=== PATIENT | female | born 1980 | race Caucasian/White ===

== ENCOUNTER 2023-09-24 13:21 | Emergency (ER) | payer MEDICARE, MEDICAID, SELFPAY ==
[2023-09-24 13:34] VITALS: BP 134/91; PULSE 80; RESP 18; TEMP 36.6; O2SAT 100
--- NOTE | 2023-09-24 13:38 | ED.URI ---
HPI - URI/Sore Throat General Chief Complaint: Upper Respiratory Infection Stated Complaint: Chest Congestion/Sore throat/Cough Time Seen by Provider: 09/24/23 13:53 Source: patient and RN notes reviewed Mode of arrival: ambulatory Limitations: no limitations History of Present Illness HPI Narrative: 43-year-old female presents concern for 2 day history of cough, chest congestion. Reports her cough is productive. She has a history of COPD and chronic bronchitis. She has been taking [id number] medications with little relief she denies fever, aches, chills, sweats MD elicited complaint: cough and sore throat Related Data Home Medications Medication Instructions Recorded Confirmed citalopram 40 mg tablet (Celexa) 40 mg PO DAILY 06/30/21 01/10/23 hydrocodone 5 mg-acetaminophen 325 1 tablet PO Q8H PRN 06/30/21 01/10/23 mg tablet omeprazole 20 mg capsule,delayed mg 09/24/23 release Allergies Allergy/AdvReac Type Severity Reaction Status Date / Time No Known Allergies Allergy Verified 09/24/23 13:39 Review of Systems Review of Systems: CONSTITUTIONAL: Denies malaise, chills, sweats, or fever. EYES: Denies visual changes, redness, or discharge. ENT: Reports rhinorrhea, congestion CARDIOVASCULAR: Denies chest pain, palpitations, or edema. RESPIRATORY: Reports cough and chest congestion. Denies dyspnea. GASTROINTESTINAL: Denies abdominal pain, nausea, vomiting, diarrhea SKIN: Denies rash or itching. MUSCULOSKELETAL: Denies myalgia. NEUROLOGIC: Denies headache. All systems reviewed & are unremarkable except as noted in HPI and below PMFSH Past Medical History Medical History Asthma Bipolar disorder Carpal tunnel syndrome, bilateral Chronic back pain Diabetes History of colon polyps HTN (hypertension) Sleep apnea Surgical History Surgical History History of carpal tunnel release of both wrists left 2011 right 2013 History of cholecystectomy History of hand surgery Right thumb tendon repair History of tonsillectomy Family History Family History Father Diabetes mellitus Hypertension Mother Depression Grandparent Cancer Grandparent Diabetes mellitus Hypertension Cancer Cerebrovascular accident Social History Social History (Updated 01/10/23 @ 14:14 by Olena Dolan MA) Smoking status: Never smoker Alcohol intake: never Substance use: current Substance use type: marijuana Lack of Transportation: No Lack of Food: Sometimes True Current Housing: I Have Housing Concerned About Future Housing: No Difficulty Paying Gas/Electric Bills: No Difficulty Paying for Meds: No Currently Unemployed: No Education: High School Diploma/GED Difficulty w/ Childcare or Family Care: No Comments At time of signature, agree with nursing past medical, surgical, social and family history. There is no relevant family history pertinent to the presenting complaint Exam Narrative: GENERAL: Well-appearing, well-nourished, and in no acute distress. HEAD: Normocephalic EYES: PERRLA, conjunctivae clear ENT: Nares clear, turbinates edematous and erythematous, clear discharge. Mucous membranes moist. TM pearly enciso with sharp light reflex bilaterally; no tragal tenderness. Oropharynx not erythematous without lesions. Tonsils not enlarged and without exudate, no drooling, no hoarseness, no trismus, uvula midline. NECK: Supple. No lymphadenopathy CHEST: Clear to auscultation, breath sounds equal. No wheezing, rhonchi, rales, or stridor. No respiratory distress, speaks in full sentences. HEART: Regular rate and rhythm. No murmur heard. SKIN: Warm, dry, no rash. NEURO: Alert and oriented x3. PSYCH: Normal mood and affect Course Course Emergency Course: Patient is aware of diagnosis, understands and agrees
== END 2023-09-24 14:07 | disposition home or self-care (01) ==
PROVIDERS: Emergency Provider Nurse Practitioner
DX: J06.9 Acute upper respiratory infection, unspecified (principal); J44.9 Chronic obstructive pulmonary disease, unspecified; F12.90 Cannabis use, unspecified, uncomplicated; E11.9 Type 2 diabetes mellitus without complications; I10 Essential (primary) hypertension
CPT/HCPCS: 87081; 87880; 99213; G0463

== ENCOUNTER 2025-02-04 18:30 | Emergency (ER) | payer MEDICARE, MEDICAID, SELFPAY ==
--- NOTE | ~2025-02-04 | XR_ITS ---
XR hip RT 2V w AP pelvis Ordering provider: Tee Ross APRN History: . right hip pain s/p fall- hx hip arthoplasty . Comparison: None. FINDINGS: BONES: No acute fracture or dislocation. HIP JOINT SPACES: Bilateral arthroplasty. SACROILIAC JOINT SPACES/LUMBAR SPINE: The sacroiliac joint spaces are normal. Mild degenerative arevalo es of the visualized lower lumbar spine. PUBIC SYMPHYSIS: Normal. SOFT TISSUES: Normal. IMPRESSION: No acute osseous abnormality pelvis and right hip. Bilateral hip arthroplasty. Reviewed, dictated and finalized at location A.
--- NOTE | ~2025-02-04 | XR_ITS ---
XR knee RT min 4V Ordering provider: Tee Ross APRN History: . right anterior lateral knee pain s/p fall . Comparison: None. FINDINGS: BONES: No acute fracture or dislocation. JOINT SPACES: Normal. SOFT TISSUES: Normal. IMPRESSION: No acute osseous abnormality right knee. Reviewed, dictated and finalized at location A.
--- NOTE | 2025-02-04 18:33 | ED_ITS ---
HPI - Extremity Injury (Lower) General Chief Complaint: Fall Stated Complaint: Fall Injury/Right knee, Leg Time Seen by Provider: 02/04/25 18:32 Source: patient Mode of arrival: ambulatory Limitations: no limitations History of Present Illness HPI Narrative: Abbie is a 44-year-old female patient presenting to the clinic today with complaints of right knee and right hip/femur pain status post fall. She reports she tripped over a tent bag handle this morning. Is having pain to the right lateral anterior knee and to the right hip/thigh. Bruising noted to the anterior knee. Is able to walk with mild to moderate pain. Rates pain 2/10 on the hip and 5/ 10 on the knee. History of bilateral hip arthroplasty Related Data Home Medications ?Medication ?Instructions ?Recorded ?Confirmed ?Last Taken ?Type citalopram 40 mg tablet (Celexa) 40 mg PO DAILY 06/30/21 01/10/23 Unknown History hydrocodone 5 mg-acetaminophen 325 1 tablet PO Q8H PRN 06/30/21 01/10/23 Unknown History mg tablet omeprazole 20 mg capsule,delayed mg 09/24/23 Unknown History release Allergies Allergy/AdvReac Type Severity Reaction Status Date / Time No Known Allergies Allergy Verified 02/04/25 18:42 Review of Systems Review of Systems: Pertinent positives per HPI. Patient denies any fever, chills, rash, headache, visual changes, dizziness, cough, runny nose, sore throat, shortness of breath, chest pain, palpitations, nausea, vomiting, diarrhea, constipation, abdominal pain, or any urinary issues. [facility] Past Medical History Medical History History of colon polyps Bipolar disorder Diabetes Carpal tunnel syndrome, bilateral Chronic back pain Sleep apnea Asthma HTN (hypertension) Surgical History Surgical History History of hand surgery Right thumb tendon repair History of carpal tunnel release of both wrists left 2010 right 2012 History of cholecystectomy History of tonsillectomy Family History Family History Father Diabetes mellitus Hypertension Mother Depression Grandparent Cancer Grandparent Diabetes mellitus Hypertension Cancer Cerebrovascular accident Social History Social History Smoking status: Never smoker Alcohol intake: never Substance use: current Substance use type: marijuana Lack of Transportation: No Lack of Food: Sometimes True Current Housing: I Have Housing Concerned About Future Housing: No Difficulty Paying Gas/Electric Bills: No Difficulty Paying for Meds: No Currently Unemployed: No Education: High School Diploma/GED Difficulty w/ Childcare or Family Care: No Comments At the time of my signature, I reviewed and agree with the nursing past medical, surgical, social, and family history. There is no relevant family history pertinent to the patient complaint. Exam Narrative: General: Well-developed, well nourished, in no apparent distress Head: Normocephalic, atraumatic. Cardio: Regular rate and rhythm, s1 and s2 normal, no murmur appreciated. Resp: Clear to auscultation bilaterally, no rhonchi, rales, wheezing or rubs. Musculoskeletal: No deformity, bruising with mild swelling to the right lateral anterior knee, no bruising or swelling noted to the right hip or femur, tender to palpation over the lateral and anterior hip as well as over the lateral a nterior knee, negative valgus and varus testing of the right knee, negative anterior and posterior drawer testing of the right knee grossly normal range of motion, muscle strength strong and equal, peripheral pulse strong, no edema, no cyanosis, normal gait and station Course Course Emergency Course: Portions of this record may have been created with voice recognition software. Level of Care: Express Care Visit Vital Signs Vital signs: Vital Signs Temperature 36.9 C 02/04/25 18:45 Pulse Rate 85 02/04/25 18:45 Respiratory Rate 20 02/04/25 18:45 Blood Pressure 152/80 H 02/04/25 18:45 Pulse Oximetry 99 02/04/25 18:45 Oxygen Delivery Room Air 02/04/25 18:45 Temperature 36.9 C 02/04/25 18:45 Pulse Rate 85 02/04/25 18:45 Respiratory Rate 20 02/04/25 18:45 Blood Pressure 152/80 H 02/04/25 18:45 Pulse Oximetry 99 02/04/25 18:45 Oxygen Delivery Room Air 02/04/25 18:45 Vital signs reviewed MDM - Extremity Injury (Lower) MDM Narrative Medical decision making narrative: At the time of visit patient is resting comfortably on the exam table. Patient appears to be nontoxic. Diagnostics: X-ray of the right hip with pelvis and right knee was performed. X-rays were negative for any sign of fracture or malalignment. Bilateral hip arthroplasties intact Plan: I suspect patient has right knee contusion of the left hip/thigh contusion. Alejandro wrap was given. Ice pack was given. Work note was given. Supportive measures were discussed with the patient and they voiced understanding discharge instructions and agrees to treatment plan. Return precautions reviewed Differential Diagnosis Differential diagnosis: Likely acute internal derangement of knee and other (Knee sprain, tibia fracture, fibula fracture, femur fracture, hip fracture, contusion, hip sprain,) Imaging Data Radiologist's impression: ITS Impressions Knee X-Ray 02/04/25 19:19 IMPRESSION: No acute osseous abnormality right knee. Hip/Pelvis X-Ray 02/04/25 19:22 IMPRESSION: No acute osseous abnormality pelvis and right hip. Bilateral hip arthroplasty. Discharge Plan Discharge Clinical Impression: Contusion of knee Qualifiers: Encounter type: initial encounter Laterality: right Qualified Code(s): S80.01XA - Contusion of right knee, initial encounter Contusion of hip and thigh Qualifiers: Encounter type: initial encounter Laterality: right Qualified Code(s): S70.01XA - Contusion of right hip, initial encounter Patient Disposition: Home Condition: Stable Instructions: Antibiotic Form, Contusion in Adults (ED), Knee Pain (ED), Hip Contusion (ED) Additional Instructions: X-ray of the right hip/femur and right knee are negative for any sign of fracture or malalignment Rest, ice, elevate, and wear alejandro wrap as directed Tylenol/motrin for pain as discussed. Gradually bear weight No running or sports until healed. Follow up with your PCP if symptoms persist more than 1 week. Patient Language: Sinhala Prescriptions: No Action omeprazole 20 mg capsule,delayed release(DR/EC) citalopram [Celexa] 40 mg tablet 40 mg PO DAILY hydrocodone-acetaminophen 5-325 mg tablet 1 tablet PO Q8H PRN Follow-up/Referrals: Anupam,Ralph Banks MD [Primary Care Provider] - Stand Alone Forms: Work/School Release IP Time of Disposition: 19:31 Quality [facility] Nursing Documentation ED NIHSS nursing documentation: reviewed/agree
--- OUTSIDE RECORDS SUMMARY | 2025-02-04 18:33 | XMS_ITS | Data Portability ---
Author Organization [facility] SATHISHGlroia Address [address] [place] [address] Assessment Encounter Date Assessment Date Assessment LastModified by Organization Details LastModified Time 07/17/2016 07/17/2016 Interested in BT L, likely not possible laparoscopically due to size and surgical hx. Discussed pros and cons on Essure. Will likely do it after annual in September [email or web address] Not available 07/17/2016 12:52:34 10/09/2016 10/09/2016 Desk Assistant exam very difficult due to extreme obesity and redundant vulvar tissue. Scheduled for essure BTL in 10 days. Discussed 50/50 chances based on difficulty of exam Not available 10/09/2016 12:05:46 11/05/2016 11/05/2016 Post op check after Essure stressed importance of f/u test in 3 months ; she wants HSG not TVU Not available 11/05/2016 17:31:24 06/25/2017 06/25/2017 discussed situation at some length. 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 Reports being promiscuous lately - will check STDs from urine. clinical breast exam negative has essure for contraception Not available 08/06/2019 14:44:19 Plan of Treatment Reminders Order Date Submit Date Provider Last Modified By Organization Details Last Modified Time Details Appointments None recorded. Lab CT + NG RNA, PCR, unspecified specimen 2018 019 arrrn [facility], [address] [facility] [facility] [address] [facility] [address], [address], [place], [address], 9 16:06:57 HBsAg (hepatitis B surface Ag), EIA, serum 2016 017 [facility], [address], [address], [place], [address], 7 07:14:11 CT + NG + TV, DNA, urine/swab 2016 017 [facility], [address] [place] [address], [address], [place], [address], 7 08:28:42 hepatitis C Ab, signal-to-c utoff, serum or plasma 2016 017 [facility], [address] [place] [address], [address], [place], [address], 7 07:14:11 HIV 1+2 AB + HIV 1 p24 Ag, qualitative immunoassay , serum 2016 017 [facility], [address] [place] [address], [address], [place], [address], 7 07:14:10 pap, IG + CT/NG/TV + reflex HPV (16+18) 2016 017 [facility], [address] [place] [address], [address], [place], [address], 7 08:40:17 Referral None recorded. Procedures None recorded. Surgeries None recorded. Imaging None recorded. Medication Orders None recorded. Patient TargetsNo targets recorded. Patient Instructions Encounter Date Encounter Id Patient Instructions Last Modified By Organization Details Last Modified Time 10/09/2016 [id number] When You Want to Lose Weight: Care Instructions [email or web address] Not available 10/09/2016 12:06:03 08/06/2019 [id number] When You Want to Lose Weight: Care Instructions Not available 08/06/2019 14:43:11 Reason for Referral None Reported. Results Created Date Observation Date Name Description Value Unit Range Abnormal Flag Note LastModifiedBy Organization Detail LastModifiedTime 10/09/19 17 10/10/2016 pap, IG + CT/NG + refle x HPV diagnosis: VITALY LOZANO IVE FOR INTRA EPITH ELIAL LESIO N AND SENIA FELIX . Not Available [facility] ([facility]) [address] [place], [address], 10/11/2016 08:40:17 10/09/19 17 10/10/2016 pap, IG + CT/NG + refle x HPV specimen adequacy: VITALY Carter SATIS FACTO RY FOR EVALU ATION . NO ENDOC ERVIC AL COMPO NENT IS IDENT IFIED . Not Available [facility] ([facility]) [address] [facility], [place], [address], 10/11/2016 08:40:17 10/09/19 17 10/10/2016 pap, IG + CT/NG + refle x HPV clinician provided ICD10: VITALY Carter Z01.4 19 Z11.3 Not Available [facility] ([facility]) [address] [place], [address], 10/11/2016 08:40:17 10/09/19 17 10/10/2016 pap, IG + CT/NG + refle x HPV performed by: HENRRY MACIAS (ASCP ) Not Available [facility] ([facility]) [address] [place], [address], 10/11/2016 08:40:17 10/09/19 17 10/10/2016 pap, IG + CT/NG + refle x HPV . . Not Available [facility] ([facility]) [address] [place], [address], 10/11/2016 08:40:17 10/09/19 17 10/10/2016 pap, IG + CT/NG + refle x HPV note: COMMEN T THE PAP SMEAR IS A SCREE KEO TEST DESIG JALIL TO AID IN THE DETEC TION OF LANEY LIGNA NT AND MALIG NANT CONDI TIONS OF THE UTERI NE CERVI X. IT IS NOT A DIAGN OSTIC PROCE DURE AND SHOUL D NOT BE USED THE SOLE MEANS OF DETEC TING CERVI MARYCHUY CANCE R. BOTH FALSE -POSI TIVE AND FALSE -NEGA TIVE REPOR TS DO OCCUR . Not Available [facility] ([facility]) [address] [place], [address], 10/11/2016 08:40:17 10/09/19 17 10/10/2016 pap, IG + CT/NG + refle x HPV test methodology: COMMEN T THIS LIQUI D BASED THINP REP(R ) PAP TEST WAS SCREE JALIL WITH THE USE OF AN IMAGE GUIDE D SYSTE M. Not Available [facility] ([facility]) [address] [place], [address], 10/11/2016 08:40:17 10/09/1910/10/2016 pap, IG + CT/NG + refle x HPV . COMMEN T THE HPV DNA REFLE X CRITE LUCIEN WERE NOT MET WITH THIS SPECI MEN RESUL T THERE FORE, NO HPV TESTI NG WAS PERFO RMED. Not Available [facility] ([facility]) [address] [place], [address], 10/11/2016 08:40:17 10/09/1910/11/2016 pap, IG + CT/NG + refle x HPV chlamydia, nuc. acid amp NEGATI VE negati ve Not Available [facility] ([facility]) [address] [place], [address], 10/11/2016 08:40:17 10/09/19 17 10/11/2016 pap, IG + CT/NG + refle x HPV gonococcus, nuc. acid amp NEGATI VE negati ve Not Available [facility] ([facility]) [address] [place], [address], 10/11/2016 08:40:17 06/25/20 17 06/26/2017 HIV 1+2 AB + HIV 1 p24 Ag, quali tativ e immun oassa y, serum HIV screen 4TH generation wrfx Non Reacti ve non reacti ve Not Available [facility] ([facility]) [address] [facility], [place], [address], 06/26/2017 07:14:10 06/25/20 17 06/26/2017 hepat itis C Ab, signa l-to- cutof f, serum or plasm a hep C virus Ab <0.1 s/co_ ratio 0.0-0. 9 Negat kaila: < 0.8 Indet ermin ate: 0.8 - 0.9 Posit kaila: > 0.9 The CDC recom mends that a posit kaila HCV antib jigna resul t be follo wed up with a HCV Nucle ic Acid Ampli ficat ion test (5507 13). Not Available [facility] ([facility]) [address] [facility], [place], [address], 06/26/2017 07:14:11 06/25/20 17 06/26/2017 HBsAg (hepa titis B surfa ce Ag), EIA, serum HBsAg screen Negati ve negati ve Not Available [facility] ([facility]) [address] [facility], [place], [address], 06/26/2017 07:14:11 06/25/20 17 06/27/2017 CT + NG + TV, DNA, urine /swab chlamydia by NE Negati ve negati ve Not Available [facility] ([facility]) [address] [place], [address], 06/27/2017 08:28:42 06/25/20 17 06/27/2017 CT + NG + TV, DNA, urine /swab gonococcus by NE Negati ve negati ve Not Available [facility] ([facility]) [address] [place], [address], 06/27/2017 08:28:42 06/25/20 17 06/27/2017 CT + NG + TV, DNA, urine /swab trich vag by NE Positi ve negati ve abnormal Not Available [facility] ([facility]) [address] [facility], [place], [address], 06/27/2017 08:28:42 08/06/20 19 08/08/2019 CT + NG + TV, DNA, urine /swab chlamydia by NE Negati ve negati ve Not Available [facility] ([facility]) [address] [place], [address], 08/08/2019 07:09:34 08/06/2008/08/2019 CT + NG + TV, DNA, urine /swab gonococcus by NE Negati ve negati ve Not Available [facility] ([facility]) [address] [place], [address], 08/08/2019 07:09:34 08/06/2008/08/2019 CT + NG + TV, DNA, urine /swab trich vag by NE Negati ve negati ve Not Available [facility] ([facility]) [address] [place], [address], 08/08/2019 07:09:34 Result Notes None recorded. Problems Name Problem SNOMED Code Status Onset Date Resolution Date Notes Provider Name and Address Organization Details Recorded Time Gestational diabetes mellitus 35109354 Active Ann-Marie martinez [place] null, [place] - [facility] 17:18:08 Pre-eclampsia 032502373 Active x 3 Ann-Marie martinez [place], [place] [facility] 17:18:08 Irregular periods 69565684 Active Aaron Slater MD Attn: Silvana archibald,[address] [facility], [place], [address], [place] - [facility] 15:01:44 Problem Notes None recorded. Procedures Surgical History Date Name Laterality Status Provider Name and Address Organization Details Recorded Time 7 Tubal Ligation completed Ann-Marie MadrigalROVERTO arteaga [facility] 11/05/2016 17:02:16 7 Date of Last Pap Smear completed Ann-Marie TrujilloROVERTO [facility] 10/11/2016 08:41:34 Caesarean Section completed Ann-Marie Trujillo, [place] [facility] 01/31/2015 17:18:08 Imaging Results None recorded. Procedure Notes None recorded. Medical Equipment None Reported. Allergies Allergen ID Allergen Name Allergen Category Reaction Reaction Severity Criticality Documentation Date Start Date Code Code System Note Provider Name and Address Organization Details Recorded Time 963 codeine medicatio n Not available Not available Not available 07/14/2014 2670 RxNorm Marisa Whitaker RN null, [facility] 4 14:51:02 Medications Name Sig Start Date Stop Date Status Note LastModified by Organization Details LastModified Time amoxicillin 500 mg capsule active Not Available Not Available Not Available atorvastatin 40 mg tablet active Not Available Not Available Not Available metformin 500 mg tablet active Not Available Not Available Not Available terconazole 0.4 % vaginal cream Insert 1 g as needed by vaginal route at bedtime for 7 days. active Not Available Not Available No t Available bupropion HCl SR 150 mg tablet,12 hr sustained-re lease active Not Available Not Available Not Available atorvastatin 20 mg tablet active Not Available Not Available Not Available labetalol 200 mg tablet active Not Available Not Available Not Available citalopram 40 mg tablet active Not Available Not Available Not Available azithromycin 250 mg tablet TAKE 2 TABLETS (500 MG) BY ORAL ROUTE ONCE DAILY FOR 1 DAY THEN 1 TABLET (250 MG) BY ORAL ROUTE ONCE DAILY FOR 4 DAYS active Not Available Not Available No t Available Necon 1/50 (28) 1 mg-50 mcg tablet active Not Available Not Available N ot Available glyburide 5 mg tablet active Not Available Not Available No t Available Novolin N NPH U-100 Insulin isophane 100 unit/mL subcutaneous susp active Not Available Not Available Not Available tizanidine 4 mg tablet active Not Available Not Available No t Available lisinopril 20 mg tablet active Not Available Not Available Not Available prednisone 20 mg tablet active Not Available Not Available Not Available terconazole 0.8 % vaginal cream active Not Available Not Available Not Available metronidazol e 500 mg tablet Take 2 tablets every 12 hours by oral route for 2 days. 2016 active Not Available Not Available Not Avai lable amlodipine 5 mg tablet active Not Available Not Available No t Available hydrocodone 10 mg-acetamino phen 325 mg tablet active Not Available Not Available Not Available tramadol 50 mg tablet active Not Available Not Available No t Available meloxicam 7.5 mg tablet active Not Available Not Available Not Available lorazepam 0.5 mg tablet active Not Available Not Available Not Available amlodipine 10 mg tablet active Not Available Not Available Not Available cephalexin 500 mg capsule active Not Available Not Available Not Available lisinopril 10 mg tablet active Not Available Not Available Not Available losartan 25 mg tablet active Not Available Not Available No t Available gabapentin 300 mg capsule active Not Available Not Available Not Available diclofenac sodium 75 mg tablet,delay ed release active Not Available Not Available N ot Available gabapentin 100 mg capsule active Not Available Not Available Not Available Novolog U-100 Insulin aspart 100 unit/mL subcutaneous solution active Not Available Not Available Not Available azelastine 137 mcg (0.1 %) nasal spray active Not Available Not Available Not Available oxycodone-ac etaminophen 7.5 mg-325 mg tablet active Not Available Not Available No t Available oxybutynin chloride 5 mg tablet active Not Available Not Available No t Available fluticasone propionate 50 mcg/actuatio n nasal spray,suspen pee active Not Available Not Available Not Available clotrimazole 1 % topical cream active Not Available Not Available Not Available medroxyproge sterone 150 mg/mL intramuscula r suspension Inject 1 mL every 3 months by intramuscul ar route for 90 days. active Not Available Not Available No t Available glipizide 5 mg tablet active Not Available Not Available No t Available metocloprami de 10 mg tablet Take 1 tablet every day by oral route for 30 days. active Not Available Not Available No t Available amoxicillin 875 mg-potassium clavulanate 125 mg tablet active Not Available Not Available Not Available buspirone 15 mg tablet active Not Available Not Available No t Available oxycodone 5 mg tablet active Not Available Not Available No t Available hydrocortiso ne 1 % topical cream with perineal applicator active Not Available Not Available N ot Available azithromycin 500 mg tablet active Not Available Not Available Not Available Sprintec (28) 0.25 mg-0.035 mg tablet active Not Available Not Available Not Available bupropion HCl XL 150 mg 24 hr tablet, extended release active Not Available Not Available Not Available ProAir HFA 90 mcg/actuatio n aerosol inhaler active Not Available Not Available Not Available Symbicort 160 mcg-4.5 mcg/actuatio n HFA aerosol inhaler active Not Available Not Available Not Available 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 2015 active Not Available Not Available Not Avai lable Hysingla ER 30 mg tablet, crush resistant, extended release active Not Available Not Available Not Available Vraylar 1.5 mg capsule active Not Available Not Available N ot Available Vitals Date Recorded Body height Body weight Body mass index (BMI) Systolic blood pressure Diastolic blood pressure Provider Name and Address Organization Details Last Updated DateTime 10/09/2016 168.91 cm 455455.2 7 g 48.6 kg/m2 128 mm[Hg] 76 mm[Hg] Ann-Marie martinez [place] [facility] 11:39:27 Date Recorded Body height Body weight Body mass index (BMI) Systolic blood pressure Diastolic blood pressure Provider Name and Address Organization Details Last Updated DateTime 11/05/2016 168.91 cm 280376.3 g 47.9 kg/m2 138 mm[Hg] 86 mm[Hg] Ann-Marie martinez [place] - [facility] 17:08:12 Date Recorded Body height Body mass index (BMI) Body weight Systolic blood pressure Diastolic blood pressure Provider Name and Address Organization Details Last Updated DateTime 06/25/2017 168.91 cm 47.3 kg/m2 026456.7 3 g 142 mm[Hg] 86 mm[Hg] Ann-Marie martinez [place] - [facility] 11:53:36 Date Recorded Body height Body weight Body mass index (BMI) Systolic blood pressure Diastolic blood pressure Provider Name and Address Organization Details Last Updated DateTime 07/17/2016 168.91 cm 367103.6 3 g 49.3 kg/m2 142 mm[Hg] 86 mm[Hg] Ann-Marie martinez [place] - [facility] 12:29:01 Date Recorded Body height Body mass index (BMI) Body weight Systolic blood pressure Diastolic blood pressure Provider Name and Address Organization Details Last Updated DateTime 08/06/2019 168.91 cm 50.6 kg/m2 488246.3 7 g 154 mm[Hg] 96 mm[Hg] Ann-Marie martinez [place] [facility] 14:09:53 Social History Question Answer Notes LastModified by Organizat ion Details LastModified Time Tobacco Smoking Status Current Every Day Smoker Ann-Marie Trujillo [place] null, [place] - [facility] 01/31/2015 17:18:08 How Many Children Do You Have? 3 Information not available 01/31/2015 How Much Tobacco Do You Smoke? 0.5 PPD Information not available 01/31/2015 Sex: Unknown Functional Status None recorded. Mental Status None recorded. Family History Relationship Description Onset Age of this Age Resolved Age Notes LastModified by Organization Details LastModified Time Maternal Grandmother Malignant tumor of breast [email or web address] Not available 03/2015 17:18:08 Paternal Grandmother Malignant tumor of breast [email or web address] Not available 03/2015 17:18:08 Notes:Both have had other ca ncers Medical History Condition Response High Blood Pressure Y Depression Y Arthritis Y High Cholesterol Y Asthma Y Gynecological History Statement/Question Response STIs/STDs Yes Abnormal Pap N Date of Last Pap Smear 10/09/2016 Current Control Method Sterilizati on Flow Heavy LMP Definite Sexually Active? Y Obstetrics History GPAL:G 3 P 3 0 0 3 Type Value Full Term 3 Living 3 Total 3 Past Encounters Encounter ID Performer Location Encounter Start Date Encounter Closed Date Diagnosis/Indication Diagnosis SNOMED-CT Code Diagnosis ICD10 Code Diagnosis Note [id number] MD Derik Hunt ([facility] [address]) [address] [place] [address] 02/14/2015 14:19:14 02/14/2015 15:06:18 Irregular periods 39462531 [id number] MD Derik Hunt ([facility] [address]) [address] [place] [address] 04/01/2015 14:44:11 04/01/2015 15:09:38 Contraception care management [id number] MD Derik Hunt ([facility] [address]) [address] [facility] [place] [address] 07/17/2016 11:47:14 07/17/2016 14:14:30 Sterilization requested 489580761 Z30.2 [id number] MD Derik Hunt ([facility] [address]) [address] [facility] [place] [address] 10/09/2016 11:14:09 10/09/2016 14:03:51 Gynecologic examination 34248328 Z01.419 Morbid obesity 092588226 E66.01 [id number] MD Derik Hunt ([facility] [address]) [address] [facility] [place] [address] 11/05/2016 16:59:30 11/06/2016 10:52:06 Postoperative visit 973363787 Z09 [id number] MD Derik Hunt ([facility] [address]) [address] [facility] [place] [address] 06/25/2017 11:40:46 06/25/2017 16:09:17 Body mass index 40+ - severely obese 924353247 Z68.42 High risk sexual behavior 564377168 Z72.51 [id number] MD Derik Hunt [address] OB [address] [facility] [address] [place] [address] 08/06/2019 13:52:13 08/11/2019 16:06:07 Physical examination 3774076 Z04.9 High risk sexual behavior 559690029 Z72.51 Morbid obesity 272041683 E66.01 Health Concerns Section Related Observation LastModified by Organization Detai ls LastModified Time None Recorded Concern Status LastModified by Organization Details LastModified Time None Recorded Advance Directives Directive None Recorded Payers Insurance Date Sequence Insurance Name Policy Number Policy Casarez Covered Member ID Casarez Member ID Guarantor Name 09/11/2019 2 [facility] (MEDICAID HMO) Abbie Navas [id number] Abbie Navas 09/11/2019 1 [facility] (MEDICARE REPLACEMENT/AD VANTAGE - HMO) [id number] Abbie Navas [id number] Abbie Navas 02/14/2015 1 [place] [facility] OF PUBLIC AID Abbie Navas [id number] Abbie Navas 09/11/2019 2 [place] WHEN MEDICARE OR MEDICARE REPLACEMENT PRIMARY) Abbie Baecarol [id number] Abbie Navas 07/16/2019 1 [place] Abbie Navas [id number] Abbie Navas 08/03/2019 [place] [facility] Abbie Hamm Yosef [id number] Abbie Hamm Yosef Notes Date Note Type Note Provider Name and Address Organization Details Recorded Time 10/09/2016 text/html Annual GYNReport ed bypatient.Menstrua l cycle:Normal menses Urinary symptoms:No hematuria; No incontinence Vulva:No genital lesion Vagina:Normal vaginal discharge Breast:No breast pain; No breast lump; No nipple discharge Current Contraception:Cond oms Sexual complaints:No sexual complaints; No pain during intercourse; Normal libido Menopausal Symptoms:No menopausal symptoms; Normal vaginal lubrication Psychological symptoms:No depression; No anxiety; No PMDD Aaron Slater MD Attn: Accounting[address] [facility] [address] [place] [address] 10/09/2016 12:06:22 08/06/2019 text/html Annual GYNReport ed bypatient.Menstrua l cycle:Normal menses Urinary symptoms:No hematuria; No incontinence Vulva:No genital lesion Vagina:Normal vaginal discharge Breast:No breast pain; No breast lump; No nipple discharge Current Contraception:Tuba l ligation Sexual complaints:No sexual complaints; No pain during intercourse; Normal libido Menopausal Symptoms:No menopausal symptoms; Normal vaginal lubrication Psychological symptoms:No depression; No anxiety; No PMDD Aaron Slater MD Attn: [address] [place], [address] 08/06/2019 14:44:45 OBGyn Episode Ob Episode Information Episode Created Date Number of Fetuses Patient Bloodtype Patient rh Status Prepregnancy Weight lbs Domestic Partner Domestic Partner Phone Father Name Medical Policy Specialist Status 02/01/20 15 1 CLOSED Fetus Data First Name Last Name Admitted to NICU Weight (g) Sex Living Outcome Pediatric Complications Fetus ID Race Codes Race Delivery Type 3941.71 [phone] [id number] Barry Calculation Initial Barry Date Initial Exam Date Initial Exam Provider Initial Ultrasound Date Last Menstrual Period Date Ultra Sound Weeks Gestation 0 Eighteen To Twenty Week Barry Update Ultra Sound Date Fundal Height At Umbil Quickening Date Ultra Sound Latest Weeks Gestation Final Barry Confirmed By Final Barry Confirmed Date Final Barry Date Ultra Sound Latest Days Gestation 0 0 Menstrual History Last Menstrual Date Menses Monthly On Bcp Conception Prior Menses Frequency Hcg Plus Date Menarche Onset Age Delivery Information Delivery Date Delivery Type Labor Anesthesia Weeks Gestation Incision Type Labor Labor Length Hrs Delivered By Post Complications Tubal Sterilization Discharge Date Comments 5 Dolan Discharge Information Feeding Method Contraceptive Method Maternal HG B and HCT Levels Ob Episode Information Episode Created Date Number of Fetuses Patient Bloodtype Patient rh Status Prepregnancy Weight lbs Domestic Partner Domestic Partner Phone Father Name Medical Policy Specialist Status 02/01/20 15 1 CLOSED Fetus Data First Name Last Name Admitted to NICU Weight (g) Sex Living Outcome Pediatric Complications Fetus ID Race Codes Race Delivery Type 4962.29 [phone] [id number] Barry Calculation Initial Barry Date Initial Exam Date Initial Exam Provider Initial Ultrasound Date Last Menstrual Period Date Ultra Sound Weeks Gestation 0 Eighteen To Twenty Week Barry Update Ultra Sound Date Fundal Height At Umbil Quickening Date Ultra Sound Latest Weeks Gestation Final Barry Confirmed By Final Barry Confirmed Date Final Barry Date Ultra Sound Latest Days Gestation 0 0 Menstrual History Last Menstrual Date Menses Monthly On Bcp Conception Prior Menses Frequency Hcg Plus Date Menarche Onset Age Delivery Information Delivery Date Delivery Type Labor Anesthesia Weeks Gestation Incision Type Labor Labor Length Hrs Delivered By Post Complications Tubal Sterilization Discharge Date Comments 3 Dolan/D a vid Jeremy Discharge Information Feeding Method Contraceptive Method Maternal HG B and HCT Levels Ob Episode Information Episode Created Date Number of Fetuses Patient Bloodtype Patient rh Status Prepregnancy Weight lbs Domestic Partner Domestic Partner Phone Father Name Medical Policy Specialist Status 02/01/20 15 1 CLOSED Fetus Data First Name Last Name Admitted to NICU Weight (g) Sex Living Outcome Pediatric Complications Fetus ID Race Codes Race Delivery Type 4368.09 [phone] F [id number] Barry Calculation Initial Barry Date Initial Exam Date Initial Exam Provider Initial Ultrasound Date Last Menstrual Period Date Ultra Sound Weeks Gestation 0 Eighteen To Twenty Week Barry Update Ultra Sound Date Fundal Height At Umbil Quickening Date Ultra Sound Latest Weeks Gestation Final Barry Confirmed By Final Barry Confirmed Date Final Barry Date Ultra Sound Latest Days Gestation 0 0 Menstrual History Last Menstrual Date Menses Monthly On Bcp Conception Prior Menses Frequency Hcg Plus Date Menarche Onset Age Delivery Information Delivery Date Delivery Type Labor Anesthesia Weeks Gestation Incision Type Labor Labor Length Hrs Delivered By Post Complications Tubal Sterilization Discharge Date Comments 1 36 [place] Discharge Information Feeding Method Contraceptive Method Maternal HG B and HCT Levels
--- OUTSIDE RECORDS SUMMARY | 2025-02-04 18:33 | XMS_ITS | Continuity of Care Document ---
Author Organization [employer] [place] Address [address] [place] [address] [address] [place] [address] Phone Care Team Providers Care Spinneret Person Name Role Phone Susie Aram GARG Unavailable Unavailable Procedures Procedure Date Therapeutic Activities Neuromuscular Re-Ed Therapeutic Exercise Manual Therapy PT Evaluation Moderate Complexity Therapeutic Activities Neuromuscular Re-Ed Manual Therapy Therapeutic Activities Neuromuscular Re-Ed Therapeutic Exercise Therapeutic Activities Neuromuscular Re-Ed Therapeutic Exercise Therapeutic Activities Neuromuscular Re-Ed Therapeutic Exercise Therapeutic Activities Neuromuscular Re-Ed Therapeutic Exercise Therapeutic Activities Neuromuscular Re-Ed Therapeutic Exercise Therapeutic Activities Neuromuscular Re-Ed Therapeutic Exercise Therapeutic Activities Neuromuscular Re-Ed Therapeutic Exercise Therapeutic Activities Neuromuscular Re-Ed Therapeutic Exercise Therapeutic Activities Neuromuscular Re-Ed Therapeutic Exercise Hot or Cold Pack Therapeutic Activities Neuromuscular Re-Ed Therapeutic Exercise Therapeutic Activities Neuromuscular Re-Ed Therapeutic Exercise Hot or Cold Pack Therapeutic Activities Neuromuscular Re-Ed Therapeutic Exercise Hot or Cold Pack Progress Note Therapeutic Activities Neuromuscular Re-Ed Therapeutic Exercise Therapeutic Activities Neuromuscular Re-Ed Therapeutic Exercise Hot or Cold Pack Therapeutic Activities Neuromuscular Re-Ed Therapeutic Exercise Hot or Cold Pack Therapeutic Activities Neuromuscular Re-Ed Therapeutic Exercise Hot or Cold Pack Therapeutic Activities Neuromuscular Re-Ed Therapeutic Exercise Hot or Cold Pack Therapeutic Activities Neuromuscular Re-Ed Therapeutic Exercise Hot or Cold Pack Therapeutic Activities Neuromuscular Re-Ed Therapeutic Exercise Hot or Cold Pack Therapeutic Activities Neuromuscular Re-Ed Therapeutic Exercise Hot or Cold Pack Therapeutic Activities Neuromuscular Re-Ed Therapeutic Exercise Hot or Cold Pack Neuromuscular Re-Ed Therapeutic Exercise Hot or Cold Pack Neuromuscular Re-Ed Therapeutic Exercise Hot or Cold Pack PT Evaluation Low Complexity Neuromuscular Re-Ed Therapeutic Exercise Hot or Cold Pack Therapeutic Activities Neuromuscular Re-Ed Therapeutic Exercise Manual Therapy Therapeutic Activities Neuromuscular Re-Ed Therapeutic Exercise Manual Therapy Therapeutic Activities Neuromuscular Re-Ed Therapeutic Activities Neuromuscular Re-Ed Therapeutic Exercise Progress Note Therapeutic Activities Neuromuscular Re-Ed Therapeutic Exercise Therapeutic Activities Neuromuscular Re-Ed Therapeutic Exercise Therapeutic Activities Neuromuscular Re-Ed Therapeutic Exercise Therapeutic Activities Neuromuscular Re-Ed Therapeutic Exercise Therapeutic Activities Neuromuscular Re-Ed Therapeutic Exercise Therapeutic Activities Neuromuscular Re-Ed Therapeutic Exercise Therapeutic Activities Neuromuscular Re-Ed Therapeutic Exercise Therapeutic Activities Neuromuscular Re-Ed Therapeutic Exercise Therapeutic Activities Therapeutic Exercise Neuromuscular Re-Ed Therapeutic Activities Neuromuscular Re-Ed Therapeutic Exercise Therapeutic Activities Therapeutic Exercise Neuromuscular Re-Ed Therapeutic Activities Neuromuscular Re-Ed Therapeutic Exercise Therapeutic Activities Neuromuscular Re-Ed Therapeutic Exercise PT Evaluation Moderate Complexity Therapeutic Activities Neuromuscular Re-Ed Hot or Cold Pack Therapeutic Exercise Therapeutic Activities Manual Therapy Hot or Cold Pack Therapeutic Exercise Manual Therapy Hot or Cold Pack Therapeutic Exercise Manual Therapy Hot or Cold Pack Therapeutic Exercise Manual Therapy Hot or Cold Pack Therapeutic Exercise Manual Therapy Hot or Cold Pack Therapeutic Activities Manual Therapy Hot or Cold Pack Therapeutic Activities Manual Therapy Hot or Cold Pack PT Evaluation High Complexity Therapeutic Exercise Hot or Cold Pack Progress Note Therapeutic Exercise Manual Therapy Self Care - Current Self Care - Goal Self Care - Discharge Therapeutic Exercise Manual Therapy Hot or Cold Pack Therapeutic Exercise Manual Therapy Hot or Cold Pack Therapeutic Exercise Manual Therapy Hot or Cold Pack Progress Note Therapeutic Exercise Therapeutic Activities Manual Therapy Self Care - Current Self Care - Goal Therapeutic Exercise Manual Therapy Hot or Cold Pack Therapeutic Exercise Manual Therapy Hot or Cold Pack Therapeutic Exercise Manual Therapy Hot or Cold Pack Therapeutic Exercise Manual Therapy Hot or Cold Pack Therapeutic Exercise Therapeutic Activities Hot or Cold Pack Therapeutic Exercise Therapeutic Activities Manual Therapy Hot or Cold Pack Therapeutic Exercise Therapeutic Activities Manual Therapy Hot or Cold Pack Therapeutic Exercise Therapeutic Activities Manual Therapy Hot or Cold Pack Therapeutic Activities Manual Therapy Hot or Cold Pack Self Care - Current Self Care - Goal Therapeutic Activities Manual Therapy Hot or Cold Pack Therapeutic Exercise Therapeutic Activities Manual Therapy Hot or Cold Pack Therapeutic Exercise Therapeutic Activities Manual Therapy Hot or Cold Pack Therapeutic Exercise Therapeutic Activities Manual Therapy Hot or Cold Pack Therapeutic Exercise Therapeutic Activities Manual Therapy Hot or Cold Pack Therapeutic Exercise Therapeutic Activities Neuromuscular Re-Ed Manual Therapy Hot or Cold Pack Therapeutic Exercise Manual Therapy Hot or Cold Pack Therapeutic Exercise Therapeutic Activities Neuromuscular Re-Ed Manual Therapy Hot or Cold Pack Therapeutic Exercise Therapeutic Activities Manual Therapy Hot or Cold Pack Self Care - Current Self Care - Goal PT Evaluation High Complexity 8 Therapeutic Exercise Manual Therapy Hot or Cold Pack Self Care - Current Self Care - Goal Therapeutic Exercise Manual Therapy Hot or Cold Pack Self Care - Current Self Care - Goal Therapeutic Exercise Manual Therapy Therapeutic Exercise Manual Therapy Therapeutic Exercise Manual Therapy THERAPEUTIC EXERCISES NEUROMUSCULAR RE-ED MANUAL THERAPY FUNC ACTIVITY THERAPEUTIC EXERCISES NEUROMUSCULAR RE-ED MANUAL THERAPY FUNC ACTIVITY THERAPEUTIC EXERCISES NEUROMUSCULAR RE-ED MANUAL THERAPY FUNC ACTIVITY THERAPEUTIC EXERCISES NEUROMUSCULAR RE-ED MANUAL THERAPY FUNC ACTIVITY THERAPEUTIC EXERCISES NEUROMUSCULAR RE-ED MANUAL THERAPY FUNC ACTIVITY Progress Note THERAPEUTIC EXERCISES NEUROMUSCULAR RE-ED MANUAL THERAPY FUNC ACTIVITY Self Care - Current Self Care - Goal THERAPEUTIC EXERCISES NEUROMUSCULAR RE-ED MANUAL THERAPY FUNC ACTIVITY THERAPEUTIC EXERCISES NEUROMUSCULAR RE-ED MANUAL THERAPY FUNC ACTIVITY THERAPEUTIC EXERCISES NEUROMUSCULAR RE-ED MANUAL THERAPY FUNC ACTIVITY THERAPEUTIC EXERCISES NEUROMUSCULAR RE-ED FUNC ACTIVITY THERAPEUTIC EXERCISES NEUROMUSCULAR RE-ED MANUAL THERAPY FUNC ACTIVITY THERAPEUTIC EXERCISES NEUROMUSCULAR RE-ED MANUAL THERAPY FUNC ACTIVITY THERAPEUTIC EXERCISES NEUROMUSCULAR RE-ED MANUAL THERAPY FUNC ACTIVITY THERAPEUTIC EXERCISES NEUROMUSCULAR RE-ED MANUAL THERAPY FUNC ACTIVITY PT Evaluation Moderate Complexity THERAPEUTIC EXERCISES NEUROMUSCULAR RE-ED FUNC ACTIVITY Self Care - Current Self Care - Goal Medications Name Dose Freq Route DOC Oct Pain Assess Positive DOC 2016 BMI High F/U Plan DOC Functional Outcome Assessmen t documented, deficits identified, treatment plan es Progress Note THERAPEUTIC EXERCISES NEUROMUSCULAR RE-ED FUNC ACTIVITY Self Care - Current Self Care - Goal Medications Name Dose Freq Route DOC Jul THERAPEUTIC EXERCISES NEUROMUSCULAR RE-ED FUNC ACTIVITY THERAPEUTIC EXERCISES NEUROMUSCULAR RE-ED FUNC ACTIVITY THERAPEUTIC EXERCISES NEUROMUSCULAR RE-ED FUNC ACTIVITY THERAPEUTIC EXERCISES NEUROMUSCULAR RE-ED MANUAL THERAPY FUNC ACTIVITY THERAPEUTIC EXERCISES NEUROMUSCULAR RE-ED MANUAL THERAPY FUNC ACTIVITY THERAPEUTIC EXERCISES NEUROMUSCULAR RE-ED MANUAL THERAPY FUNC ACTIVITY THERAPEUTIC EXERCISES NEUROMUSCULAR RE-ED MANUAL THERAPY FUNC ACTIVITY THERAPEUTIC EXERCISES NEUROMUSCULAR RE-ED MANUAL THERAPY FUNC ACTIVITY Progress Note THERAPEUTIC EXERCISES NEUROMUSCULAR RE-ED MANUAL THERAPY FUNC ACTIVITY Self Care - Current Self Care - Goal Medications Name Dose Freq Route DOC May THERAPEUTIC EXERCISES NEUROMUSCULAR RE-ED MANUAL THERAPY FUNC ACTIVITY THERAPEUTIC EXERCISES NEUROMUSCULAR RE-ED FUNC ACTIVITY THERAPEUTIC EXERCISES NEUROMUSCULAR RE-ED FUNC ACTIVITY THERAPEUTIC EXERCISES NEUROMUSCULAR RE-ED MANUAL THERAPY FUNC ACTIVITY THERAPEUTIC EXERCISES NEUROMUSCULAR RE-ED MANUAL THERAPY FUNC ACTIVITY THERAPEUTIC EXERCISES NEUROMUSCULAR RE-ED MANUAL THERAPY FUNC ACTIVITY Progress Note THERAPEUTIC EXERCISES NEUROMUSCULAR RE-ED MANUAL THERAPY FUNC ACTIVITY Self Care - Current Self Care - Goal Medications Name Dose Freq Route DOC Apr THERAPEUTIC EXERCISES NEUROMUSCULAR RE-ED MANUAL THERAPY FUNC ACTIVITY THERAPEUTIC EXERCISES NEUROMUSCULAR RE-ED MANUAL THERAPY FUNC ACTIVITY THERAPEUTIC EXERCISES NEUROMUSCULAR RE-ED MANUAL THERAPY FUNC ACTIVITY THERAPEUTIC EXERCISES NEUROMUSCULAR RE-ED MANUAL THERAPY FUNC ACTIVITY THERAPEUTIC EXERCISES NEUROMUSCULAR RE-ED MANUAL THERAPY FUNC ACTIVITY THERAPEUTIC EXERCISES MANUAL THERAPY FUNC ACTIVITY THERAPEUTIC EXERCISES MANUAL THERAPY FUNC ACTIVITY PT EVALUATION THERAPEUTIC EXERCISES Self Care - Current Self Care - Goal Medications Name Dose Freq Route DOC Mar Pain Assess Positive DOC 2015 BMI High F/U Plan DOC Functional Outcome Assessment documented , no deficits identified Advance Directives Directive Yes / No Effective Date File Name No Information Encounters Encounter Description Practice Location Reason(s) For Visit Diagnoses Date Provider Providers Copied on Encounter [facility], [place], [place], [address], tel:[phone] Lenny No Information 4 Susie Chiu. . [facility], [place], [place], [address], tel:[phone] Lenny No Information [address] [facility], [address], [place], [place], [facility], [place]. tel:[phone] Referring Provider: Michael Ball, 2 [facility] [address], [place], [address]. tel:[phone] [facility], [place], [place], [address], [place] tel:[phone] Lenny No Information 4 Susie Chiu. . Referring Provider: Michael Ball, 2 [facility] [address], [place], [address]. tel:[phone] [facility] [address], [place], [place], [address], [place] tel:[phone] [place] No Information 3 Susie Chiu. . Referring Provider: Imer Scott, [address] [place] [address] [address], [place], [address]. tel:[phone] [facility] [address], [place], [place], [address], [place] tel:[phone] Lenny No Information [address] [facility], [address], [place], [address], [place]. tel:[phone] Referring Provider: Imer Scott, [address] [place] [address] [address], [place], [address]. tel:[phone] [facility] [address], [place], [place], [address], tel:[phone] [place] No Information [address] [facility], [address], [place], [address], [place]. tel:[phone] Referring Provider: Imer Scott, [address] [place] [address] [address], [place], [address]. tel:[phone], [place], [place], [address], tel:[phone] [place]enny No Information 0 3 Maru Cancino. [address] [place] [address], [address], [place], [address], [place]. tel:[phone] Referring Provider: Imer Scott, [address] [place] [address] [address], [place], [address]. tel:[phone] [address], [place], [place], [address], tel:[phone] [place]enny No Information 0 3 Maru Cancino. [address] [place] [address], [address], [place], [address], [place]. tel:[phone] Referring Provider: Imer Scott, [address] [place] [address] [address], [place], [address]. tel:[phone], [place], [place], [address], [place] tel:[phone] [place] No Information 3 Maru Cancino. [address] [place] [address], [address], [place], [address], [place]. tel:[phone] Referring Provider: Imer Scott, [address] [place] [address] [address], [place], [address]. tel:[phone], [place], [place], [address], tel:[phone] [place] No Information 3 Maru Cancino. [address] [place] [address], [address], [place], [address], [place]. tel:[phone] Referring Provider: Imer Scott, [address] [place] [address] [address], [place], [address]. tel:[phone], [place], [place], [address], tel:[phone] Lenny No Information May-0 [address] [facility], [address], [place], [address], [place]. tel:[phone] Referring Provider: Imer Scott, [address] [place] [address] [address], [place], [address]. tel:[phone] [address], [place], [place], [address], tel:[phone] [place] No Information May-0 4- 3 Maru Cancino. [address] [place] [address], [address], [place], [address], [place]. tel:[phone] Referring Provider: Imer Scott, [address] [place] [address] [address], [place], [address]. tel:[phone] [address], [place], [place], [address], [place] tel:[phone] [place]enny No Information May-0 1-202 3 Short Brandy. . Referring Provider: Imer Scott, [address] [place] [address] [address], [place], [address]. tel:[phone], [place], [place], [address], [place] tel:[phone] [place] No Information Apr-2 3 Maru Cancino. [address] [place] [address], [address], [place], [address], [place]. tel:[phone] Referring Provider: Imer Scott, [address] [place] [address] [address], [place], [address]. tel:[phone], [place], [place], [address], [place] tel:[phone] [place] No Information Apr-2 3 Maru Cancino. [address] [place] [address], [address], [place], [place], [facility], [place]. tel:[phone] Referring Provider: Imer Scott, [address] [place] [address] [address], [place], [address]. tel:[phone] [facility] [address], [place], [place], [address], [place] tel:[phone] [place] No Information Apr-2 - 3 Short Brandy. . Referring Provider: Imer Scott, [address] [place] [address] [address], [place], [address]. tel:[phone] [facility] [address] [place], [place] [address], [place], [place], [address], tel:[phone] Lenny No Information Apr-1 3 Maru Cancino. [address] [place] [address], [address], [place], [place], [facility], [place]. tel:[phone] Referring Provider: Imer Scott, [address] [place] [address] [address], [place], [address]. tel:[phone] [facility] [address] [place], [place] [address], [place], [place], [address], [place] tel:[phone] Lenny No Information Apr-1 3 Maru Cancino. [address] [place] [address], [address], [place], [address], [place]. tel:[phone] Referring Provider: Imer Scott, [address] [place] [address] [address], [place], [address]. tel:[phone] [address], [place], [place], [address], [place] tel:[phone] [place] No Information Apr-0 3 Maru Cancino. [address] [place] [address], [address], [place], [address], [place]. tel:[phone] Referring Provider: Imer Scott, 4 [facility] [address], [place], [address]. tel:[phone], [place], [place], [address], [place] tel:[phone] Lenny No Information Apr-0 3-[address] [facility], [address], [place], [address], [place]. tel:[phone] Referring Provider: Imer Scott, 4 [facility] [address], [place], [address]. tel:[phone], [place], [place], [address], [place] tel:[phone] [place] No Information Mar-3 0-202 3 Maru Cancino. [address] [place] [address], [address], [place], [address], [place]. tel:[phone] Referring Provider: Imer Scott, 4 [facility] [address], [place], [address]. tel:[phone], [place], [place], [address], [place] tel:[phone] [place] No Information Mar-2 7-202 3 Maru Cancino. [address] [place] [address], [address], [place], [address], [place]. tel:[phone] Referring Provider: Imer Scott, [address] [place] [address] [address], [place], [address]. tel:[phone], [place], [place], [address], [place] tel:[phone] Lenny No Information Mar-2 3-202 3 Maru Cancino. [address] [place] [address], [address], [place], [address], [place]. tel:[phone] Referring Provider: Imer Scott, [address] [place] [address] [address], [place], [address]. tel:[phone] [facility], [address] [place] [address] [address], [place], [place], [address], [place] tel:[phone] [place] No Information Mar-2 0-[address] [facility], [address], [place], [facility], . tel:[phone] Referring Provider: Imer Scott, [address] [place] [address] [address], [place], [address]. tel:[phone] [address], [place], [place], [address], tel:[phone] Lenny No Information Mar-1 7-202 3 Maru Cancino. [address] [place] [address], [address], [place], [facility], . tel:[phone] Referring Provider: Imer Scott, [address] [place] [address] [address], [place], [address]. tel:[phone] [address], [place], [place], [address], tel:[phone] Lenny No Information Mar-1 3-202 3 Maru Cancino. [address] [place] [address], [address], [place], [facility], [place]. tel:[phone] Referring Provider: Imer Scott, [address] [place] [address] [address], [place], [address]. tel:[phone] [facility] [address] [place], [place] [address], [address], [place] tel:[phone] [place] No Information Mar-0 9-202 3 Short Brandy. . Referring Provider: Imer Scott, [address] [place] [address] [address], [place], [address]. tel:[phone], [place], [place], [address], tel:[phone] [place] No Information Feb-0 6-202 3 Garrels Zaida. . Referring Provider: Imer Scott, [address] [facility] [address], [place], [address]. tel:[phone] [facility], [address], [place], [place], [address], [place] tel:[phone] [place] No Information 3 Chema Cerda. . Referring Provider: Imer Scott, [address] [facility] [address], [place], [address]. tel:[phone] [facility], [place], [place], [address], [place] tel:[phone] [place] No Information 3 Rashid Rangel. . Referring Provider: Imer Scott, [address] [place] [address] [address], [place], [address]. tel:[phone] [facility], [address], [place], [place], [address], [place] tel:[phone] [place] No Information 3 Maru Cancino. [address] [place] [address], [address], [place], [facility], [place]. tel:[phone] Referring Provider: Imer Scott, [address] [place] [address] [address], [place], [address]. tel:[phone] [facility], [place], [place], [address], [place] tel:[phone] [place] No Information 3 Susie Chiu. . Referring Provider: Imer Scott, [address] [facility] [address], [place], [address]. tel:[phone] [facility], [place], [place], [address], [place] tel:[phone] [place] No Information 3 Rashid Rangel. . Referring Provider: Imer Scott, [address] [facility] [address], [place], [address]. tel:[phone] [facility], [place], [place], [address], [place] tel:[phone] Lenny No Information 3 Hisky Aram. . Referring Provider: Imer Scott, [address] [facility] [address], [place], [address]. tel:[phone] [facility], [address], [place], [place], [address], [place] tel:[phone] [place] No Information [address] [facility], [address], [place], [address], [place]. tel:[phone] Referring Provider: Imer Scott, [address] [facility] [address], [place], [address]. tel:[phone] [facility], [address], [place], [place], [address], [place] tel:[phone] [place] No Information 3 Hisky Aram. . Referring Provider: Imer Scott, [address] [facility] [address], [place], [address]. tel:[phone] [facility], [address], [place], [place], [address], [place] tel:[phone] [place] No Information 3 Hisky Aram. . Referring Provider: Imer Scott, [address] [facility] [address], [place], [address]. tel:[phone] [facility] [address], [place], [place], [address], [place] tel:[phone] [place] No Information [address] [facility], [address], [place], [address], [place]. tel:[phone] Referring Provider: Imer Scott, [address] [facility] [address], [place], [address]. tel:[phone] [facility], [address], [place], [place], [address], [place] tel:[phone] [place] No Information [address] [facility], [address], [place], [address], [place]. tel:[phone] Referring Provider: Imer Scott, [address] [place] [address] [address], [place], [address]. tel:[phone] [facility], [facility] [address], [place], [place], [address], [place] tel:[phone] Lenny No Information Dec-[address] [facility], [address], [place], [address], [place]. tel:[phone] Referring Provider: Imer Scott, [address] [facility] [address], [place], [address]. tel:[phone] [facility], [facility] [address], [place], [place], [address], [place] tel:[phone] [place] No Information Dec- [address] [facility], [address], [place], [address], [place]. tel:[phone] Referring Provider: Imer Scott, [address] [place] [address] [address], [place], [address]. tel:[phone] [facility] [address], [place], [place], [address], [place] tel:[phone] [place] No Information Dec-1 2 Susie Chiu. . Referring Provider: Imer Scott, [address] [facility] [address], [place], [address]. tel:[phone] [facility] [address], [place], [place], [address], [place] tel:[phone] [place] No Information Dec- 2 Chema Cerda. . Referring Provider: Imer Scott, [address] [facility] [address], [place], [address]. tel:[phone] [facility] [address], [place], [place], [address], [place] tel:[phone] [place] No Information [address] [facility], [address], [place], [address], [place]. tel:[phone] Referring Provider: Imer Scott, [address] [facility] [address], [place], [address]. tel:[phone] [facility] [address], [place], [place], [address], [place] tel:[phone] [place] No Information 2 Susie Aram. . Referring Provider: Imer Scott, [address] [place] [address] [address], [place], [address]. tel:[phone] [facility] [address], [place], [place], [address], [place] tel:[phone] Lenny Low back painPain in right hipWeakst. vincent randolph hospitalOth symptoms and signs involving the musculoskeletal system December- 0 9 Maru Cancino. [address] [place] [address], [address], [place], [address], [place]. tel:[phone] [facility] [address], [place], [place], [address], [place] tel:[phone] [place] Low back painPain in right hipWeakst. vincent randolph hospitalOth symptoms and signs involving the musculoskeletal system December-[address] [facility], [address], [place], [address], [place]. tel:[phone], [place], [place], [address], [place] tel:[phone] Lenny Low back painPain in right hipWeakst. vincent randolph hospitalOth symptoms and signs involving the musculoskeletal system Nov-2 [address] [facility], [address], [place], [address], [place]. tel:[phone] [place] [address] [address], [place], [place], [address], [place] tel:[phone] Lenny Low back painPain in right hipWeaknessOth symptoms and signs involving the musculoskeletal system Apr-2 6-[address] [facility], [address], [place], [address], [place]. tel:[phone] [place] [address], [facility] [address], [place], [place], [address], [place] tel:[phone] [place] Low back painPain in right hipWeaknessOth symptoms and signs involving the musculoskeletal system Apr-2 4-[address] [facility], [address], [place], [address], [place]. tel:[phone] [place] [address] [facility] [address], [place], [place], [address], [place] tel:[phone] [place] Low back painPain in right hipWeakst. vincent randolph hospitalOth symptoms and signs involving the musculoskeletal system Apr-1 9-[address] [facility], [address], [place], [address], [place]. tel:[phone] [place] [address] [place] [address], [place], [place], [address], [place] tel:[phone] Lenny Low back painPain in right hipWeaknessOth symptoms and signs involving the musculoskeletal system Apr-1 2-201 9 Maru Cancino. [address] [place] [address], [address], [place], [address], [place]. tel:[phone] [place] [id number] [place] [address], [place], [place], [address], [place] tel:[phone] [place] Low back painPain in right hipWeaknessOth symptoms and signs involving the musculoskeletal system Apr-1 0-201 9 Kael Hodge. . [facility], [place], [place], [address], [place] tel:[phone] [place] Pain in right hipOther abnormalities of gait and mobilityMuscle weakness (generalized)Abn ormal postureStiffness of right hip, not elsewhere classified 8 Montez Scout. . [facility], [place], [place], [address], [place] tel:[phone] [place] Pain in right hipOther abnormalities of gait and mobilityMuscle weakness (generalized)Abn ormal postureStiffness of right hip, not elsewhere classified [address] [facility], [address], [place], [address], [place]. tel:[phone] [place] [address] [place] [address], [place], [place], [address], [place] tel:[phone] [place] Pain in right hipOther abnormalities of gait and mobilityMuscle weakness (generalized)Abn ormal postureStiffness of right hip, not elsewhere classified 8 Maru Cancino. [address] [facility], [address], [place], [address], [place]. tel:[phone] [place] [address] [address] [address], [place], [place], [address], [place] tel:[phone] Lenny Pain in right hipOther abnormalities of gait and mobilityMuscle weakness (generalized)Abn ormal postureStiffness of right hip, not elsewhere classified [address] [facility], [address], [place], [address], [place]. tel:[phone] [place], [place] [id number] [address] [address], [place], [place], [address], [place] tel:[phone] [place] Pain in right hipOther abnormalities of gait and mobilityMuscle weakness (generalized)Abn ormal postureStiffness of right hip, not elsewhere classified 8 Montez Scout. . [facility], [place], [place], [address], [place] tel:[phone] [place] Pain in right hipOther abnormalities of gait and mobilityMuscle weakness (generalized)Abn ormal postureStiffness of right hip, not elsewhere classified [address] [facility], [address], [place], [address], [place]. tel:[phone] [place], [place] [id number] [place] [address], [place], [place], [address], [place] tel:[phone] [place] Pain in right hipOther abnormalities of gait and mobilityMuscle weakness (generalized)Abn ormal postureStiffness of right hip, not elsewhere classified [address] [facility], [address], [place], [address], [place]. tel:[phone] [place] [address] [place] [address], [place], [place], [address], [place] tel:[phone] Lenny Pain in right hipOther abnormalities of gait and mobilityMuscle weakness (generalized)Abn ormal postureStiffness of right hip, not elsewhere classified [address] [facility], [address], [place], [address], [place]. tel:[phone] [place] [address] [address], [place], [place], [address], [place] tel:[phone] [place] Pain in right hipOther abnormalities of gait and mobilityMuscle weakness (generalized)Abn ormal postureStiffness of right hip, not elsewhere classified [address] [facility], [address], [place], [address], [place]. tel:[phone] [place], [place] [address] [place] [address], [place], [place], [address], [place] tel:[phone] Lenny Pain in right hipOther abnormalities of gait and mobilityMuscle weakness (generalized)Abn ormal postureStiffness of right hip, not elsewhere classified [address] [facility], [address], [place], [address], [place]. tel:[phone] [place], [place] [address] [place] [address], [place], [place], [address], [place] tel:[phone] [place] Pain in right hipOther abnormalities of gait and mobilityMuscle weakness (generalized)Abn ormal postureStiffness of right hip, not elsewhere classified [address] [facility], [address], [place], [address], [place]. tel:[phone] [place], [place] [id number] [place] [address], [place], [place], [address], [place] tel:[phone] Lenny Pain in right hipOther abnormalities of gait and mobilityMuscle weakness (generalized)Abn ormal postureStiffness of right hip, not elsewhere classified 8 Maru Cancino. [address] [place] [address], [address], [place], [address], [place]. tel:[phone] [place], [place] [address] [place] [address], [place], [place], [address], [place] tel:[phone] [place] Pain in right hipOther abnormalities of gait and mobilityMuscle weakness (generalized)Abn ormal postureStiffness of right hip, not elsewhere classified 8 Maru Cancino. [address] [place] [address], [address], [place], [address], [place]. tel:[phone] [place] [address] [place] [address], [place], [place], [address], [place] tel:[phone] [place] Pain in right hipOther abnormalities of gait and mobilityMuscle weakness (generalized)Abn ormal postureStiffness of right hip, not elsewhere classified [address] [facility], [address], [place], [address], [place]. tel:[phone] [place], [place] [id number] [place] [address], [place], [place], [address], [place] tel:[phone] Lenny Pain in right hipOther abnormalities of gait and mobilityMuscle weakness (generalized)Abn ormal postureStiffness of right hip, not elsewhere classified [address] [facility], [address], [place], [address], [place]. tel:[phone] [facility], [place], [place], [address], [place] tel:[phone] [place] Pain in right hipOther abnormalities of gait and mobilityMuscle weakness (generalized)Abn ormal postureStiffness of right hip, not elsewhere classified [address] [facility], [address], [place], [address], [place]. tel:[phone] [facility], [place], [place], [address], [place] tel:[phone] Lenny Pain in right hipOther abnormalities of gait and mobilityMuscle weakness (generalized)Abn ormal postureStiffness of right hip, not elsewhere classified Maru Cancino. [address] [facility], [address], [place], [address], [place]. tel:[phone] [facility], [place], [place], [address], [place] tel:[phone] Lenny Pain in right hipOther abnormalities of gait and mobilityMuscle weakness (generalized)Abn ormal postureStiffness of right hip, not elsewhere classified Maru Cancino. [address] [facility], [address], [place], [address], [place]. tel:[phone] [facility], [place], [place], [address], [place] tel:[phone] Lenny Pain in right hipOther abnormalities of gait and mobilityMuscle weakness (generalized)Abn ormal postureStiffness of right hip, not elsewhere classified 8 Aury Oswald. [address] [place], [address], [place]. tel:[phone] [facility], [place], [place], [address], [place] tel:[phone] Lenny Pain in right hipOther abnormalities of gait and mobilityMuscle weakness (generalized)Abn ormal postureStiffness of right hip, not elsewhere classified 0 8 Schniers Darek. [address], [place], [address], [place]. tel:[phone] [facility], [place], [place], [address], [place] tel:[phone] Lenny Pain in right hipOther abnormalities of gait and mobilityMuscle weakness (generalized)Abn ormal postureStiffness of right hip, not elsewhere classified 0 8 Schniers Darek. [address] [place], [address], [place]. tel:[phone] [facility], [place], [place], [address], [place] tel:[phone] [place] Pain in right hipOther abnormalities of gait and mobilityMuscle weakness (generalized)Abn ormal postureStiffness of right hip, not elsewhere classified Apr-2 7 8 Schniers Darek. [address] [facility] [facility], [place], [address], [place]. tel:[phone] [facility], [place], [place], [address], [place] tel:[phone] Lenny Pain in right hipOther abnormalities of gait and mobilityMuscle weakness (generalized)Abn ormal postureStiffness of right hip, not elsewhere classified Apr-2 4- 8 Schniers Darek. [address] [facility] [address], [place], [address], [place]. tel:[phone] [facility], [place], [place], [address], [place] tel:[phone] Lenny Pain in right hipOther abnormalities of gait and mobilityMuscle weakness (generalized)Abn ormal postureStiffness of right hip, not elsewhere classified Apr-2 0-201 8 Schniers Darek. [address] [facility] [address], [place], [address], [place]. tel:[phone] [place] [address] [address], [place], [place], [address], [place] tel:[phone] Lenny No Information May-1 1-201 7 Schranck Barak. [address] [place] [address], [address], [place], [address], [place]. tel:[phone] [place] [address] [address], [place], [place], [address], [place] tel:[phone] Lenny No Information May-0 8-201 7 Schranck Barak. [address] [place] [address], [facility] [address], [place], [address], [place]. tel:[phone] [place] [address] [address], [place], [place], [address], tel:[phone] Lenny No Information May-0 5-201 7 Schranck Barak. [address] [place] [address], [address], [place], [address], [place]. tel:[phone] [place] [address] [address], [place], [place], [address], [place] tel:[phone] Lenny No Information May-0 1-201 7 Schranck Barak. [address] [place] [address], [facility] [address], [place], [address], [place]. tel:[phone] [place] [address] [address], [place], [place], [address], [place] tel:[phone] [place] No Information Apr-2 7-201 7 Schranck Barak. [address] [place] [address], [address], [place], [address], [place]. tel:[phone] [place] [address] [address], [place], [place], [address], [place] tel:[phone] [place] No Information Apr-2 4-201 7 Schranck Barak. [address] [place] [address], [address], [place], [address], [place]. tel:[phone] [place] [address] [address], [place], [place], [address], [place] tel:[phone] Lenny No Information Apr-1 7-201 7 Maru Cancino. [address] [place] [address], [address], [place], [place], [facility], [place]. tel:[phone] [place] [address] [address], [place], [place], [address], [place] tel:[phone] [place] No Information Apr-1 3-201 7 Maru Cancino. [address] [place] [address], [address], [place], [facility], [place]. tel:[phone] [place] [address] [address], [place], [place], [address], [place] tel:[phone] Lenny No Information Apr-1 1-201 7 Maru Cancino. [address] [place] [address], [address], [place], [facility], [place]. tel:[phone] [place] [address] [address], [place], [place], [address], [place] tel:[phone] [place] No Information Apr-0 6-201 7 Orlando Mueller. [address] [place] [address], [address], [place], [facility], [place]. tel:[phone] [place] [address] [address], [place], [place], [address], [place] tel:[phone] [place] No Information Apr-0 4-201 7 Maru Cancino. [address] [place] [address], [address], [place], [facility], [place]. tel:[phone] [place] [address] [address], [place], [place], [address], [place] tel:[phone] Lenny No Information Mar-3 1-201 7 Maru Cancino. [address] [place] [address], [address], [place], [address], [place]. tel:[phone] [place] [address] [address], [place], [place], [address], [place] tel:[phone] Lenny No Information Mar-2 9-201 7 Maru Barak. [address] [place] [address], [address], [place], [address], [place]. tel:[phone] [place] [address] [address], [place], [place], [address], [place] tel:[phone] [place] No Information Mar-2 3-201 7 Howardanikaanthony Cancino. [address] [place] [address], [address], [place], [address], [place]. tel:[phone] [place] [address], [address] [place] [address] [address], [place], [place], [address], [place] tel:[phone] [place] No Information Mar-2 0-201 7 Schnoelle Barak. [address] [place] [address], [address], [place], [facility], [place]. tel:[phone] [place] [address] [address], [place], [place], [address], [place] tel:[phone] Lenny No Information Mar-1 5-201 7 Maru Barak. [address] [place] [address], [address], [place], [address], [place]. tel:[phone] [place] [address] [address], [place], [place], [address], [place] tel:[phone] [place] No Information Mar-1 3-201 7 Maru Barak. [address] [place] [address], [address], [place], [address], [place]. tel:[phone] [place] [address] [address], [place], [place], [address], [place] tel:[phone] [place] No Information Mar-0 8-201 7 Orlando Mueller. [address] [place] [address], [address], [place], [facility], [place]. tel:[phone] [place] [address] [address], [place], [place], [address], [place] tel:[phone] [place] Stiffness of unspecified joint, not elsewhere classifiedMyalgi aLow back pain Mar-0 6-201 7 Alfaro-Velazquez Ervin. [address] [place] [address], [address], [place], [address], [place]. tel:[phone] [place] [address] [address], [place], [place], [address], [place] tel:[phone] Lenny No Information Dec-0 5-201 6 Alfaro-Velazquez Ervin. [address] [place] [address], [address], [place], [address], [place]. tel:[phone] [place] [address] [address], [place], [place], [address], [place] tel:[phone] Lenny No Information Nov-3 0-201 6 Alfaro-Velazquez Ervin. [address] [place] [address], [address], [place], [address], [place]. tel:[phone] [place] [address] [address], [place], [place], [address], [place] tel:[phone] Lenny No Information Nov-2 3-201 6 Alfaro-Velazquez Ervin. [address] [place] [address], [address], [place], [address], [place]. tel:[phone] [place] [address] [address], [place], [place], [address], [place] tel:[phone] [place] No Information Nov-1 6-201 6 Alfaro-Velazquez Ervin. [address] [place] [address], [address], [place], [address], [place]. tel:[phone] [place] [address] [address], [place], [place], [address], [place] tel:[phone] [place] No Information Nov-1 4-201 6 Alfaro-Velazquez Ervin. [address] [place] [address], [address], [place], [address], [place]. tel:[phone] [place] [address] [address], [place], [place], [address], [place] tel:[phone] Lenny No Information Nov-0 9-201 6 Alfaro-Velazquez Ervin. [address] [place] [address], [address], [place], [address], [place]. tel:[phone] [place] [address] [address], [place], [place], [address], [place] tel:[phone] Lenny No Information Nov-0 7-201 6 Alfaro-Velazquez Ervin. [address] [place] [address], [address], [place], [address], [place]. tel:[phone] [place] [address] [address], [place], [place], [address], [place] tel:[phone] [place] No Information Nov-0 2-201 6 Alfaro-Velazquez Ervin. [address] [place] [address], [address], [place], [address], [place]. tel:[phone] [place] [address] [address], [place], [place], [address], [place] tel:[phone] Lenny No Information Oct-3 1-201 6 Alfaro-Vealzquez Ervin. [address] [place] [address], [address], [place], [address], [place]. tel:[phone] [place] [address] [address], [place], [place], [address], [place] tel:[phone] [place] No Information Oct-2 6-201 6 Alfaro-Velazquez Ervin. [address] [place] [address], [address], [place], [address], [place]. tel:[phone] [place] [address] [address], [place], [place], [address], [place] tel:[phone] Lenny No Information Oct-2 4-201 6 Alfaro-Velazquez Ervin. [address] [place] [address], [address], [place], [address], [place]. tel:[phone] [place] [address] [address], [place], [place], [address], [place] tel:[phone] Lenny No Information Oct-1 9-201 6 Alfaro-Velazquez Ervin. [address] [place] [address], [address], [place], [address], [place]. tel:[phone] [place] [address] [address], [place], [place], [address], [place] tel:[phone] Lenny No Information Oct-1 2-201 6 Alfaro-Velazquez Ervin. [address] [place] [address], [address], [place], [address], [place]. tel:[phone] [place] [address] [address], [place], [place], [address], [place] tel:[phone] [place] No Information Oct-1 0-201 6 Alfaro-Velazquez Ervin. [address] [place] [address], [address], [place], [address], [place]. tel:[phone] [place] [address] [address], [place], [place], [address], [place] tel:[phone] [place] No Information Oct-0 5-201 6 Alfaro-Velazquez Ervin. [address] [place] [address], [address], [place], [address], [place]. tel:[phone] [place] [address] [address], [place], [place], [address], [place] tel:[phone] [place] No Information Oct-0 3-201 6 Alfaro-Velazquez Ervin. [address] [place] [address], [address], [place], [address], [place]. tel:[phone] [place] [address] [address], [place], [place], [address], [place] tel:[phone] Lenny No Information Sep-3 0-201 6 Alfaro-Velazquez Ervin. [address] [place] [address], [address], [place], [address], [place]. tel:[phone] [place] [address] [address], [place], [place], [address], [place] tel:[phone] Lenny No Information Sep-2 8-201 6 Alfaro-Velazquez Ervin. [address] [place] [address], [address], [place], [address], [place]. tel:[phone] [place] [address] [address], [place], [place], [address], [place] tel:[phone] [place] No Information Sep-2 1-201 6 Alfaro-Velazquez Ervin. [address] [place] [address], [address], [place], [address], [place]. tel:[phone] [place] [address] [address], [place], [place], [address], [place] tel:[phone] Lenny No Information Sep-1 9-201 6 Alfaro-Velazquez Ervin. [address] [place] [address], [address], [place], [address], [place]. tel:[phone] [place] [address] [address], [place], [place], [address], [place] tel:[phone] Lenny No Information Sep-1 4-201 6 Alfaro-Velazquez Ervin. [address] [place] [address], [address], [place], [address], [place]. tel:[phone] [place] [address] [address], [place], [place], [address], [place] tel:[phone] [place] No Information Sep-1 2-201 6 Alfaro-Velazquez Ervin. [address] [place] [address], [address], [place], [address], [place]. tel:[phone] [place] [address] [address], [place], [place], [address], [place] tel:[phone] Lenny No Information Sep-0 9-[address] [facility], [address], [place], [facility], [place]. tel:[phone], [id number], tel:[phone] [place] No Information [address] [facility], [address], [place], [facility], . tel:[phone] [address], [place], [place], [address], tel:[phone] Lenny Muscle weakness (generalized)Uns pecified abnormalities of gait and mobilityOther malaiseStiffness of right hip, not elsewhere classifiedOther chronic painPain in unspecified hip [address] [facility], [address], [place], [address], . tel:[phone] Family History Family Member Type Diagnosis Age At Onset No Information Payers Payer name Insurance type Covered democrat ID Authoriza tion(s) [facility] [employer] [id number] Medicaid OON Write Off CI 00 Social History Type Description Quantity Date Captured Comments Sex Female Smoking Status No Information Chief Complaint And Reason For Visit No Information Reason For Referral Reason For Referral No Information Plan Of Treatment Date Type Action Status Goal Tobacco cessation counseling completed Goal Tobacco Cessation Counseling completed History Of Present Illness Encounter Date Complaint History Of Prese nt Illness No Information Functional Status Date Functional Assessmen t No Information Instructions Date Instruction Additional Infor mation Giving encouragement to exercise Related to Overweight Giving encouragement to exercise Related to Overweight Giving encouragement to exercise Related to Overweight Giving encouragement to exercise Related to Overweight Assessments Type Assessment Date No Information Patient Care Teams Name Effective Dates (start - stop) Status Members No Information
--- OUTSIDE RECORDS SUMMARY | 2025-02-04 18:33 | XMS_ITS | Encounter Summary ---
Author Organization [facility] Address [address] [place] [address] Phone Care Team Providers Care Barista Name Role Phone Michael Arroyo APRN, CNP Primary Care Pr ovider Niurka Byrne MD Unavailable Ash PRO MD, Courtney Unavailable [phone] Reason for Visit * Reason Comments Medication Refill Encounter Details Date Type Department Care Team (Late st Contact Info) Description 01/12/2023 Refill [facility] - Family Medicine - [place] [address] [place] [address] Michael Arroyo APRN, LYN [address] [address] Medication Refill Social History Tobacco Use Types Packs/Day Years Used Date Smoking Tobacco: Former Cigarettes 1 25 0 08/31/1996 - 12/30/2019 Smokeless Tobacco: Never Comments:quit for 8 years Alcohol Use Standard Drinks/Week Comments No 0 (1 standard drink = 0.6 oz pur e alcohol) Education Answer Date Recorded What is the highest level of school you have completed or the highest degree you have received? Some college, no degree 08/24/2020 Sexually Active Control Partners Comments Not Currently Male Comments No Sex and Gender Information Value Date Recorded Sex Assigned at Not on file Legal Sex Female 7:35 PM CDT Gender Identity Not on file Sexual Orientation Not on file Occupation Industry Job Start Date Job End Date disability Not on file Not on file Not on file COVID-19 Exposure Response Date Recorded In the last 10 days, have yo u been in contact with someone who was confirmed or suspected to have Coronavirus/COVID-19? No / Unsure 12/18/2022 12:51 PM CDT documented as of this encounter Miscellaneous Notes * Telephone Encounter - Jelena Caballero RN - 01/14/2023 9:03 AM CDT Medication failed the protocol, provider to review and approve the medication order if appropriate. Requested Prescriptions Pending Prescriptions Disp Refills citalopram (CeleXA) 40 MG Tablet [Pharmacy Med Name: CITALOPRAM HBR 40 MG TABLET] 90 Tablet 1 Sig: TAKE 1 TABLET BY MOUTH EVERY DAY Citalopram (Celexa) (6 Month Refill Only) Protocol Failed - 01/12/2023 7:47 AM Failed - Has an encounter in the past 6 months with a depression, anxiety, adjustment disorder, OCD, or PTSD visit diagnosis Passed - No test in the past 12 months or most recent test was negative Passed - No active on record Passed - Citalopram dose is less than or equal to 40mg / day Passed - Visit with relevant provider in past 6 months or upcoming 90 days Recent Visits Date Type Provider Dept 12/04/22 Office Visit Michael Arroyo APRN, CNP [facility] 11/06/22 Office Visit Michael Arroyo APRN, CNP [facility] 10/08/22 Office Visit Wilber Bobby MD [facility] [place] recent visits within past 182 days and meeting all other requirements Future Appointments Date Type Provider Dept 03/08/23 Appointment Michael Arroyo APRN, [facility] future appointments within next 90 days and meeting all other requirements Passed - Patient has established therapy with Citalopram for at least 6 months documented in this encounter Plan of Treatment Not on file documented as of this encounter Visit Diagnoses Not on filedocumented in this encounter Care Teams Barista Relationship Specialty Start Date End Date Michael Arroyo APRN, LYN [address] [facility] [address] [place] [address] PCP - General Certified Nurse Practitioner 03/02/20 Niurka Byrne MD [address] [facility] [address] [place] [address] Consulting Physician Endocrinology 09/13/20 Marium Aleman III, MD [address] [place] [address] Consulting Physician Urology 02/25/23 documented as of this encounter
--- OUTSIDE RECORDS SUMMARY | 2025-02-04 18:33 | XMS_ITS | Clinical Summary ---
Author Organization [facility] Address [address] [place] [address] Care Team Providers Care Laundry Aid Name Role Phone Michael Arroyo NP Primary Care Provider Imer Scott MD Unavailable [phone] Allergies Active Allergy Reactions Criticality Noted Date Comments Latex Hives Medium 06/20/2024 Medications multivit-min/iron/ folic acid/K (BARIATRIC MULTIVITAMINS ORAL) Take 1 each by mouth daily Active calcium citrate (CALCITRATE) 950 mg (200 mg of elemental calcium) tablet Take 1 tablet (950 mg total) by mouth daily Active naloxone (NARCAN) 4 mg/actuation spray,non-aerosol Administer 1 spray into affected nostril(s) as needed for opioid reversal or respiratory depression Call 911. Administer a single spray in one nostril. Repeat every 3 minutes as needed if no or minimal response. 1 each 07/09/20 22 Active amoxicillin (AMOXIL) 500 mg tablet/capsule Take 4 tablets by mouth 1 hour prior to dental procedure. 4 tablet/caps ule 1 05/22/20 23 Active citalopram (CeleXA) 40 mg tablet Take 1 tablet (40 mg total) by mouth daily 10/01/19 24 Active pediatric multivitamin-iron tablet,chewable Take by mouth Active cyanocobalamin (Vitamin B-12) 1,000 mcg tabletIndications: Prevention of Vitamin B12 Deficiency Take 1 tablet (1,000 mcg total) by mouth daily Active ondansetron ODT (ZOFRAN-ODT) 8 mg disintegrating tabletIndications: Prevention of Post-Operative Nausea and Vomiting Take 1 tablet (8 mg total) by mouth every 8 (eight) hours as needed for nausea or vomiting 12 tablet 1 04/21/20 24 Active HYDROcodone-acetam inophen (NORCO) 5-325 mg per tabletIndications: Pain Take 1 tablet by mouth every 6 (six) hours as needed for pain 20 tablet 05/15/20 24 Active Ozempic 0.25 mg or 0.5 mg (2 mg/3 mL) pen injector injection INJECT 0.25 MG SUBCUTANEOUSLY WEEKLY FOR 4 WEEKS AND THEN 0.5 MG SUBCUTANEOUSLY WEEKLY FOR 4 WEEKS 05/12/[address] (NexIUM) 40 mg capsule Take 1 capsule (40 mg total) by mouth daily before breakfast 30 capsule 06/20/20 24 025 Active benzonatate (TESSALON) 100 mg capsuleIndications :Cough Take 1 capsule (100 mg total) by mouth every 8 (eight) hours 21 capsule 06/20/20 24 Active Active Problems Problem Noted Date Diagnosed Date B12 deficiency 04/10/2024 Excessive weight loss 12/03/2023 Localized adiposity 12/03/2023 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 023 Primary osteoarthritis of fi rst carpometacarpal joint of left hand 05/06/2023 Arthritis of carpometacarpal (CMC) joint of righ t thumb 11/13/2022 Overview (11/13/2022): Added automatically from request for surgery [id number] Irregular periods 11/12/2022 Pre-eclampsia 11/12/2022 Arthritis of carpometacarpal (CMC) joint of left thumb 11/12/2022 Aftercare following right hip joint replacement surgery 11/01/2022 Aftercare following left hip joint replacement s urgery 07/16/2022 Hyperuricemia 05/24/2021 Microalbuminuria 09/12/2020 Hemorrhoids 08/31/2020 Hepatic steatosis 06/24/2020 Elevated liver enzymes 06/09/2020 Colon polyp 03/02/2020 Gestational diabetes mellitus 03/02/2020 OAB (overactive bladder) 03/02/2020 Mixed emotional features as adjustment reaction 12/01/2018 Urinary incontinence 12/01/2018 Halitosis 10/31/2017 Laryngopharyngeal reflux 10/31/2017 PNAR (perennial non-allergic rhinitis) 8 Periodic limb movements of sleep 10/21/2017 Bite of nonvenomous arthropod 06/03/2017 Vulvovaginitis associated with another disorder 06/03/2017 Hypercholesteremia 07/05/2016 Vitamin D deficiency 04/25/2016 Radiculopathy of lumbosacral region 03/27/2016 Morbid obesity 02/24/2016 Pain in joint, pelvic region and thigh 6 Tobacco use 02/15/2016 Adjustment disorder with mixed anxiety and depre ssed mood 10/24/2015 Backache 10/24/2015 Bursitis of hip 10/24/2015 Simple chronic bronchitis 10/24/2015 Type 2 diabetes mellitus without complication Hypertension 07/07/2014 Obstructive sleep apnea syndrome 11/15/2011 Overview (11/29/2016): Obstructive sleep apnea syndrome Morbid obesity with body mass index (BMI) of 40. 0 to 49.9 11/15/2011 Overview (11/29/2016): Morbid obesity Hypersomnia with sleep apnea 11/15/2011 Overview (11/29/2016): Hypersomnia Resolved Problems Problem Noted Date Diagnosed Date Resolved Date Primary osteoarthritis of left hip 06/18/2022 07/16/2022 Overview (06/18/2022): Added automatically from request for surgery [id number] Primary osteoarthritis of right hip 05/16/2022 11/01/2022 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 07/01/2019 07/07/2014 07/01/2019 Encounters Date Type Department Care Team Description 02/04/2025 Telephone [facility] Medical Group Orthopedics and Sports Medicine [address] [facility] [place] [facility] [address] [place] [phone] Jennifer Munguia MA from Last 3 Months Immunizations Immunization Administration Dates Next Due Influenza, Quadrivalent, Spl it, Preservative Free, Intramuscular 09/23/2014 Tdap 10/07/2014 Surgical History Surgery Date Site/Laterality Comments CHOLECYSTECTOMY gall bladder removed OTHER SURGICAL HISTORY tendon repair in right hand GASTRIC BYPASS 12/13/2021 SECTION 3 total TONSILLECTOMY ESSURE TUBAL LIGATION Essure implant TOTAL HIP ARTHROPLASTY 06/26/2022 - 07/25/2022 Left CARPAL TUNNEL RELEASE Bilateral JOINT REPLACEMENT 08/26/2022 - 09/25/2022 Right total hip HAND ARTHROPLASTY 05/09/2023 Left 1st CMC arthroplasty w/ ligament reconstruction Medical History Medical History Date Comments Calculus of kidney 02/2023 kidney stones --no symptoms currently Tension headache Headache, tensi on Hyperlipidemia Hyperlipidemia Diabetes mellitus (HCC) Diabetes --history of --no meds since 11/2021 Hypertension Hypertension his tory of --no meds since 2012 Type 2 diabetes mellitus (HCC) D iabetes type 2; Comments: JIGAR 12/30/2014 - Arthritis Arthritis; Comme nts: JIGAR 12/30/2014 - Rhesus isoimmunization affec ting 10/21/2014 07/07/2014 Sleep apnea does use cpap Chronic bronchitis (HCC) hx of - -last had 2017 Anemia Bipolar disorder (HCC) Depression Anxiety Lung disease COPD Lactose intolerance Anesthesia complication Pt had s evere hypertension immediate post op period after gastric bypass PONV (postoperative nausea a nd vomiting) Family History Medical History Relation Name Comments Diabetes Father Diabetes mellit us; Hypertension Father Hypertension; Migraines Father Migraine; Hypertension Mother Hypertension; Cancer Other 1 Cancer, unknown ; Diabetes type II Other 2 Diabetes me llitus type 2; Arthritis Other 3 Arthritis; Alcohol abuse Other 4 Alcoholism; Heart failure Other 5 Congestive hea rt failure; Hypertension Other 6 Hypertension; Mental illness Other 7 Mental illnes s; Stroke Other 8 Stroke; Relation Name Status Comments Father Mother Other 1 Other 2 Other 3 Other 4 Other 5 Other 6 Other 7 Other 8 Social History Tobacco Use Types Packs/Day Years Used Date Smoking Tobacco: Former Cigarettes 1 15 0 10/27/2004 - 10/28/2019 Smokeless Tobacco: Never Tobacco Cessation:Counseling Given: Not Answered Alcohol Use Standard Drinks/Week Comments No 0 (1 standard drink = 0.6 oz pur e alcohol) AUDIT-C Answer Date Recorded Frequency of Alcohol Consumption Not on file 04/14/2024 Q2: How many drinks containi ng alcohol do you have on a typical day when you are drinking? Patient does not drink Frequency of Binge Drinking Not on file 03/27 PHQ-2 Answer Date Recorded PHQ-2 Total Score (If total score is 3 or more points, staff should administer the PHQ-9) 0 10/17/2022 Personal Safety Answer Date Recorded Have you ever been in or are you currently in a harmful physical or emotional relationship or is someone making you feel afraid or unsafe? Denies 06/20/2024 Comments No Sex and Gender Information Value Date Recorded Sex Assigned at Not on file Legal Sex Female 1:23 AM MUSHROOM CULTIVATOR Gender Identity Not on file Sexual Orientation Not on file Obstetrics History Last Filed Vital Signs Vital Sign Reading Time Taken Comments Blood Pressure 154/89 06/20/2024 2:35 PM CDT Pulse 82 06/20/2024 2:35 PM CDT Temperature 36.6 C (97.8 F) 06/20/2024 12:03 PM CDT Respiratory Rate 17 06/20/2024 2:35 PM CDT Oxygen Saturation 99% 06/20/2024 2:35 PM CDT Inhaled Oxygen Concentration - - Weight 78.5 kg (173 lb) 07/22/2024 12:35 PM MUSHROOM CULTIVATOR Height 167.6 cm (5' 6) 06/20/2024 12:03 PM CDT Body Mass Index 27.92 06/20/2024 12:03 PM CDT Plan of Treatment Health Maintenance Due Date Last Done Comments Albumin Creatinine Ratio, Urine 1981 Cervical Cancer Screening 1981 Hepatitis C Screening 1981 Dilated Eye Exam 1981 Foot Exam 1981 Varicella Vaccines (1 of 2 - 13+ 2-dose series) 1994 Hepatitis B Screening 1999 Regular Well Visit/Exam 18-64 1999 Pneumococcal vaccine <65 (1 of 2 - PCV) 2000 Lipid Panel 09/20/2017 09/20/2016, 01/24, 07/26/2015, Additional history exists Hemoglobin A1C 04/11/2023 10/12/2022, 05/27, 11/14/2021 Depression Screening 09/26/2023 09/26/2022 DTaP/Tdap/Td Vaccine (7 - Td or Tdap) 10/07/2024 10/07/2014, 06/05/1996, 01/15/1986, Additional history exists Influenza Vaccine (Season Ended) 2025 09/23/2014 eGFR 06/20/2025 06/20/2024, 03/26, 10/22/2023, Additional history exists Breast Cancer Screening-Mammogram 07/06/2025 07/06/2024, 07/06/2024, 07/04/2023, Additional history exists HPV Vaccines Aged Out No longer eligi ble based on patient's age to complete this topic Medical Devices Implanted Type Area Global Recruiter Device Identifier Shelf Expiration Date Model / Serial / Lot [employer]uy [employer] [place] 52mm Sector Hip Shell Acetabular Gription Sterile Latex Free [id number] - [id number] Implanted:Qty: 1 on 07/04/2022 by Imer Scott MD at [facility] Left: Hip [employer] 05/25/2032 [id number] / / [id number] [employer] [place] 52mm 36mm Hip Neutral Liner Acetabular Altrx Sterile Latex Free [id number] - [id number] Implanted:Qty: 1 on 07/04/2022 by Imer Scott MD at [facility] Left: Hip [employer] 05/25/2027 [id number] / / [id number] [employer] Actis 105mm Collar Hip 5 High Offset Stem Femoral [id number] - [id number] Implanted:Qty: 1 on 07/04/2022 by Imer Scott MD at [facility] Left: Hip [employer] 02/23/2032 [id number] / / [id number] [employer] Articul/Davie 36mm Cementless Hip +8.5mm /14 Taper Head Femoral Latex Free 1365-36-330 - [id number] Implanted:Qty: 1 on 07/04/2022 by Imer Scott MD at [facility] Left: Hip [employer] 04/25/2027 1365-36-330 / / [id number] [employer] [place] 54mm Sector Hip Shell Acetabular Gription Sterile Latex Free [id number] - [id number] Implanted:Qty: 1 on 10/17/2022 by Imer Scott MD at [facility] Right: Hip [employer] [id number] 08/25/2032 [id number] / / [id number] [employer] [place] 54mm 36mm Hip Neutral Liner Acetabular Altrx Sterile Latex Free [id number] - [id number] Implanted:Qty: 1 on 10/17/2022 by Imer Scott MD at [facility] Right: Hip [employer] [id number] 05/25/2027 [id number] / / [id number] [employer] [place] 6.5mm 35mm Acetabular Cancellous Screw Bone Sterile 1217-35-500 - [id number] Implanted:Qty: 1 on 10/17/2022 by Imer Scott MD at [facility] Right: Hip [employer] [id number] 03/25/2032 1217-35-500 / / [id number] [employer] Actis 105mm Collar Hip 5 High Offset Stem Femoral [id number] - [id number] Implanted:Qty: 1 on 10/17/2022 by Imer Scott MD at [facility] Right: Hip [employer] [id number] 06/25/2032 [id number] / / [id number] [employer] Articul/Davie 36mm Cementless Hip +5mm 08/08 Taper Head Femoral Latex Free [id number] - [id number] Implanted:Qty: 1 on 10/17/2022 by Imer Scott MD at [facility] Right: Hip [employer] [id number] 08/25/2027 [id number] / / [id number] [employer] Suture [place] Knotless Fibertak Resorbable Zg1347-Ue - [id number] Implanted:Qty: 1 on 05/09/2023 by Wei Moran MD at [facility] Left: Metacarpal [employer] [id number] 01/24/2028 [id number] / / [id number] [facility] Niko Sealant Fibrin Patch [place] Set Frozen Prefilled Syringe Artiss 10ml [id number] - [id number] - [id number] Implanted:Qty: 1 on 04/21/2024 by Jyoti Parsons MD at [facility] N/A: Abdomen Gravity R[employer]D 09/25/2025 [id number] / [id number] / [id number] Procedures Procedure Name Priority Date/Time Associated Diagnosis Comments EGFR STAT 06/20/2024 12:45 PM CDT HEMOGLOBIN A1C Routine 10/12/2022 12:10 PM MUSHROOM CULTIVATOR Pre-op testing SERUM LIPID PANEL Routine 09/20/2016 1:5 6 PM MUSHROOM CULTIVATOR from Last 3 Months or Most Recently Relevant to Health Maintenance Results * eGFR (06/20/2024 12:45 PM CDT) eGFR >90 >=60 mL/min/1. 73 m2 Comment: Interpretive Data Reference Interval Normal >/= 90 mL/min/1.73m2 Mildly decreased* 60 - 89 mL/min/1.73m2 Mildly to moderately decreased 45 - 59 mL/min/1.73m2 Moderately to severely decreased 30 - 44 mL/min/1.73m2 Severely decreased 15 - 29 mL/min/1.73m2 Kidney Failure < 15 mL/min/1.73m2 *Relative to young adult level Estimated glomerular filtration rate is determined by the 2020 CKD-EPI equation recommended by the National Kidney Foundation (A Unifying Approach to GFR Estimation: Recommendations of the NKF-ASK Task Force on Reassessing the Inclusion of Race in Diagnosing Kidney Disease, JASN 2020). The CKD-EPI equation should not be used for patients with unstable renal function and has not been validated in children and those over 70. Current interpretive data was last reviewed 2021. Blood 06/20/2024 12:4 5 PM CDT 06/20/2024 12:47 PM CDT us Chuck Morris MD LAB BLOOD ORDERABLES Final Res ult [facility] ([place]) [address] [facility] [place] [address] * Hemoglobin A1c (10/12/2022 12:10 PM MUSHROOM CULTIVATOR) Hgb A1C 4.7 4.0 - 5.6 % [facility] ([place]) Estimated Average Glucose 88 mg/dL [facility] ([place]) Comment: The ADA recommends reporting an estimated Average Glucose (eAG) with all Hemoglobin A1c results using the equation derived from a study of 507 normal and diabetic adults. Minority populations were underrepresented and children were not included. (Diabetes Care 31:9212-7667, 2008). The eAG is not equivalent to a fasting glucose. Blood 10/12/2022 12:1 0 PM MUSHROOM CULTIVATOR 10/12/2022 12:41 PM MUSHROOM CULTIVATOR us Imer Scott MD LAB BLOOD ORDERABLES Fin al Result [facility] ([place]) [address] [place] [address] * Serum lipid panel (09/20/2016 1:56 PM MUSHROOM CULTIVATOR) Pathologist [facility] Cholesterol 152 40 - 199 mg/dl CDR HISTORICAL RESULTS Comment: Interpretive Data Desirable: Less than 200 mg/dl Borderline High: 200 - 239 mg/dl High: Greater than 239 mg/dl Current interpretive data was last revised on 2014. Triglycerides 94 <=150 mg/dl CDR HISTORICAL RESULTS Comment: Interpretive Data Normal: Less than 150 mg/dl Borderline high: 105-199 mg/dl High: 200-499 mg/dl Very high: Greater than or equal to 500 mg/dl Current interpretive data was last revised on 2014. HDL 43 40 - 60 mg/dl CDR HISTORICAL RESULTS Comment: Interpretive Data Low HDL Cholesterol: Less than 40 mg/dl Normal HDL Cholesterol: 40-60 mg/dl High HDL Cholesterol: Greater than 60 mg/dl Current interpretive data was last revised on 2014. LDL 90 mg/dl CDR HISTOR ICAL RESULTS Comment: Interpretive Data Optimal Less than 100 mg/dL Near optimal/Above optimal 100 - 129 mg/dL Borderline high 130 - 159 mg/dL High 160 - 189 mg/dL Very high Greater than or = 190 mg/dL LDL values are not valid when the total Triglyceride is greater than 300 mg/dL. Current interpretive data was last revised on 2014. Non-HDL cholesterol, calculated 109 mg/dl CDR HISTORICAL RESULTS Comment: Interpretive Data Optimal Less than 130 mg/dL Low Risk 130 - 159 mg/dL Moderate Risk 160 - 189 mg/dL High Risk Greater than or equal to 190 mg/dL Current interpretive data was last revised on 2014. Serum 09/20/2016 1:56 PM MUSHROOM CULTIVATOR us Historical Provider LAB BLOOD ORDERABLES Daija dasilva Result CDR HISTORICAL RESULTS from Last 3 Months or Most Recently Relevant to Health Maintenance Insurance IDPA [facility] MEDICARE ADVANTAGE [facility] MEDIC[facility] ADVANTAGE [facility] MEDIC[facility] ADVANTAGE IDPA Advance Directives For more information, please contact: [phone] * Full Code (Latest Code Status on File) Date Activated Date Inactivated Comments 10/17/2022 2:55 PM 10/19/2022 2:53 PM * Full Code Date Activated Date Inactivated Comments 07/04/2022 3:02 PM 07/05/2022 4:42 PM Care Teams Laundry Aid Relationship Specialty Start Date End Date Michael Arroyo NP [facility] JOVITA HAYES [facility] [address] [place] [address] PCP - General Nurse Practitioner 05/23/22 Imer Scott MD [address] [facility] [address] [place] [address] Surgeon Orthopedic Surgery 07/05/22
--- OUTSIDE RECORDS SUMMARY | 2025-02-04 18:33 | XMS_ITS | Encounter Summary ---
Author Organization [facility] Healthcare Address [address] [place] [address] Care Team Providers Care Regional Recruiter Name Role Phone Michael Arroyo NP Primary Care Provider Imer Scott MD Unavailable [phone] Encounter Details Date Type Department Care Team (Late st Contact Info) Description 02/04/2025 Telephone [facility] Medical Group Orthopedics and Sports Medicine [address] [facility] [address] [address] Jennifer Munguia MA Social History Tobacco Use Types Packs/Day Years Used Date Smoking Tobacco: Former Cigarettes 1 15 0 10/27/2004 - 10/28/2019 Smokeless Tobacco: Never Alcohol Use Standard Drinks/Week Comments No 0 [...] on file Legal Sex Female 1:23 AM SENIOR MOBILE SOLUTIONS ARCHITECT Gender Identity Not on file Sexual Orientation Not on file documented as of this encounter Miscellaneous Notes * Telephone Encounter - Jennifer Munguia MA - 02/04/2025 4:23 PM CDT Patient called and states she fell and injured her knee. She is a s/p JEAN both sides. I advised at this time, I do not have an immediate opening. I advised to call her PCP, go to an urgent care or ER. She stated understanding and agreed with plan. She states she walks a lot at work and just wants to make sure everything is ok. Thank you documented in this encounter Plan of Treatment Not on file documented as of this encounter Visit Diagnoses Not on filedocumented in this encounter Care Teams Regional Recruiter Relationship Specialty Start Date End Date Michael Arroyo NP 2 COUNT INCLUDES THE [facility] JOVITA HAYES [address] [address] PCP - General Nurse Practitioner 05/23/22 Imer Scott MD [address] [facility] [address], [place] [address] Surgeon Orthopedic Surgery 07/05/22 documented as of this encounter
--- OUTSIDE RECORDS SUMMARY | 2025-02-04 18:33 | XMS_ITS | Encounter Summary ---
Author Organization [facility] Address [address] [place] [address] Phone Care Team Providers Care Manager Purchasing Name Role Phone Michael Arroyo APRN, CNP Primary Care Pr ovider Niurka Byrne MD Unavailable Ash PRO MD, Courtney Unavailable [phone] Reason for Visit * Reason Comments Medication Refill Encounter Details Date Type Department Care Team (Late st Contact Info) Description 02/02/2021 Refill [facility] - Family Medicine - [place] [address] [place] [phone] Michael Arroyo APRN, LYN [address] [address] Medication Refill Social History Tobacco Use Types [...] Exposure Response Date Recorded In the last month, have you been in contact with someone who was confirmed or suspected to have Coronavirus / COVID-19? No / Unsure 01/11/2021 1:14 PM CDT documented as of this encounter Miscellaneous Notes * Telephone Encounter - Ada Jelena L, RN - 02/03/2021 10:04 AM CDT Medication failed the protocol, provider to review and approve the medication order if appropriate. Requested Prescriptions Pending Prescriptions Disp Refills ergocalciferol (VITAMIN D) 52378 UNIT Capsule [Pharmacy Med Name: VITAMIN D2 1.25MG(50,000 UNIT)] 4Capsule 2 Sig: TAKE 1 CAPSULE BY MOUTH ONE TIME PER WEEK healthfinch Off-Protocol Failed - 02/02/2021 1:32 PM Failed - Medication not assigned to a protocol, review manually. Passed - Valid encounter within last 12 months Past Office Visits Recent Outpatient Visits 3 weeks ago Carpal tunnel syndrome of left wrist [facility] Family [facility] - Michael Philip APN, WOODWIND INSTRUMENTS INSPECTOR 2 months ago Primary osteoarthritis of both hips [facility] - Michael Philip APN, WOODWIND INSTRUMENTS INSPECTOR 3 months ago Obstructive sleep apnea syndrome [facility] - Michael Philip APN, WOODWIND INSTRUMENTS INSPECTOR 5 months ago Morbid (severe) obesity due to excess calories (HCC) [facility] - Michael Philip APN, WOODWIND INSTRUMENTS INSPECTOR 11 months ago Essential hypertension [facility] - Michael Philip APN, WOODWIND INSTRUMENTS INSPECTOR Upcoming Appointments Future Appointments In 2 months Niurka Byrne MD [facility] Endocrinology - [place] [facility] LICENSED MENTAL HEALTH COUNSELOR - Recent and Past Visits Recent Visits Date Type Provider Dept 01/11/21 Telemedicine Michael Arroyo APN, CNP [facility] [place] 11/08/20 Office Visit Michael Arroyo APN, CNP [facility] 10/20/20 Telemedicine Michael Arroyo APN, CNP [facility] [place] 08/25/20 Telemedicine [facility]o APN, [facility] 03/02/20 Office Visit Michael Arroyo APN, LYN [facility] Showing recent visits within past 460 days with a meds authorizing provider and meeting all other requirements Future Appointments No visits were found meeting these conditions. Showing future appointments within next 90 days with a meds authorizing provider and meeting all other requirements documented in this encounter Plan of Treatment Not on file documented as of this encounter Visit Diagnoses Diagnosis Vitamin D deficiency Unspecified vitamin D deficiency documented in this encounter Care Teams Manager Purchasing Relationship Specialty Start Date End Date Michael Arroyo APRN, CNP [address] [facility] [address] [place] [address] PCP - General Certified Nurse Practitioner 03/02/20 Niurka Byrne MD [address]2 [facility] [address] [place] [address] Consulting Physician Endocrinology 09/13/20 Marium Aleman III, MD [address] [place] [address] Consulting Physician Urology 02/25/23 documented as of this encounter
--- OUTSIDE RECORDS SUMMARY | 2025-02-04 18:33 | XMS_ITS | Referral Summary ---
Author Organization [facility] Address [address] [place] [address] Care Team Providers Care Records And Tape Recordings Engineer Name Role Phone Michael Arroyo NP Primary Care Provider Imer Scott MD Unavailable [phone] Encounters Date Type Department Care Team Description 02/04/2025 Telephone [facility] Orthopedics and Sports Medicine [address] [facility] [address] [place] [address] Jennifer Munguia MA from Last 3 Months Allergies Active Allergy Reactions Criticality Noted Date [...] (11/13/2022): Added automatically from request for surgery [id number] Irregular periods 11/12/2022 Pre-eclampsia 11/12/2022 Arthritis of [...] (06/18/2022): Added automatically from request for surgery [id number] Primary osteoarthritis of right hip 05/16/2022 11/01/2022 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 07/01/2019 07/07/2014 07/01/2019 Immunizations Immunization Administration Dates Next Due Influenza, Quadrivalent, Spl it, Preservative Free, Intramuscular 09/23/2014 Tdap 10/07/2014 Social History Tobacco Use Types Packs/Day Years [...] on file Legal Sex Female 1:23 AM AUCTIONEER TOBACCO Gender Identity Not on file Sexual Orientation Not on file Last Filed Vital Signs Vital Sign Reading Time Taken Comments Blood Pressure 154/89 06/20/2024 2:35 PM CDT Pulse 82 06/20/2024 2:35 PM CDT Temperature 36.6 C (97.8 F) 06/20/2024 12:03 PM CDT Respiratory Rate 17 06/20/2024 2:35 PM CDT Oxygen Saturation 99% 06/20/2024 2:35 PM CDT Inhaled Oxygen Concentration - - Weight 78.5 kg (173 lb) 07/22/2024 12:35 PM AUCTIONEER TOBACCO Height 167.6 cm (5' 6) 06/20/2024 12:03 PM CDT Body Mass Index 27.92 06/20/2024 12:03 PM CDT Plan of Treatment Not on file Medical Devices Implanted Type Area Costume Design Teacher Device Identifier Shelf Expiration Date Model / Serial / Lot Depuy [employer] Mosier 52mm Sector Hip Shell Acetabular Gription Sterile Latex Free [id number] - [id number] Implanted:Qty: 1 on 07/04/2022 by Imer Scott MD at [facility] Left: Hip [employer] 05/25/2032 [id number] / / [id number] [employer] Mosier 52mm 36mm Hip Neutral Liner Acetabular Altrx Sterile Latex Free [id number] - [id number] Implanted:Qty: 1 on 07/04/2022 by Imer Scott MD at [facility] Left: Hip [employer] 05/25/2027 [id number] / / [id number] [employer] Actis 105mm Collar Hip 5 High Offset Stem Femoral [id number] - [id number] Implanted:Qty: 1 on 07/04/2022 by Imer Scott MD at [facility] Left: Hip [employer] 02/23/2032 [id number] / / [id number] [employer] Articul/Davie 36mm Cementless Hip +8.5mm /14 Taper Head Femoral Latex Free 1365-36-330 - [id number] Implanted:Qty: 1 on 07/04/2022 by Imer Scott MD at [facility] Left: Hip [employer] 04/25/2027 1365-36-330 / / [id number] [employer] Mosier 54mm Sector Hip Shell Acetabular Gription Sterile Latex Free [id number] - [id number] Implanted:Qty: 1 on 10/17/2022 by Imer Scott MD at [facility] Right: Hip [employer] [id number] 08/25/2032 [id number] / / [id number] Dep[employer] Mosier 54mm 36mm Hip Neutral Liner Acetabular Altrx Sterile Latex Free [id number] - [id number] Implanted:Qty: 1 on 10/17/2022 by Imer Scott MD at [facility] Right: Hip [employer] [id number] 05/25/2027 [id number] / / [id number] [employer] Mosier 6.5mm 35mm Acetabular Cancellous Screw Bone Sterile 1217-35-500 - [id number] Implanted:Qty: 1 on 10/17/2022 by Imer Scott MD at [facility] Right: Hip [employer] [id number] 03/25/2032 1217-35-500 / / [id number] Dep[employer] Actis 105mm Collar Hip 5 High Offset Stem Femoral [id number] - [id number] Implanted:Qty: 1 on 10/17/2022 by Imer Soctt MD at [facility] Right: Hip [employer] [id number] 06/25/2032 [id number] / / [id number] [employer] Articul/Davie 36mm Cementless Hip +5mm /14 Taper Head Femoral Latex Free [id number] - [id number] Implanted:Qty: 1 on 10/17/2022 by Imer Scott MD at [facility] Right: Hip [employer] [id number] 08/25/2027 [id number] / / [id number] [employer] Suture [place] Knotless Fibertak Resorbable Fd6581-Be - [id number] Implanted:Qty: 1 on 05/09/2023 by Wei Moran MD at [facility] Left: Metacarpal [employer] [id number] 01/24/2028 [id number] / / [id number] [facility] Niok Sealant Fibrin Patch [place] Set Frozen Prefilled Syringe Artiss 10ml [id number] - [id number] - [id number] Implanted:Qty: 1 on 04/21/2024 by Jyoti Parsons MD at [facility] N/A: Abdomen [facility] Niko 09/25/2025 [id number] / [id number] / [id number] Procedures Procedure Name Priority Date/Time Associated Diagnosis Comments EGFR STAT 06/20/2024 12:45 PM CDT HEMOGLOBIN A1C Routine 10/12/2022 12:10 PM AUCTIONEER TOBACCO Pre-op testing SERUM LIPID PANEL Routine 09/20/2016 1:5 6 PM AUCTIONEER TOBACCO from Last 3 Months or Most Recently [...] MD LAB BLOOD ORDERABLES Final Res ult [facility]) [address] [facility] Department of Laboratories [place], [place] [id number] * Hemoglobin A1c (10/12/2022 12:10 PM AUCTIONEER TOBACCO) Hgb A1C 4.7 4.0 - 5.6 % [facility]) Estimated Average Glucose 88 mg/dL [facility]) Comment: The ADA recommends reporting an estimated Average Glucose (eAG) with all Hemoglobin A1c results using the equation derived from a study of 507 normal and diabetic adults. Minority populations were underrepresented and children were not included. (Diabetes Care 31:3887-7105, 2008). The eAG is not equivalent to a fasting glucose. Blood 10/12/2022 12:1 0 PM AUCTIONEER TOBACCO 10/12/2022 12:41 PM AUCTIONEER TOBACCO us Imer Scott MD LAB BLOOD ORDERABLES Fin al Result [facility]IME [facility]) [address] [facility] [place] [address] * Serum lipid panel (09/20/2016 1:56 PM AUCTIONEER TOBACCO) Cholesterol 152 40 - 199 mg/dl CDR [...] revised on 2014. Serum 09/20/2016 1:56 PM AUCTIONEER TOBACCO us Historical Provider LAB BLOOD ORDERABLES Daija dasilva Result CDR HISTORICAL RESULTS from Last 3 Months or Most Recently Relevant to Health Maintenance Insurance IDPA [facility] MEDICARE ADVANTAGE [facility] MEDICARE ADVANTAGE [facility] MEDICARE ADVANTAGE IDPA Advance Directives For more information, please contact: [phone] * Full Code (Latest Code Status on File) Date Activated Date Inactivated Comments 10/17/2022 2:55 PM 10/19/2022 2:53 PM * Full Code Date Activated Date Inactivated Comments 07/04/2022 3:02 PM 07/05/2022 4:42 PM Care Teams Records And Tape Recordings Engineer Relationship Specialty Start Date End Date Michael Arroyo NP 2 [facility] [address] [place] [address] PCP - General Nurse Practitioner 05/23/22 Imer Scott MD 4 [facility] [address] [place] [address] Surgeon Orthopedic Surgery 07/05/22
--- OUTSIDE RECORDS SUMMARY | 2025-02-04 18:33 | XMS_ITS | Encounter Summary ---
Author Organization [facility] Address [address] [place] [address] Phone Care Team Providers Care Wellness Nurse Rn Name Role Phone Michael Arroyo APRN, CNP Primary Care Pr ovider Niurka Byrne MD Unavailable Ash PRO MD, Courtney Unavailable Reason for Visit * Reason Comments Medication Refill Encounter Details Date Type Department Care Team (Late st Contact Info) Description 10/27/2020 Refill [facility] Medicine - [place] [address] [place] [phone] Michael Arroyo APRN, LYN [address] [address] Medication Refill Social History Tobacco Use Types [...] have Coronavirus / COVID-19? No / Unsure 10/20/2020 2:23 PM SUPERVISOR LOCOMOTIVE documented as of this encounter Miscellaneous Notes * Telephone Encounter - Lexie Jo RN - 10/27/2020 11:42 AM CST Sent to PCP RVISOR LOCOMOTIVE * Telephone Encounter - Lexie Jo RN - 10/27/2020 11:41 AM CST Per nursing clinical judgement, provider to review and approve the medication(s) order(s) if appropriate. Last OV 10/20/20, F/U None, Last Rx 09/12/20 Lexie ESPINOZA Requested Prescriptions Pending Prescriptions Disp Refills ergocalciferol (VITAMIN D) 94193 UNIT Capsule [Pharmacy Med Name: VITAMIN D2 1.25MG(50,000 UNIT)] 4Capsule 2 Sig: TAKE 1 CAPSULE BY MOUTH ONE TIME PER WEEK Off-Protocol Failed - 10/27/2020 11:30 AM Failed - Medication not assigned to a protocol, review manually. Passed - Valid encounter within last 12 months Past Office Visits Recent Outpatient Visits 1 week ago Obstructive sleep apnea syndrome [facility] - Michael Philip APN, LYN 2 months ago Morbid (severe) obesity due to excess calories (HCC) [facility] - Michael Philip APN, LYN 7 months ago Essential hypertension [facility] - [place] APN, LYN Upcoming Appointments Future Appointments In 5 days Niurka Byrne MD [facility] Endocrinology - [facility] Arrive at: Virtual Visit SOCIAL STUDIES DEPARTMENT CHAIR - Recent and Past Visits Recent Visits Date Type Provider Dept 10/20/20 Telemedicine [facility] APN, CNP [facility] 08/25/20 Telemedicine Michael Arroyo APN, CNP [facility] 03/02/20 Office Visit Michael Arroyo APN, FORKLIFT OPERATOR [facility] Showing recent visits within past 460 days with a meds authorizing provider and meeting all other requirements Future Appointments No visits were found meeting these conditions. Showing future appointments within next 90 days with a meds authorizing provider and meeting all other requirements RVISOR LOCOMOTIVE documented in this encounter Plan of Treatment Not on file documented as of this encounter Visit Diagnoses Diagnosis Vitamin D deficiency Unspecified vitamin D deficiency documented in this encounter Care Teams Wellness Nurse Rn Relationship Specialty Start Date End Date Michael Arroyo APRN, FORKLIFT OPERATOR #2 [facility] [address] [place] [address] PCP - General Certified Nurse Practitioner 03/02/20 Niurka Byrne MD #2 [facility] [address] [place] [address] Consulting Physician Endocrinology 09/13/20 Marium Aleman III, MD #2 [place] [address] Consulting Physician Urology 02/25/23 documented as of this encounter
--- OUTSIDE RECORDS SUMMARY | 2025-02-04 18:34 | XMS_ITS | Encounter Summary ---
Author Organization [facility] Address [address] [place] [address] Phone Care Team Providers Care Business Unit Director Name Role Phone Michael Arroyo APRN, CYLINDER DEVALVER Primary Care Pr ovider Niurka Byrne MD Unavailable Ash PRO MD, Courtney Unavailable [phone] Reason for Visit * Reason Comments Medication Refill Encounter Details Date Type Department Care Team (Late st Contact Info) Description 11/28/2021 Refill [facility] - Endocrinology - [place] [address] [place] [address] Niurka Byrne MD #[address] [address] Medication Refill Social History Tobacco Use Types [...] suspected to have Coronavirus/COVID-19? No / Unsure 11/08/2021 8:16 AM CDT documented as of this encounter Miscellaneous Notes * Telephone Encounter - Isaura Cardona, RN - 11/29/2021 11:16 AM CDT Requested Prescriptions Pending Prescriptions Disp Refills ??? Insulin Pen Needle (BD Pen Needle Payam 2nd Gen) 32G X 4 MM Misc [Pharmacy Med Name: BD PAYAM 2 GEN PEN NDL [id number]] 3 Sig: USE TO INJECT INSULIN FIVE TIMES DAILY Next appt: Message sent to schedule follow up. documented in this encounter Plan of Treatment Not on file documented as of this encounter Visit Diagnoses Not on filedocumented in this encounter Care Teams Business Unit Director Relationship Specialty Start Date End Date Michael Arroyo APRN, CYLINDER DEVALVER #2 [facility] [address] [place] [address] PCP - General Certified Nurse Practitioner 03/02/20 Niurka Byrne MD #2 [facility] [address] [place] [address] Consulting Physician Endocrinology 09/13/20 Marium Aleman III, MD [address] [place] [address] Consulting Physician Urology 02/25/23 documented as of this encounter
--- OUTSIDE RECORDS SUMMARY | 2025-02-04 18:34 | XMS_ITS | Encounter Summary ---
Author Organization [facility] Address [address] [place] [address] Phone Care Team Providers Care Spectral Scientist Name Role Phone Michael Arroyo APRN, CNP Primary Care Pr ovider Niurka Byrne MD Unavailable Ash PRO MD, Courtney Unavailable [phone] Reason for Visit * Reason Comments Medication Refill Encounter Details Date Type Department Care Team (Late st Contact Info) Description 12/09/2023 Refill [facility] - [facility] Medicine - [place] [address] [place] [address] Michael Arroyo APRN, LYN #[address] [address] Medication Refill Social History Tobacco Use Types [...] you have received? Some college, no degree 07/10/2023 Sexually Active Control Partners Comments Not Currently Male Comments No Sex and Gender Information Value Date Recorded Sex Assigned at Not on file Legal Sex Female 7:35 PM CDT Gender Identity Not on file Sexual Orientation Not on file Occupation Industry Job Start Date Job End Date disability Not on file Not on file Not on file documented as of this encounter Miscellaneous Notes * Telephone Encounter - Jelena Caballero RN - 12/09/2023 11:33 AM CDT Images from the original note were not included. Name from pharmacy: OMEPRAZOLE DR 20 MG CAPSULE Will file in chart as: omeprazole (PriLOSEC) 20 MG CAPSULE DELAYED RELEASE The original prescription was discontinued on 05/31/2023 by Angelina Almaraz, PAC documented in this encounter Plan of Treatment Not on file documented as of this encounter Visit Diagnoses Not on filedocumented in this encounter Care Teams Spectral Scientist Relationship Specialty Start Date End Date Michael Arroyo APRN, LIFE MANAGEMENT TEACHER #2 [facility] [address] [place] [address] PCP - General Certified Nurse Practitioner 03/02/20 Niurka Byrne MD #2 [facility] [address] [place] [address] Consulting Physician Endocrinology 09/13/20 Marium Aleman III, MD #[address] [place] [address] Consulting Physician Urology 02/25/23 documented as of this encounter
--- OUTSIDE RECORDS SUMMARY | 2025-02-04 18:34 | XMS_ITS | Encounter Summary ---
Author Organization [facility] Address [address] [place] [address] Phone Care Team Providers Care Business Process Representative Name Role Phone Michael Arroyo APRN, CNP Primary Care Pr ovider Niurka Byrne MD Unavailable Ash PRO MD, Courtney Unavailable [phone] Reason for Visit * Reason Comments Medication Refill Encounter Details Date Type Department Care Team (Late st Contact Info) Description 08/08/2021 Refill [facility] - Family Medicine - [place] [address] [place] [phone] Michael Arroyo APRN, LYN #[address] [address] Medication Refill Social History Tobacco Use Types [...] have Coronavirus / COVID-19? No / Unsure 07/14/2021 12:12 PM EYEDOTTER documented as of this encounter Miscellaneous Notes * Telephone Encounter - Komal Ortega RN - 08/08/2021 12:52 PM CST Medication failed the protocol, provider to review and approve the medication order if appropriate. Requested Prescriptions Pending Prescriptions Disp Refills ergocalciferol (VITAMIN D) 31305 UNIT Capsule [Pharmacy Med Name: VITAMIN D2 1.25MG(50,000 UNIT)] 4Capsule 2 Sig: TAKE 1 CAPSULE BY MOUTH ONE TIME PER WEEK Vitamin Supplements (Adult) Protocol Passed - 08/08/2021 8:33 AM Passed - Visit with relevant provider in past 12 months or upcoming 90 days Recent Visits Date Type Provider Dept 05/31/21 Telemedicine Michael Arroyo APRN, CNP [facility] 01/11/21 Telemedicine Micheal Arroyo APRN, LYN [facility] 11/08/20 Office Visit Michael Arroyo APRN, CNP [facility] 10/20/20 Telemedicine Michael Arroyo APRN, LYN [facility] 08/25/20 Telemedicine Michael Arroyo APRN, LYN [facility] [place] Showing recent visits within past 365 days and meeting all other requirements Future Appointments No visits were found meeting these conditions. Showing future appointments within next 90 days and meeting all other requirements Passed - Vitamin D less than 1.25mg OTTER documented in this encounter Plan of Treatment Not on file documented as of this encounter Visit Diagnoses Diagnosis Vitamin D deficiency Unspecified vitamin D deficiency documented in this encounter Care Teams Business Process Representative Relationship Specialty Start Date End Date Michael Arroyo APRN, CNP #[address] [address] PCP - General Certified Nurse Practitioner 03/02/20 Niurka Byrne MD #[address] [address] Consulting Physician Endocrinology 09/13/20 Marium Aleman III, MD #2 [place] [address] Consulting Physician Urology 02/25/23 documented as of this encounter
--- OUTSIDE RECORDS SUMMARY | 2025-02-04 18:34 | XMS_ITS | Encounter Summary ---
Author Organization [facility] Address [address] [place] [address] Phone Care Team Providers Care Director Of Psychiatry Name Role Phone Michael Arroyo APRN, CNP Primary Care Pr ovider Niurka Byrne MD Unavailable Ash PRO MD, Courtney Unavailable [phone] Reason for Visit * Reason Comments Medication Refill Encounter Details Date Type Department Care Team (Late st Contact Info) Description 09/29/2021 Refill [facility] - Family Medicine - [place] [address] [place] [phone] Michael Arroyo APRN, LYN #[address] [address] Medication Refill Social History Tobacco Use Types [...] have Coronavirus / COVID-19? No / Unsure 09/14/2021 2:24 PM LEAD DATA ARCHITECT documented as of this encounter Miscellaneous Notes * Telephone Encounter - Jelena Caballero RN - 10/02/2021 8:20 AM CST Last Rx 09/12/20 for 3 months - pt never had lab work done DATA ARCHITECT documented in this encounter Plan of Treatment Not on file documented as of this encounter Visit Diagnoses Diagnosis Vitamin D deficiency Unspecified vitamin D deficiency documented in this encounter Care Teams Director Of Psychiatry Relationship Specialty Start Date End Date Michael Arroyo APRN, SUSTAINABILITY ANALYST #2 [facility] [address] [place] [address] PCP - General Certified Nurse Practitioner 03/02/20 Niurka Byrne MD #2 [facility] [address] [place] [address] Consulting Physician Endocrinology 09/13/20 Marium Aleman III, MD #2 [place] [address] Consulting Physician Urology 02/25/23 documented as of this encounter
--- OUTSIDE RECORDS SUMMARY | 2025-02-04 18:34 | XMS_ITS | Clinical Summary ---
Author Organization [facility] Address [address] [place] [address] Care Team Providers Care Police Surgeon Name Role Phone Michael Arroyo APRN-RN CCU Primary Care Pro vider Niurka Byrne MD Unavailable Source Comments [facility],non-owned Affiliates and Associated Physician Practices is amultiple site organization consisting of ambulatory clinics and hospital sitesin [place], [place], [place] and [place]. This disclosure is being madepursuant to the Care Everywhere program and may not contain all information available regarding this patient. Last updated 18.[facility] Allergies No known active allergies Medications * Be aware that medications may not be up to date on this document. Alwaysverify current medications with the patient. citalopram (CELEXA) 40 MG tablet Take 1 (one) tablet by mouth once daily Active omeprazole (PRILOSEC) 20 MG capsule Take 1 (one) capsule by mouth daily before breakfast 30 capsule 2 Active HYDROcodone-zulma taminophen ([place]) 5-325 MG tablet Take 1 (one) tablet by mouth every 8 hours as needed 2 Active Multiple Vitamins-Minera ls (BARIATRIC MULTIVITAMINS/I HELADIO PO) Active Calcium Citrate-Vitamin D (CALCIUM CITRATE CHEWY BITE PO) Active Active Problems Problem Noted Date Diagnosed Date S/P gastric bypass 12/13/2021 Morbid obesity due to excess calories 07/05/2016 HTN (hypertension) 07/05/2016 Type 2 diabetes mellitus without complication Hypercholesteremia 07/05/2016 INGA (obstructive sleep apnea) 07/05/2016 Social History Tobacco Use Types Packs/Day Years Used Date Smoking Tobacco: Former Cigarettes 1 12 0 08/2007 - 08/2019 Smokeless Tobacco: Never Tobacco Cessation:Counseling Given: Not Answered Alcohol Use Standard Drinks/Week Comments Not Currently 0 (1 standard drink = 0.6 oz pur e alcohol) Occasionaly AUDIT-C Answer Date Recorded Q1: How often do you have a drink containing alc ohol? Never 12/13/2021 Average Number of Drinks Not on file 022 Q3: How often do you have si x or more drinks on one occasion? Never 12/13/2021 Hunger Vital Sign Answer Date Recorded Within the past 12 months, y ou worried that your food would run out before you got the money to buy more. Never true 12/15/19 22 Within the past 12 months, t he food you bought just didn't last and you didn't have money to get more. Never true 12/14/2021 Comments No Sex and Gender Information Value Date Recorded Sex Assigned at Female 03/03/2021 7:06 AM CDT Legal Sex Female 12:08 PM CDT Gender Identity Female 03/03/2021 7:06 AM CDT Sexual Orientation Straight 03/03/2021 7: 06 AM CDT Last Filed Vital Signs Vital Sign Reading Time Taken Comments Blood Pressure 131/85 06/05/2023 1:02 PM CDT Pulse 66 06/05/2023 1:02 PM CDT Temperature 36.6 C (97.8 F) 06/05/2023 1:02 PM CDT Respiratory Rate 20 12/20/2021 9:41 AM CDT Oxygen Saturation 100% 06/05/2023 1:02 PM CDT Inhaled Oxygen Concentration - - Weight 85.7 kg (189 lb) 06/05/2023 1:02 PM CDT Height 167.6 cm (5' 6) 06/05/2023 1:02 PM CDT Body Mass Index 30.51 06/05/2023 1:02 PM CDT Plan of Treatment Health Maintenance Due Date Last Done Comments DTAP/TDAP/TD VACCINES (1 - Tdap) 2000 HEPATITIS B VACCINE (1 of 3 - 19+ 3-dose series) 2000 PNEUMOCOCCAL VACCINE (1 of 2 - PCV) 2000 DIABETES RETINOPATHY SCREENING 03/03/2021 DIABETES-FOOT EXAM WITH MONOFILAMENT 03/03/2021 DIABETES-STATIN 2021 DIABETES-HGB A1C 11/20/2022 05/23/2022, , 05/23/2021 COVID-19 VACCINE ( - season) 2024 DIABETES-SERUM CREATININE 05/08/20242022, 05/08/2023, 05/07/2023, Additional history exists DEPRESSION SCREENING 08/26/2024 DIABETES - URINE PROTEIN SCREENING 08/26/2024 09/12/2020 MAMMOGRAM 12/18/2024 12/18/2022, 11/22/2022 PAP SMEAR 03/27/2025 03/27/2022 INFLUENZA VACCINE (Season Ended) 2025 09/23/2014 ZOSTER VACCINE (1 of 2) 2031 HEPATITIS C SCREENING Completed 11/06/2022, 020 HIV SCREENING Completed 11/06/2022, 03/31/2022 HIB VACCINE Aged Out No longer eligi ble based on patient's age to complete this topic HPV VACCINE Aged Out No longer eligi ble based on patient's age to complete this topic MENINGOCOCCAL (Group B) VACCINE SHARED DECISION-MAKING Aged Out No longer eligible based on patient's age to complete this topic MENINGOCOCCAL GROUPS A/C/Y/W VACCINE Aged Out No longer eligible based on patient's age to complete this topic Procedures Procedure Name Priority Date/Time Associated Diagnosis Comments COMPREHENSIVE METABOLIC PANEL Routine 05/07/2023 1:44 PM CDT Morbid obesity Bariatric surgery status Vitamin deficiency Vitamin D deficiency Postsurgical malabsorption HEMOGLOBIN A1C Routine 11/14/2021 2:05 PM CDT Controlled type 2 diabetes mellitus without complication, 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 Morbid obesity Preop testing Morbid obesity due to excess calories from Last 3 Months or Most Recently Relevant to Health Maintenance Results * (ABNORMAL) COMPREHENSIVE METABOLIC PANEL (05/07/2023 1:44 PM CDT) Glucose 82 70 - 99 mg/dL [facility] ACCOUNT BILL BUN 16 6 - 24 mg/dL [facility] ACCOUNT BILL Creatinine 0.67 0.57 - 1.00 mg/dL [facility] ACCOUNT BILL eGFR by CKD-EPI 113 >59 mL/min/1.7 3 [facility] ACCOUNT BILL BUN/Creatinine Ratio 24(H) 9 - 23 [facility] ACCOUNT BILL Sodium 141 134 - 144 mmol/L [facility] ACCOUNT BILL Potassium 4.0 3.5 - 5.2 mmol/L [facility] ACCOUNT BILL Chloride 105 96 - 106 mmol/L [facility] ACCOUNT BILL CO2 24 20 - 29 mmol/L [facility] ACCOUNT BILL Calcium 8.9 8.7 - 10.2 mg/dL [facility] ACCOUNT BILL Protein Total 6.3 6.0 - 8.5 g/dL [facility] ACCOUNT BILL Albumin 3.8(L) 3.9 - 4.9 g/dL [facility] ACCOUNT BILL Globulin Total 2.5 1.5 - 4.5 g/dL [facility] ACCOUNT BILL Albumin/Globulin Ratio 1.5 1.2 - 2.2 [facility] ACCOUNT BILL Bilirubin Total 0.4 0.0 - 1.2 mg/dL [facility] ACCOUNT BILL Alkaline Phosphatase 59 44 - 121 IU/L [facility] ACCOUNT BILL AST 18 0 - 40 IU/L [facility] ACCOUNT BILL ALT 15 0 - 32 IU/L [facility] ACCOUNT BILL Blood BLOOD SPECIMEN / Unknown 05/07/2023 1:44 PM CDT 05/07/2023 Narrative Resulting Agency Comment [facility]: [facility] [address] [id number] Julia Silva PIANO MACHINE OPERATOR-RN CCU LAB - CHEMISTRY EVY WATSON Final Result [facility] ACCOUNT BILL [address] [place] [address] * (ABNORMAL) HEMOGLOBIN A1C (HgbA1C) (11/14/2021 2:05 PM CDT) Hemoglobin A1c 7.3(H) 4.8 - 5.6 % [facility] INSURANCE BILL Comment: . Prediabetes: 5.7 - 6.4 Diabetes: >6.4 Glycemic control for adults with diabetes: <7.0 Blood BLOOD SPECIMEN / Unknown 11/14/2021 2:05 PM CDT 11/14/2021 Narrative Resulting Agency Comment Lab [facility] performed at: [facility] [address] [id number] us Robin Almeida MD LAB - CHEMISTRY ORDERABLES Fi nal Result [facility] [address] [place] [address] from Last 3 Months or Most Recently Relevant to Health Maintenance Insurance [facility] [employer] - OUT OF [place] [address] [address] [place] [address] [facility] Advance Directives * Full Code (Latest Code Status on File) Date Activated Date Inactivated Comments 12/13/2021 5:01 PM 12/14/2021 7:09 PM Care Teams Police Surgeon Relationship Specialty Start Date End Date Michael Arroyo, PIANO MACHINE OPERATOR-RN CCU PCP - General Nurse Practitioner 11/29/21 Niurka Byrne MD 11/29/21
--- OUTSIDE RECORDS SUMMARY | 2025-02-04 18:34 | XMS_ITS | Clinical Summary ---
Author Organization [facility] Address [address] [place] [address] Phone Care Team Providers Care Kiss Machine Operator Name Role Phone Michael Arroyo APRN, BLOOD TYPER Primary Care Pr ovider Niurka Byrne MD Unavailable Ash PRO MD, Courtney Unavailable [phone] Allergies Active Allergy Reactions Criticality Noted Date Comments Latex Hives Medium 06/20/2024 Medications Multiple Vitamins-[place] als (Centrum Silver Adult 50+) Tablet Take 1 Tab by mouth every morning. Take one tablet by mouth daily Active calcium citrate (CALCITRATE) 950 (200 Ca) MG Tablet Take 950 mg by mouth. Active esomeprazole (NexIUM) 40 MG CAPSULE DELAYED RELEASEIndicat ions:Colicky epigastric pain Take 1 Capsule by mouth daily. 90 Capsule 3 4 Active citalopram (CeleXA) 40 MG Tablet Take 1 Tablet by mouth daily. 90 Tablet 3 5 Active atomoxetine (Strattera) 25 MG Capsule Take 25 mg by mouth daily. Active Ozempic, 1 MG/DOSE, 4 MG/3ML Solution Pen-injector 1 mg by Subcutaneous route once a week. 9 mL 5 Active tiZANidine (ZANAFLEX) 2 MG Tablet Take 1 Tablet by mouth 3 times daily. 90 Tablet 5 Active HYDROcodone-ac etaminophen (NORCO) 5-325 MG TabletIndicati ons:Chronic joint pain Take 1 Tablet by mouth 2 times daily as needed for Moderate or more severe pain. 60 Tablet 5 Active HYDROcodone-ac etaminophen (NORCO) 5-325 MG TabletIndicati ons:Chronic joint pain Take 1 Tablet by mouth 2 times daily as needed for Moderate or more severe pain. 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 023 Bipolar disorder 03/08/2023 Hyperuricemia 05/24/2021 Microalbuminuria 09/12/2020 Morbid (severe) obesity due to excess calories 0 08/31/2020 Personal history of colonic polyps 08/31/2020 Hemorrhoids 08/31/2020 Hepatomegaly 06/24/2020 Hepatic steatosis 06/24/2020 Elevated liver enzymes 06/09/2020 Gestational diabetes mellitus 03/02/2020 Colon polyp 03/02/2020 OAB (overactive bladder) 03/02/2020 OA (osteoarthritis) of hip 03/02/2020 Laryngopharyngeal reflux 10/31/2017 Pachyderma of larynx 10/31/2017 PNAR (perennial non-allergic rhinitis) 8 Halitosis 10/31/2017 Periodic limb movements of sleep 10/21/2017 Hypercholesteremia 07/05/2016 Vitamin D deficiency 04/25/2016 Tobacco use disorder, moderate, in sustained rem ission 02/15/2016 Adjustment disorder with mixed anxiety and depre ssed mood 10/24/2015 Bursitis of hip 10/24/2015 High blood pressure 10/24/2015 Simple chronic bronchitis 10/24/2015 Type 2 diabetes mellitus without complication Hypersomnia with sleep apnea 11/15/2011 Overview (03/02/2020): Overview: Hypersomnia Obstructive sleep apnea syndrome 11/15/2011 Overview (03/02/2020): Overview: Obstructive sleep apnea syndrome Encounters Date Type Department Care Team Description 01/13/2025 Refill [facility] [address] [place] [address] Michael Arroyo APRN, LYN Medication Refill 01/04/2025 Refill [facility] [address] [place] [address] Michael Arroyo APRN, LYN Medication Refill 12/10/2024 MyChart RX Renewal [facility] [place] [address] [place] [address] Michael Arroyo APRN, LYN Medication Renewal Declined 11/05/2024 MyChart RX Renewal [facility] [address] [place] [address] Niurka Byrne MD Medication Renewal Reviewed 11/05/2024 MyChart RX Renewal [facility] [address] [place] [address] Michael Arroyo APRN, LYN Medication Renewal Declined from Last 3 Months Immunizations Immunization Administration Dates Next Due DTP Vaccine 01/15/1986,02/08/1983,1981 ,1981,1981 MMR Vaccine 05/20/1991,01/03/1983 OPV 01/15/1986,02/08/1983,1981 ,1981,1981 TD VACCINE 06/05/1996 Family History Medical History Relation Name Comments No Known Problems Daughter 1 No Known Problems Daughter 2 No Known Problems Daughter 3 Cataract Father Álvaro bilateral Diabetes Father Álvaro Hypertension Father Álvaro Migraines Father Álvaro Rashes/Skin Problems Father Álvaro No Known Problems Half-Sister Anxiety disorder Mother Ellen Arthritis Mother Ellen Depression Mother Ellen Osteoarthritis Mother Ellen Other-comment Mother Ellen fibromyalgia Scoliosis Mother Ellen Relation Name Status Comments Daughter 1 Alive Daughter 2 Alive Daughter 3 Alive Father Álvaro Alive Half-Sister Alive Mother Ellen Alive Social History Tobacco Use Types Packs/Day Years Used Date Smoking Tobacco: Former Cigarettes 1 25 0 08/31/1996 - 12/30/2019 Smokeless Tobacco: Never Tobacco Cessation:Counseling Given: Not Answered Comments:quit for 8 years Alcohol Use Standard Drinks/Week Comments No 0 (1 standard drink = 0.6 oz pur e alcohol) [facility] Utilities Answer Date Recorded In the past 12 months has maria r e electric, gas, oil, or water company threatened to shut off services in your home? Yes 07/09/2024 Social Connection and Isolation Panel Answer Date Recorded In a typical week, how many times do you talk on the phone with family, friends, or neighbors? Three times a week 07/09/20 How often do you get togethe r with friends or relatives? Once a week 07/09/2024 How often do you attend chur ch or mandaeism services? 1 to 4 times per year 07/09/2024 Do you belong to any clubs o r organizations such as anglican groups, unions, fraternal or athletic groups, or school groups? Yes 07/09/2024 How often do you attend meet ings of the clubs or organizations you belong to? 1 to 4 times per year 07/09/2024 Are you , , di vorced, , never , or living with a partner? 07/09/2024 AUDIT-C Answer Date Recorded Q1: How often do you have a drink containing alc ohol? Never 07/09/2024 Q2: How many drinks containi ng alcohol do you have on a typical day when you are drinking? 1 or 2 07/09/2024 Q3: How often do you have six or more drinks on one occasion? Never 07/09/2024 Overall Financial Resource Strain (CARDIA) Answe r Date Recorded How hard is it for you to pa y for the very basics like food, housing, medical care, and heating? Hard 07/09/2024 [facility] - Occupational Stress Questionnaire Answer Date Recorded Do you feel stress - tense, restless, nervous, or anxious, or unable to sleep at night because your mind is troubled all the time - these days? Rather much 07/09/2024 Exercise Vital Sign Answer Date Recorde d On average, how many days pe r week do you engage in moderate to strenuous exercise (like a brisk walk)? 3 days 07/09/2024 On average, how many minutes do you engage in exercise at this level? 20 min 07/09/2024 Hunger Vital Sign Answer Date Recorded Within the past 12 months, y ou worried that your food would run out before you got the money to buy more. Often true Within the past 12 months, t he food you bought just didn't last and you didn't have money to get more. Sometimes true PRAPARE - Transportation Answer Date Re corded In the past 12 months, has l ack of transportation kept you from medical appointments or from getting medications? Yes 06/26 In the past 12 months, has l ack of transportation kept you from meetings, work, or from getting things needed for daily living? Yes 07/09/2024 Housing Stability Vital Sign Answer Landry e Recorded In the last 12 months, was t here a time when you were not able to pay the mortgage or rent on time? Yes 07/09/2024 Number of Times Moved in the Last Year Not on fi le 07/09/2024 At any time in the past 12 m [facility], were you homeless or living in a alf (including now)? No 07/09/2024 Education Answer Date Recorded What is the highest level of school you have completed or the highest degree you have received? Some college, no degree 07/10/2023 Sexually Active Control Partners Comments Yes Implant Male Comments No Sex and Gender Information Value Date Recorded Sex Assigned at Not on file Legal Sex Female 7:35 PM CDT Gender Identity Not on file Sexual Orientation Not on file Occupation Industry Job Start Date Job End Date disability Not on file Not on file Not on file Last Filed Vital Signs Vital Sign Reading Time Taken Comments Blood Pressure 118/84 10/14/2024 1:12 PM NUB CARD TENDER Pulse 78 10/14/2024 1:12 PM NUB CARD TENDER Temperature 36.4 C (97.6 F) 10/14/2024 1:12 PM NUB CARD TENDER Respiratory Rate 16 10/14/2024 1:12 PM NUB CARD TENDER Oxygen Saturation 98% 10/14/2024 1:12 PM NUB CARD TENDER Inhaled Oxygen Concentration - - Weight 76.4 kg (168 lb 8 oz) 10/14/2024 1:12 PM NUB CARD TENDER Height 167.6 cm (5' 6) 10/14/2024 1:12 PM NUB CARD TENDER Body Mass Index 27.2 10/14/2024 1:12 PM NUB CARD TENDER Plan of Treatment Health Maintenance Due Date Last Done Comments DTaP/Tdap/Td Immunization (6 - Tdap) 06/06/1996 06/05/1996, 01/15/1986, 02/08/1983, Additional history exists Human Papillomavirus (HPV) Immunization (1 - 3-dose series) 1996 Hepatitis B Immunization (1 of 3 - 19+ 3-dose series) 2000 Diabetes: Nephropathy Screening 11/07/2023 11/06/2022, 09/12/2020, 06/08/2020 SARS-COV-2 Immunization ( season) 2024 Diabetes: Eye Exam 12/01/2024 12/02/2023 Diabetes: Hemoglobin A1c 03/15/2025 025, 05/12/2024, 07/10/2023, Additional history exists Influenza Immunization (Season Ended) 2025 Diabetes: Foot Exam 05/12/2025 05/12/2024, 11/21/2022, 06/19/2021, Additional history exists Mammogram 07/06/2025 07/06/2024, 1104/2023, 11/22/2022 Cervical Cancer Screening (CCS) 10/08/2027 HPV/Cotest 10/08/2027 10/08/2022, 03/27/2022 Pap Smear 10/08/2027 10/08/2022, 0809/2021, 03/03/2020 Colonoscopy 09/15/2030 09/15/2020 Colorectal Cancer Screening 09/15/2030 Respiratory Syncytial Virus (RSV) Immunization (Adult) (1 - 1-dose 75+ series) 2056 Discussion re Starting/Frequency of Mammograms Completed 07/06/2024, 07/04/2023, 12/18/2022, Additional history exists Hepatitis C Virus (HCV) Screening Completed 10/14/2024, 05/20/2024, 11/06/2022, Additional history exists Meningococcal Immunization (ACWY) Aged Out No longer eligible based on patient's age to complete this topic Pneumococcal Immunization Combined Discontinued Rotavirus Immunization Aged Out No lo nger eligible based on patient's age to complete this topic Procedures Procedure Name Priority Date/Time Associated Diagnosis Comments HEPATITIS C ANTIBODY Routine 10/14/2024 2:28 PM NUB CARD TENDER Possible exposure to STI POCT GLYCOSYLATED HEMOGLOBIN Routine 09/15/2024 1:34 PM NUB CARD TENDER Type 2 diabetes mellitus without complication, with long-term current use of insulin (HCC) GREGORY DIAG BILATERAL DIGITAL W CAD W ANDREEA Routine 07/06/2024 2:30 PM NUB CARD TENDER Abnormal mammogram HM DILATED EYE EXAM 12/02/2023 1 2:00 AM CDT PODIATRY CONSULT 11/21/2022 12:0 0 AM CDT CMP (COMPREHENSIVE METABOLIC PANEL) Routine 11/06/2022 4:17 PM CDT Hypochromic microcytic anemia HUMAN PAPILLOMA VIRUS (HPV) Routine 10/08/2022 4:56 PM NUB CARD TENDER Encounter for screening for human papillomavirus (HPV) PATHOLOGY CYTOLOGY HEALTH CLUB ATTENDANT Routine 10/08/2022 4:56 PM NUB CARD TENDER Encounter for gynecological examination without abnormal finding Screening for malignant neoplasm of cervix from Last 3 Months or Most Recently Relevant to Health Maintenance Results * HEPATITIS C ANTIBODY (10/14/2024 2:28 PM NUB CARD TENDER) hepatitis C antibody 0.16 <1 S/CO 10/14/2024 10:42 PM NUB CARD TENDER [facility] Comment: Signal/Cutoff ratio < 0.79 is Nondetected Signal/Cutoff ratio 0.80-0.99 is Grayzone Signal/Cutoff ratio > 0.99 is Detected Supplemental assays are recommended if signal/cutoff ratio is >/=1.00. Signal/cutoff ratio result >/= 5.00 is 97% predictive of positivity for recombinant immunoblot assay (RIBA) and will be reported to the [place] Department of Public Health as required. Blood Venipuncture / Unknown 10/14/2024 2:28 PM NUB CARD TENDER 10/14/2024 3:00 PM NUB CARD TENDER us Jud Vital WIRELESS TELEGRAPHER, BLOOD TYPER CHEMISTRY ORDERABLES Fin al Result [facility] [address] [place] [address], [place] * POCT GLYCOSYLATED HEMOGLOBIN (09/15/2024 1:34 PM NUB CARD TENDER) HGB-A1C 5.1 4 - 6 % Blood 09/15/2024 1:34 PM NUB CARD TENDER us Michael Arroyo APRN, CNP POINT OF CARE TE STING (MANUAL) Final Result * GREGORY DIAG BILATERAL DIGITAL W CAD W ANDREEA (07/06/2024 2:30 PM NUB CARD TENDER) Anatomical Region Laterality Modality breast Bilateral Mammography 07/06/2024 2:33 PM NUB CARD TENDER Narrative 07/07/2024 8:00 AM NUB CARD TENDER - GREGORY DIAG BILATERAL DIGITAL W CAD W ANDREEA BILATERAL DIGITAL DIAGNOSTIC MAMMOGRAM 3D/2D WITH CAD WITH MEDIOLATERAL OBLIQUE CRANIOCAUDAL: 07/06/2024 The study was acquired using digital technology and interpreted from soft copy. Current study was also evaluated with ICAD version 7.2. 2D digital mammographic views, as well as 3D digital tomosynthesis were performed in the CC and MLO projections. CLINICAL: Diagnostic study. Patient returns for a 6 month follow-up right breast and left annual. Patient has no new concerns. Maternal grandmother and paternal grandmother had breast cancer. Maternal aunt had breast cancer. COMPARISONS: Comparison is made to exams dated: 07/04/2023, 07/04/2023, 11/22/2022, and 12/07/2022 [facility]. BREAST TISSUE:There are scattered areas of fibroglandular density. FINDINGS: There are benign calcifications in both breasts. The mass at the 12 o'clock position of the right breast, middle depth and the mass at the 2 o'clock position of the left breast, middle depth appear stable. The mass in the right axilla is not included on today's images and an additional MLO view to include the axilla is recommended. No other other significant masses or calcifications are seen in either breast on the mammogram. IMPRESSION: INCOMPLETE: NEED ADDITIONAL IMAGING EVALUATION A repeat right MLO view to include the axilla is recommended. Bilateral breast sonography is also required. The patient was unable to stay to complete the evaluation at this time. She will be rescheduled for a later date. The results and recommendations were discussed with the patient. Electronically signed by: Gala Altamirano M.D. ll/:07/06/2024 16:38:23 Women'S Basketball Coach(s): RT Abdelrahman(R)(M), [facility] letter sent: Additional Imaging Reading location: [place] Mammogram BI-RADS: Category 0: Incomplete: Need Additional Imaging Evaluation Procedure Note Gala Altamirano MD - 07/07/2024 - GREGORY DIAG BILATERAL DIGITAL W CAD W ANDREEA BILATERAL DIGITAL DIAGNOSTIC MAMMOGRAM 3D/2D WITH CAD WITH MEDIOLATERAL OBLIQUE CRANIOCAUDAL: 07/06/2024 The study was acquired using digital technology and interpreted from soft copy. Current study was also evaluated with [employer] version 7.2. 2D digital mammographic views, as well as 3D digital tomosynthesis were performed in the CC and MLO projections. CLINICAL: Diagnostic study. Patient returns for a 6 month follow-up right breast and left annual. Patient has no new concerns. Maternal grandmother and paternal grandmother had breast cancer. Maternal aunt had breast cancer. COMPARISONS: Comparison is made to exams dated: 07/04/2023, 07/04/2023, 11/22/2022, and 12/07/2022 [facility]. BREAST TISSUE:There are scattered areas of fibroglandular density. FINDINGS: There are benign calcifications in both breasts. The mass at the 12 o'clock position of the right breast, middle depth and the mass at the 2 o'clock position of the left breast, middle depth appear stable. The mass in the right axilla is not included on today's images and an additional MLO view to include the axilla is recommended. No other other significant masses or calcifications are seen in either breast on the mammogram. IMPRESSION: INCOMPLETE: NEED ADDITIONAL IMAGING EVALUATION A repeat right MLO view to include the axilla is recommended. Bilateral breast sonography is also required. The patient was unable to stay to complete the evaluation at this time. She will be rescheduled for a later date. The results and recommendations were discussed with the patient. Electronically signed by: Gala Altamirano M.D. ll/:07/06/2024 16:38:23 Women'S Basketball Coach(s): RT Abdelrahman(R)(M), [facility]: Additional Imaging Reading location: [place] Mammogram BI-RADS: Category 0: Incomplete: Need Additional Imaging Evaluation us Michael Arroyo APRN, BLOOD TYPER IMG MAMMO ORDERA BLES Final Result * HM DILATED EYE EXAM (12/02/2023 12:00 AM CDT) 12/02/2023 us Provider Scan PROCEDURE/MINOR SURGICAL ORDERAB LES Final Result Performing Organization Address City/[facility]/ZIP Co de Phone Number SCAN * PODIATRY CONSULT (11/21/2022 12:00 AM CDT) 11/21/2022 Ralph Bo MD GENERIC SCAN ORDERS CONSU LT Final Result Performing Organization Address City/[facility]/ZIP Co de Phone Number SCAN * (ABNORMAL) CMP (COMPREHENSIVE METABOLIC PANEL) (11/06/2022 4:17 PM CDT) SODIUM 138 136 - 144 mmol/L 11/06/2022 5:09 PM CDT [facility] POTASSIUM 3.9 3.5 - 5.1 mmol/L 11/06/2022 5:09 PM CDT [facility] CHLORIDE 101 100 - 110 mmol/L 11/06/2022 5:09 PM CDT [facility] CO2, VENOUS 24 22 - 32 mmol/L 11/06/2022 5:09 PM CDT [facility] ANION GAP 16.9 8.0 - 20.0 mmol/L 11/06/2022 5:09 PM CDT [facility] GLUCOSE 94 70 - 99 mg/dL 11/06/2022 5:09 PM CDT [facility] BUN 17 6 - 20 mg/dL 11/06/2022 5:09 PM [facility] CREATININE, BLOOD 0.55(L) 0.60 - 1.10 mg/dL 11/06/2022 5:09 PM [facility] BUN/CREATININE RATIO 31(H) 12 - 20 ratio 11/06/2022 5:09 PM [facility] TOTAL PROTEIN 7.4 6.0 - 8.3 g/dL 11/06/2022 5:09 PM [facility] ALBUMIN 4.1 3.5 - 5.2 g/dL 11/06/2022 5:09 PM [facility] Comment: The colormetric methods used for the determination of Albumin may lead to falsely elevated test results in patients suffering from renal failure or insufficiency due to interference with other proteins. A/G RATIO 1.2 1.0 - 2.0 11/06/2022 5:09 PM [facility] CALCIUM 9.5 8.9 - 10.3 mg/dL 11/06/2022 5:09 PM [facility] T BILI 0.7 <=1.2 mg/dL 11/06/2022 5:09 PM [facility] SGOT (AST) 13 <=32 U/L 11/06/2022 5:09 PM [facility] SGPT (ALT) 10 <=41 U/L 11/06/2022 5:09 PM [facility] ALKALINE PHOSPHATASE 82 35 - 105 U/L 11/06/2022 5:09 PM [facility] IS THE PATIENT REQUIRED TO BE FASTING? No 11/06/2022 5:09 PM [facility] GFR, ESTIMATED >60 >=60 11/06/2022 5:09 PM [facility] Comment: Creatinine Clearance is the preferred criteria for selecting drug dose adjustments in renally impaired patients. The GFR is provided as additional pertinent clinical information. GFR is reported in mL/min/1.73 sq m. Calculation based on the Chronic Kidney Disease Epidemiology Collaboration (CKD- EPI) equation refit without adjustment for race. GFR, EST. >60 >=60 023 5:09 PM CDT [facility] GFR, EST. NONAFRICAN >60 >=60 11/06/2022 5:09 PM CDT [facility] Blood Venipuncture / Unknown 11/06/2022 4:17 PM CDT 11/06/2022 4:35 PM CDT us Michael Arroyo APRN, BLOOD TYPER CHEMISTRY ORDERA BLES Final Result [facility] [address] [place] [address] * PATHOLOGY CYTOLOGY HEALTH CLUB ATTENDANT (10/08/2022 4:56 PM NUB CARD TENDER) SPECIMEN ADEQUACY Satisfactory for evaluation. Endocervical/transf ormation zone component is present. 10/15/2022 2:21 PM NUB CARD TENDER [facility] DESCRIPTIVE DIAGNOSIS NEGATIVE FOR INTRAEPITHELIAL LESIONS OR MALIGNANCY. 10/15/2022 2:21 PM NUB CARD TENDER [facility] at [address] NUB CARD TENDER OTHER FINDINGS Atrophic hormonal pattern. 10/15/2022 2:21 PM NUB CARD TENDER [facility] HPV Reflex if ASCUS? Yes 10/15/2022 2:21 PM NUB CARD TENDER [facility] Automated Examination Analysis of this sample has been assisted by an automated imaging and review system ([employer] Imaging System, [employer], [place], [place]). This case is further evaluated and finalized by a public relations writer and/or pathologist. 10/15/2022 2:21 PM NUB CARD TENDER [facility] Disclaimer The PAP smear is a screening test designed to detect cancerous or precancerous cells of the uterine cervix. It is one of the best means available for detection of cervical cancer but still carries an inherent false-negative rate. The consequences of a false-negative PAP result can be minimized by adhering to current screening guidelines. The following are general guidelines recommended by the ACS, ASCP, ASCCP, and ACOG: PAP testing is recommended every three years for women 21-29, Co-Testing, a PAP test in conjunction with an HPV (Human Papillomavirus) test for women ages 30-65, and no PAP or HPV testing for women under the age of 21 or older than 65 unless clinically indicated. 10/15/2022 2:21 PM NUB CARD TENDER [facility] Other CERVIX UTERI STRUCTURE / Unknown Non-Phlebotomy Collection / Unknown 10/08/2022 4:56 PM NUB CARD TENDER 10/08/2022 4:57 PM NUB CARD TENDER us Wilber Bobby MD PATHOLOGY/CYTOLOGY ORDERABLES Fi nal Result [facility] [address] [place] [address], * HUMAN PAPILLOMA VIRUS (HPV) (10/08/2022 4:56 PM NUB CARD TENDER) HPV OTHER HIGH RISK TYPES, PCR NEGATIVE NEGATIVE 10/12/2022 7:19 AM NUB CARD TENDER [facility] Comment: The following Other High Risk types were not detected: 31, 33, 35, 39, 45, 51, 52, 56, 58, 59, 66, and 68. A negative high-risk HPV result does not exclude the possibility of future cytologic HSIL or underlying CIN2-3 or cancer. The presence of PCR inhibitors may cause false negative or invalid results. If concentrations of whole blood in the sample exceed 1.5% (dark red or brown coloration) in PreservCyt solution, there is a likelihood of obtaining a false-negative result. HPV TYPE 16 NEGATIVE NEGATIVE 10/12/2022 7:19 AM NUB CARD TENDER [facility] Comment: A negative high-risk HPV result does not exclude the possibility of future cytologic HSIL or underlying CIN2-3 or cancer. The presence of PCR inhibitors may cause false negative or invalid results. If concentrations of whole blood in the sample exceed 1.5% (dark red or brown coloration) in PreservCyt solution, there is a likelihood of obtaining a false-negative result. HPV TYPE 18 NEGATIVE NEGATIVE 10/12/2022 7:19 AM NUB CARD TENDER [facility] Comment: A negative high-risk HPV result does not exclude the possibility of future cytologic HSIL or underlying CIN2-3 or cancer. The presence of PCR inhibitors may cause false negative or invalid results. If concentrations of whole blood in the sample exceed 1.5% (dark red or brown coloration) in PreservCyt solution, there is a likelihood of obtaining a false-negative result. HPV ORDER BE USED FOR SCREENING OR DIAGNOSTIC SCREENING 10/12/2022 7:19 AM NUB CARD TENDER [facility] Other Non-Phlebotomy Collection / Unknown 10/08/2022 4:56 PM NUB CARD TENDER 10/08/2022 4:57 PM NUB CARD TENDER Narrative [facility] - 10/12/2022 7:19 AM NUB CARD TENDER Performed by Real-Time Polymerase Chain Reaction (PCR) on the Martina Myriam 4800. This assay has been validated for use with post-aliquot samples from the [employer] T5000 processor. Wilber Bobby MD LAB SEND OUTS Final Result [facility] [address] [place] [address], [facility] [address] [place] [address] from Last 3 Months or Most Recently Relevant to Health Maintenance Insurance MEDICAID [place] MEDICARE C [employer] Advance Directives * Full Code (Latest Code Status on File) Date Activated Date Inactivated Comments 09/13/2020 7:15 AM 09/15/2020 9:13 AM Care Teams Kiss Machine Operator Relationship Specialty Start Date End Date Michael Arroyo APRN, BLOOD TYPER #2 [facility] [address] [place] [address] PCP - General Certified Nurse Practitioner 03/02/20 Niurka Byrne MD #2 [facility] [address] [place] [address] Consulting Physician Endocrinology 09/13/20 Marium Aleman III, MD #2 [place] [address] Consulting Physician Urology 02/25/23
--- OUTSIDE RECORDS SUMMARY | 2025-02-04 18:34 | XMS_ITS | Encounter Summary ---
Author Organization [facility] Address [address] [place] [address] Phone Care Team Providers Care Production Posting Clerk Name Role Phone Michael Arroyo APRN, CNP Primary Care Pr ovider Niurka Byrne MD Unavailable Ash PRO MD, Courtney Unavailable [phone] Reason for Visit * Reason Onset Date Comments Medication Refill 06/08/2021 Encounter Details Date Type Department Care Team (Late st Contact Info) Description 06/08/2021 Refill [facility] - Family Medicine - [place] [address] [place] [address] Michael Arroyo APRN, INTERPRETATIVE DANCER [address] [address] Medication Refill Social History Tobacco Use Types [...] have Coronavirus / COVID-19? No / Unsure 05/31/2021 1:40 PM CDT documented as of this encounter Miscellaneous Notes * Telephone Encounter - Jelena Caballero RN - 06/09/2021 9:08 AM CDT [place] PDMP 05/10/21 Medication failed the protocol, provider to review and approve the medication order if appropriate. Requested Prescriptions Pending Prescriptions Disp Refills HYDROcodone-acetaminophen (NORCO) 5-325 MG Tablet 90 Tablet 0 Sig: Take 1 Tablet by mouth every 8 hours as needed for Moderate or more severe pain. [facility] Not Delegated - Analgesics: Opioid Agonist Combinations Failed - 06/09/2021 9:08 AM Failed - This refill cannot be delegated Passed - Valid encounter within last 6 months Past Office Visits Recent Outpatient Visits 1 week ago Seasonal allergic rhinitis, unspecified trigger [facility] Family [facility] - Michael Philip APN, INTERPRETATIVE DANCER 4 months ago Carpal tunnel syndrome of left wrist [facility] - Michael Philip APN, INTERPRETATIVE DANCER 7 months ago Primary osteoarthritis of both hips [facility] - Michael Philip APN, INTERPRETATIVE DANCER 7 months ago Obstructive sleep apnea syndrome [facility] - Michael Philip APN, INTERPRETATIVE DANCER 9 months ago Morbid (severe) obesity due to excess calories (HCC) [facility] - Michael Philip APN, INTERPRETATIVE DANCER Upcoming Appointments Future Appointments In 1 week Niurka Byrne MD [facility] [place] CLIMATOLOGY PROFESSOR - Recent and Past Visits Recent Visits Date Type Provider Dept 05/31/21 Telemedicine Michael Arroyo APN, CNP [facility] 01/11/21 Telemedicine Michael Arroyo APN, CNP [facility] [place] 11/08/20 Office Visit Michael Arroyo APN, CNP [facility] [place] 10/20/20 Telemedicine Michael Arroyo APN, LYN [facility] 08/25/20 Telemedicine Michael Arroyo APN, LYN [facility] Showing recent visits within past 460 days with a meds authorizing provider and meeting all other requirements Future Appointments No visits were found meeting these conditions. Showing future appointments within next 90 days with a meds authorizing provider and meeting all other requirements * Telephone Encounter - Hugo Lucy - 06/08/2021 2:17 PM CDT Received a faxed Rx request from pharmacy. Reordered refill medication(s) requested and pended for nurse and physician/THALIA review. Refill encounter routed to [facility] for processing. documented in this encounter Plan of Treatment Not on file documented as of this encounter Visit Diagnoses Diagnosis Primary osteoarthritis of both hips Primary localized osteoarthrosis, pelvic region and thigh documented in this encounter Care Teams Production Posting Clerk Relationship Specialty Start Date End Date Michael Arroyo APRN, LYN [address] [address] PCP - General Certified Nurse Practitioner 03/02/20 Niurka Byrne MD [address] [address] Consulting Physician Endocrinology 09/13/20 Marium Aleman III, MD [address] [place] [address] Consulting Physician Urology 02/25/23 documented as of this encounter
--- OUTSIDE RECORDS SUMMARY | 2025-02-04 18:38 | XMS_ITS | Continuity of Care Document ---
Author Organization [employer] [place] Address [address] [place] [address] [address] [place] [address] Phone Care Team Providers Care Fisheries Technician Name Role Phone Susie Aram GARG Unavailable [...] Diagnoses Date Provider Providers Copied on Encounter [facility], [place], [place], [address], tel:[phone] [place] No Information 4 Susie Chiu. . [facility], [place], [place], [address], tel:[phone] [place] No Information 4 Maru Cancino. [address] [facility], [address], [place], [place], [facility], [place]. tel:[phone] Referring Provider: Michael Ball, 2 [facility] 205, [place], [address]. tel:[phone] [facility], [place], [place], [address], [place] tel:[phone] Lenny No Information 4 Susie Chiu. . Referring Provider: Michael Ball, 2 [facility] 205, [place], [address]. tel:[phone] [facility] [address], [place], [place], [address], [place] tel:[phone] [place] No Information 3 Susie Chiu. . Referring Provider: Imer Scott, [address] [place] [address] [address], [place], [address]. tel:[phone] [facility] [address], [place], [place], [address], [place] tel:[phone] Lenny No Information 3 Maru Cancino. [address] [facility], [address], [place], [address], [place]. tel:[phone] Referring Provider: Imer Scott, [address] [place] [address] [address], [place], [address]. tel:[phone] [facility] [address], [place], [place], [address], tel:[phone] [place] No Information 3 Maru Cancino. [address] [facility], [address], [place], [address], [place]. tel:[phone] Referring Provider: Imer Scott, [address] [place] [address] [address], [place], [address]. tel:[phone], [place], [place], [address], tel:[phone] [place] No Information 0 3 Maru Cancino. [address] [place] [address], [address], [place], [address], [place]. tel:[phone] Referring Provider: Imer Scott, [address] [place] [address] [address], [place], [address]. tel:[phone] [address], [place], [place], [address], tel:[phone] [place] No Information 0 3 Maru Cancino. [address] [place] [address], [address], [place], [address], [place]. tel:[phone] Referring Provider: Imer Scott, [address] [place] [address] [address], [place], [address]. tel:[phone], [place], [place], [address], [place] tel:[phone] [place] No Information 3 Maru Cancino. [address] [place] [address], [address], [place], [address], [place]. tel:[phone] Referring Provider: Imer Scott, [address] [place] [address] [address], [place], [address]. tel:[phone], [place], [place], [address], tel:[phone] [place] No Information 3 Maru Cancino. [address] [place] [address], [address], [place], [address], [place]. tel:[phone] Referring Provider: Imer Scott, [address] [place] [address] [address], [place], [address]. tel:[phone], [place], [place], [address], tel:[phone] [place] No Information May-0 8 3 Maru Cancino. [address] [facility], [address], [place], [address], [place]. tel:[phone] Referring Provider: Imer Scott, [address] [place] [address] [address], [place], [address]. tel:[phone] [address], [place], [place], [address], tel:[phone] [place] No Information May-0 4- 3 Maru Cancino. [address] [place] [address], [address], [place], [address], [place]. tel:[phone] Referring Provider: Imer Scott, [address] [place] [address] [address], [place], [address]. tel:[phone] [address], [place], [place], [address], [place] tel:[phone] [place] No Information May-0 1-202 3 Short Brandy. . Referring Provider: Imer Scott, [address] [place] [address] [address], [place], [address]. tel:[phone], [place], [place], [address], [place] tel:[phone] [place] No Information Apr-2 3 Maru Cancino. [address] [place] [address], [address], [place], [address], [place]. tel:[phone] Referring Provider: Imer Scott, [address] [place] [address] [address], [place], [address]. tel:[phone], [place], [place], [address], [place] tel:[phone] [place] No Information Apr-2 3 Maru Cancino. [address] [place] [address], [address], [place], [place], [facility], [place]. tel:[phone] Referring Provider: Imer Scott, [address] [place] [address] [address], [place], [address]. tel:[phone] [facility] [address], [place], [place], [address], [place] tel:[phone] [place] No Information Apr-2 - 3 Short Brandy. . Referring Provider: Imer Scott, [address] [place] [address] [address], [place], [address]. tel:[phone] [facility] [address] [place], [place] [address], [place], [place], [address], tel:[phone] [place] No Information Apr-1 3 Maru Cancino. [address] [place] [address], [address], [place], [facility], [place]. tel:[phone] Referring Provider: Imer Scott, [address] [place] [address] [address], [place], [address]. tel:[phone] [facility] [address] [place], [place] [address], [place], [place], [address], [place] tel:[phone] [place] No Information Apr-1 3 Maru Cancino. [address] [place] [address], [address], [place], [address], [place]. tel:[phone] Referring Provider: Imer Scott, [address] [place] [address] [address], [place], [address]. tel:[phone] [address], [place], [place], [address], [place] tel:[phone] [place] No Information Apr-0 3 Maru Cancino. [address] [place] [address], [address], [place], [address], [place]. tel:[phone] Referring Provider: Imer Scott, 4 [facility] [address], [place], [address]. tel:[phone], [place], [place], [address], [place] tel:[phone] [place] No Information Apr-0 3-202 3 Maru Cancino. [address] [facility], [address], [place], [address], [place]. tel:[phone] Referring Provider: Imer Scott, 4 [facility] [address], [place], [address]. tel:[phone], [place], [place], [address], [place] tel:[phone] [place] No Information Mar-3 0-202 3 Maru Cancino. [address] [place] [address], [address], [place], [address], [place]. tel:[phone] Referring Provider: Imer Scott, 4 [facility] [address], [place], [address]. tel:[phone], [place], [place], [address], [place] tel:[phone] [place] No Information Mar-2 7-202 3 Maru Cancino. [address] [place] [address], [address], [place], [address], [place]. tel:[phone] Referring Provider: Imer Scott, [address] [place] [address] [address], [place], [address]. tel:[phone], [place], [place], [address], [place] tel:[phone] [place] No Information Mar-2 3-202 3 Maru Cancino. [address] [place] [address], [address], [place], [address], [place]. tel:[phone] Referring Provider: Imer Scott, [address] [place] [address] [address], [place], [address]. tel:[phone] [facility], [address] [place] [address] [address], [place], [place], [address], [place] tel:[phone] [place] No Information Mar-2 0-202 3 Maru Cancino. [address] [facility], [address], [place], [place], [facility], . tel:[phone] Referring Provider: Imer Scott, [address] [place] [address] [address], [place], [address]. tel:[phone] [address], [place], [place], [address], tel:[phone] [place] No Information Mar-1 7-202 3 Maru Cancino. [address] [place] [address], [address], [place], [facility], . tel:[phone] Referring Provider: Imer Scott, [address] [place] [address] [address], [place], [address]. tel:[phone] [address], [place], [place], [address], tel:[phone] [place] No Information Mar-1 3-202 3 Maru Cancino. [address] [place] [address], [address], [place], [facility], [place]. tel:[phone] Referring Provider: Imer Scott, [address] [place] [address] [address], [place], [address]. tel:[phone] [facility] [address] [place], [place] [address], [place], [address], [place] tel:[phone] [place] No Information Mar-0 9-202 3 Short Brandy. . Referring Provider: Imer Scott, [address] [place] [address] [address], [place], [address]. tel:[phone], [place], [place], [address], tel:[phone] [place] No Information Feb-0 6-202 3 Garrels Zaida. . Referring Provider: Imer Scott, 4 [facility] [address], [place], [address]. tel:[phone] [facility], [address], [place], [place], [address], [place] tel:[phone] [place] No Information 3 Chema Cerda. . Referring Provider: Imer Scott, 4 [facility] [address], [place], [address]. tel:[phone] [facility], [place], [place], [address], [place] tel:[phone] [place] No Information 3 Rashid Rangel. . Referring Provider: Imer Scott, [address] [place] [address] [address], [place], [address]. tel:[phone] [facility], [address], [place], [place], [address], [place] tel:[phone] [place] No Information 3 Maru Cancino. [address] [place] [address], [address], [place], [facility], [place]. tel:[phone] Referring Provider: Imer Scott, [address] [place] [address] [address], [place], [address]. tel:[phone] [facility], [place], [place], [address], [place] tel:[phone] [place] No Information 3 Susie Chiu. . Referring Provider: Imer Scott, 4 [facility] [address], [place], [address]. tel:[phone] [facility], [place], [place], [address], [place] tel:[phone] [place] No Information 3 Rashid Rangel. . Referring Provider: Imer Scott, 4 [facility] [address], [place], [address]. tel:[phone] [facility], [place], [place], [address], [place] tel:[phone] [place] No Information 3 Hisky Aram. . Referring Provider: Imer Scott, 4 [facility] [address], [place], [address]. tel:[phone] [facility], [address], [place], [place], [address], [place] tel:[phone] [place] No Information 3 Maru Cancino. [address] [facility], [address], [place], [address], [place]. tel:[phone] Referring Provider: Imer Scott, 4 [facility] [address], [place], [address]. tel:[phone] [facility], [address], [place], [place], [address], [place] tel:[phone] [place] No Information 3 Hisky Aram. . Referring Provider: Imer Scott, 4 [facility] [address], [place], [address]. tel:[phone] [facility], [address], [place], [place], [address], [place] tel:[phone] [place] No Information 3 Hisky Aram. . Referring Provider: Imer Scott, 4 [facility] [address], [place], [address]. tel:[phone] [facility] [address], [place], [place], [address], [place] tel:[phone] [place] No Information 2 Maru Cancino. [address] [facility], [address], [place], [address], [place]. tel:[phone] Referring Provider: Imre Scott, 4 [facility] [address], [place], [address]. tel:[phone] [facility], [address], [place], [place], [address], [place] tel:[phone] [place] No Information 2 Maru Cancino. [address] [facility], [address], [place], [address], [place]. tel:[phone] Referring Provider: Imer Scott, [address] [place] [address] [address], [place], [address]. tel:[phone] [facility], [facility] [address], [place], [place], [address], [place] tel:[phone] [place] No Information Dec-2 2 Maru Cancino. [address] [facility], [address], [place], [address], [place]. tel:[phone] Referring Provider: Imer Scott, 4 [facility] [address], [place], [address]. tel:[phone] [facility], [facility] [address], [place], [place], [address], [place] tel:[phone] [place] No Information Dec- 2 Maru Cancino. [address] [facility], [address], [place], [address], [place]. tel:[phone] Referring Provider: Imer Scott, [address] [place] [address] [address], [place], [address]. tel:[phone] [facility] [address], [place], [place], [address], [place] tel:[phone] [place] No Information Dec-1 2 Susie Chiu. . Referring Provider: Imer Scott, 4 [facility] [address], [place], [address]. tel:[phone] [facility] [address], [place], [place], [address], [place] tel:[phone] [place] No Information Dec- 2 Chema Cerda. . Referring Provider: Imer Scott, 4 [facility] [address], [place], [address]. tel:[phone] [facility] [address], [place], [place], [address], [place] tel:[phone] [place] No Information 0 2 Maru Cancino. [address] [facility], [address], [place], [address], [place]. tel:[phone] Referring Provider: Imer Scott, 4 [facility] [address], [place], [address]. tel:[phone] [facility] [address], [place], [place], [address], [place] tel:[phone] [place] No Information 2 Susie Aram. . Referring Provider: Imer Scott, [address] [place] [address] [address], [place], [address]. tel:[phone] [facility] [address], [place], [place], [address], [place] tel:[phone] [place] Low back painPain in right hipWeakfloyd memorial hospital and health servicesOth symptoms and signs involving the musculoskeletal system December- 0 9 Maru Cancino. [address] [place] [address], [address], [place], [address], [place]. tel:[phone] [facility] [address], [place], [place], [address], [place] tel:[phone] [place] Low back painPain in right hipWeakfloyd memorial hospital and health servicesOth symptoms and signs involving the musculoskeletal system December-0 9 Maru Cancino. [address] [facility], [address], [place], [address], [place]. tel:[phone], [place], [place], [address], [place] tel:[phone] [place] Low back painPain in right hipWeakfloyd memorial hospital and health servicesOth symptoms and signs involving the musculoskeletal system Nov-2 9 Maru Cancino. [address] [facility], [address], [place], [address], [place]. tel:[phone] [place] [address] [address], [place], [place], [address], [place] tel:[phone] [place] Low back painPain in right hipWeaknessOth symptoms and signs involving the musculoskeletal system Apr-2 6-201 9 Maru Cancino. [address] [facility], [address], [place], [address], [place]. tel:[phone] [place] [address], [facility] [address], [place], [place], [address], [place] tel:[phone] [place] Low back painPain in right hipWeaknessOth symptoms and signs involving the musculoskeletal system Apr-2 4-201 9 Orlando Mueller. [address] [facility], [address], [place], [address], [place]. tel:[phone] [place] [address] [facility] [address], [place], [place], [address], [place] tel:[phone] [place] Low back painPain in right hipWeakfloyd memorial hospital and health servicesOth symptoms and signs involving the musculoskeletal system Apr-1 9-201 9 Maru Cancino. [address] [facility], [address], [place], [address], [place]. tel:[phone] [place] [address] [address], [place], [place], [address], [place] tel:[phone] [place] Low back painPain in right hipWeaknessOth symptoms and signs involving the musculoskeletal system Apr-1 2-201 9 Maru Cancino. [address] [place] [address], [address], [place], [address], [place]. tel:[phone] [place] [address] [place] [address], [place], [place], [address], [place] tel:[phone] [place] Low back painPain in right hipWeaknessOth symptoms and signs involving the musculoskeletal system Apr-1 0-201 9 Kael Hodge. . [facility], [place], [place], [address], [place] tel:[phone] [place] Pain in right hipOther abnormalities of gait and mobilityMuscle weakness (generalized)Abn ormal postureStiffness of right hip, not elsewhere classified 8 Montez Scout. . [facility], [place], [place], [address], [place] tel:[phone] [place] Pain in right hipOther abnormalities of gait and mobilityMuscle weakness (generalized)Abn ormal postureStiffness of right hip, not elsewhere classified 8 Maru Cancino. [address] [facility], [address], [place], [address], [place]. tel:[phone] [place] [address] [address], [place], [place], [address], [place] tel:[phone] [place] Pain in right hipOther abnormalities of gait and mobilityMuscle weakness (generalized)Abn ormal postureStiffness of right hip, not elsewhere classified 8 Maru Cancino. [address] [facility], [address], [place], [address], [place]. tel:[phone] [place] [address] [address], [place], [place], [address], [place] tel:[phone] [place] Pain in right hipOther abnormalities of gait and mobilityMuscle weakness (generalized)Abn ormal postureStiffness of right hip, not elsewhere classified 8 Maru Cancino. [address] [facility], [address], [place], [address], [place]. tel:[phone] [place], [place] [address] [address], [place], [place], [address], [place] tel:[phone] [place] Pain in right hipOther abnormalities of gait and mobilityMuscle weakness (generalized)Abn ormal postureStiffness of right hip, not elsewhere classified 8 Montez Scout. . [facility], [place], [place], [address], [place] tel:[phone] [place] Pain in right hipOther abnormalities of gait and mobilityMuscle weakness (generalized)Abn ormal postureStiffness of right hip, not elsewhere classified 8 Maru Cancino. [address] [facility], [address], [place], [address], [place]. tel:[phone] [place] [address] [place] [address], [place], [place], [address], [place] tel:[phone] [place] Pain in right hipOther abnormalities of gait and mobilityMuscle weakness (generalized)Abn ormal postureStiffness of right hip, not elsewhere classified 8 Maru Cancino. [address] [facility], [address], [place], [address], [place]. tel:[phone] [place] [address] [place] [address], [place], [place], [address], [place] tel:[phone] [place] Pain in right hipOther abnormalities of gait and mobilityMuscle weakness (generalized)Abn ormal postureStiffness of right hip, not elsewhere classified 8 Maru Cancino. [address] [facility], [address], [place], [address], [place]. tel:[phone] [place] [address] [address], [place], [place], [address], [place] tel:[phone] [place] Pain in right hipOther abnormalities of gait and mobilityMuscle weakness (generalized)Abn ormal postureStiffness of right hip, not elsewhere classified 8 Maru Cancino. [address] [facility], [address], [place], [address], [place]. tel:[phone] [place] [address] [address], [place], [place], [address], [place] tel:[phone] [place] Pain in right hipOther abnormalities of gait and mobilityMuscle weakness (generalized)Abn ormal postureStiffness of right hip, not elsewhere classified 8 Maru Cancino. [address] [facility], [address], [place], [address], [place]. tel:[phone] [place], [place] [address] [address], [place], [place], [address], [place] tel:[phone] [place] Pain in right hipOther abnormalities of gait and mobilityMuscle weakness (generalized)Abn ormal postureStiffness of right hip, not elsewhere classified 8 Maru Cancino. [address] [facility], [address], [place], [address], [place]. tel:[phone] [place] [address] [address], [place], [place], [address], [place] tel:[phone] [place] Pain in right hipOther abnormalities of gait and mobilityMuscle weakness (generalized)Abn ormal postureStiffness of right hip, not elsewhere classified 8 Maru Cancino. [address] [place] [address], [address], [place], [address], [place]. tel:[phone] [place], [place] [address] [address], [place], [place], [address], [place] tel:[phone] [place] Pain in right hipOther abnormalities of gait and mobilityMuscle weakness (generalized)Abn ormal postureStiffness of right hip, not elsewhere classified 8 Maru Cancino. [address] [place] [address], [address], [place], [address], [place]. tel:[phone] [place], [place] [address] [address], [place], [place], [address], [place] tel:[phone] [place] Pain in right hipOther abnormalities of gait and mobilityMuscle weakness (generalized)Abn ormal postureStiffness of right hip, not elsewhere classified 8 Maru Cancino. [address] [facility], [address], [place], [address], [place]. tel:[phone] [place], [place] [address] [address], [place], [place], [address], [place] tel:[phone] [place] Pain in right hipOther abnormalities of gait and mobilityMuscle weakness (generalized)Abn ormal postureStiffness of right hip, not elsewhere classified 8 Maru Cancino. [address] [facility], [address], [place], [address], [place]. tel:[phone] [facility], [place], [place], [address], [place] tel:[phone] [place] Pain in right hipOther abnormalities of gait and mobilityMuscle weakness (generalized)Abn ormal postureStiffness of right hip, not elsewhere classified 8 Maru Cancino. [address] [facility], [address], [place], [address], [place]. tel:[phone] [facility], [place], [place], [address], [place] tel:[phone] [place] Pain in right hipOther abnormalities of gait and mobilityMuscle weakness (generalized)Abn ormal postureStiffness of right hip, not elsewhere classified Maru Cancino. [address] [facility], [address], [place], [address], [place]. tel:[phone] [facility], [place], [place], [address], [place] tel:[phone] [place] Pain in right hipOther abnormalities of gait and mobilityMuscle weakness (generalized)Abn ormal postureStiffness of right hip, not elsewhere classified Maru Cancino. [address] [facility], [address], [place], [address], [place]. tel:[phone] [facility], [place], [place], [id number], [place] tel:[phone] [place] Pain in right hipOther abnormalities of gait and mobilityMuscle weakness (generalized)Abn ormal postureStiffness of right hip, not elsewhere classified 8 Aury Oswald. [address] [place], [address], [place]. tel:[phone] [facility], [place], [place], [address], [place] tel:[phone] [place] Pain in right hipOther abnormalities of gait and mobilityMuscle weakness (generalized)Abn ormal postureStiffness of right hip, not elsewhere classified 0 8 Schniers Darek. [address] [facility] [address], [place], [address], [place]. tel:[phone] [facility], [place], [place], [address], [place] tel:[phone] [place] Pain in right hipOther abnormalities of gait and mobilityMuscle weakness (generalized)Abn ormal postureStiffness of right hip, not elsewhere classified 0 8 Schniers Darek. [address] [place], [address], [place]. tel:[phone] [facility], [place], [place], [address], [place] tel:[phone] [place] Pain in right hipOther abnormalities of gait and mobilityMuscle weakness (generalized)Abn ormal postureStiffness of right hip, not elsewhere classified Apr-2 7 8 Schniers Darek. [address] [facility], [place], [address], [place]. tel:[phone] [facility], [place], [place], [address], [place] tel:[phone] [place] Pain in right hipOther abnormalities of gait and mobilityMuscle weakness (generalized)Abn ormal postureStiffness of right hip, not elsewhere classified Apr-2 4- 8 Schniers Darek. [address] [facility] [address], [place], [address], [place]. tel:[phone] [facility], [place], [place], [address], [place] tel:[phone] [place] Pain in right hipOther abnormalities of gait and mobilityMuscle weakness (generalized)Abn ormal postureStiffness of right hip, not elsewhere classified Apr-2 0-201 8 Schniers Darek. [address] [facility] [address], [place], [address], [place]. tel:[phone] [place] [address] [address], [place], [place], [address], [place] tel:[phone] [place] No Information May-1 1-201 7 Schranck Barak. [address] [place] [address], [address], [place], [address], [place]. tel:[phone] [place] [address] [address], [place], [place], [address], [place] tel:[phone] [place] No Information May-0 8-201 7 Schranck Barak. [address] [place] [address], [facility] [address], [place], [address], [place]. tel:[phone] [place] [address] [address], [place], [place], [address], tel:[phone] [place] No Information May-0 5-201 7 Schranck Barak. [address] [place] [address], [address], [place], [address], [place]. tel:[phone] [place] [address] [address], [place], [place], [address], [place] tel:[phone] [place] No Information May-0 1-201 7 Schranck Barak. [address] [place] [address], [facility] [address], [place], [address], [place]. tel:[phone] [place] [address] [address], [place], [place], [address], [place] tel:[phone] [place] No Information Apr-2 7-201 7 Schranck Barak. [address] [place] [address], [address], [place], [address], [place]. tel:[phone] [place] [address] [address], [place], [place], [address], [place] tel:[phone] [place] No Information Apr-2 4-201 7 Schranck Barak. [address] [place] [address], [address], [place], [address], [place]. tel:[phone] [place] [address] [address], [place], [place], [address], [place] tel:[phone] [place] No Information Apr-1 7-201 7 Maru Cancino. [address] [place] [address], [address], [place], [place], [facility], [place]. tel:[phone] [place] [address] [address], [place], [place], [address], [place] tel:[phone] [place] No Information Apr-1 3-201 7 Maru Cancino. [address] [place] [address], [address], [place], [facility], [place]. tel:[phone] [place] [address] [address], [place], [place], [address], [place] tel:[phone] [place] No Information Apr-1 1-201 7 Maru Cancino. [address] [place] [address], [address], [place], [facility], [place]. tel:[phone] [place] [address] [address], [place], [place], [address], [place] tel:[phone] [place] No Information Apr-0 6-201 7 Orlando Mueller. [address] [place] [address], [address], [place], [facility], [place]. tel:[phone] [place] [address] [address], [place], [place], [address], [place] tel:[phone] [place] No Information Apr-0 4-201 7 Maru Cancino. [address] [place] [address], [address], [place], [facility], [place]. tel:[phone] [place] [address] [address], [place], [place], [address], [place] tel:[phone] [place] No Information Mar-3 1-201 7 Maru Cancino. [address] [place] [address], [address], [place], [address], [place]. tel:[phone] [place] [address] [address], [place], [place], [address], [place] tel:[phone] [place] No Information Mar-2 9-201 7 Maru Barak. [address] [place] [address], [address], [place], [address], [place]. tel:[phone] [place] [address] [address], [place], [place], [address], [place] tel:[phone] [place] No Information Mar-2 3-201 7 Howardanikaanthony Cancino. [address] [place] [address], [address], [place], [address], [place]. tel:[phone] [place] [address], [address] [place] [address] [address], [place], [place], [address], [place] tel:[phone] [place] No Information Mar-2 0-201 7 Schnoelle Barak. [address] [place] [address], [address], [place], [facility], [place]. tel:[phone] [place] [address] [address], [place], [place], [address], [place] tel:[phone] [place] No Information Mar-1 5-201 7 Maru Barak. [address] [place] [address], [address], [place], [address], [place]. tel:[phone] [place] [address] [address], [place], [place], [address], [place] tel:[phone] [place] No Information Mar-1 3-201 7 Maru Barak. [address] [place] [address], [address], [place], [address], [place]. tel:[phone] [place] [address] [address], [place], [place], [address], [place] tel:[phone] [place] No Information Mar-0 8-201 7 Orlando Mueller. [address] [place] [address], [address], [place], [facility], [place]. tel:[phone] [place] [address] [address], [place], [address], [place] tel:[phone] [place] Stiffness of unspecified joint, not elsewhere classifiedMyalgi aLow back pain Mar-0 6-201 7 Alfaro-Velazquez Ervin. [address] [place] [address], [address], [place], [address], [place]. tel:[phone] [place] [address] [address], [place], [place], [address], [place] tel:[phone] [place] No Information Dec-0 5-201 6 Alfaro-Velazquez Ervin. [address] [place] [address], [address], [place], [address], [place]. tel:[phone] [place] [address] [address], [place], [place], [address], [place] tel:[phone] [place] No Information Nov-3 0-201 6 Alfaro-Velazquez Ervin. [address] [place] [address], [address], [place], [address], [place]. tel:[phone] [place] [address] [address], [place], [place], [address], [place] tel:[phone] [place] No Information Nov-2 3-201 6 Alfaro-Velazquez Ervin. [address] [place] [address], [address], [place], [address], [place]. tel:[phone] [place] [address] [address], [place], [place], [address], [place] tel:[phone] [place] No Information Nov-1 6-201 6 Alfaro-Velazquez Ervin. [address] [place] [address], [address], [place], [address], [place]. tel:[phone] [place] [address] [address], [place], [place], [address], [place] tel:[phone] [place] No Information Nov-1 4-201 6 Alfaro-Velazquez Ervin. [address] [place] [address], [address], [place], [address], [place]. tel:[phone] [place] [address] [address], [place], [place], [address], [place] tel:[phone] [place] No Information Nov-0 9-201 6 Alfaro-Velazquez Ervin. [address] [place] [address], [address], [place], [address], [place]. tel:[phone] [place] [address] [address], [place], [place], [address], [place] tel:[phone] [place] No Information Nov-0 7-201 6 Alfaro-Velazquez Ervin. [address] [place] [address], [address], [place], [address], [place]. tel:[phone] [place] [address] [address], [place], [place], [address], [place] tel:[phone] [place] No Information Nov-0 2-201 6 Alfaro-Velazquez Ervin. [address] [place] [address], [address], [place], [address], [place]. tel:[phone] [place] [address] [address], [place], [place], [address], [place] tel:[phone] [place] No Information Oct-3 1-201 6 Alfaro-Velazquez Ervin. [address] [place] [address], [address], [place], [address], [place]. tel:[phone] [place] [address] [address], [place], [place], [address], [place] tel:[phone] [place] No Information Oct-2 6-201 6 Alfaro-Velazquez Ervin. [address] [place] [address], [address], [place], [address], [place]. tel:[phone] [place] [address] [address], [place], [place], [address], [place] tel:[phone] [place] No Information Oct-2 4-201 6 Alfaro-Velazquez Ervin. [address] [place] [address], [address], [place], [address], [place]. tel:[phone] [place] [address] [address], [place], [place], [address], [place] tel:[phone] [place] No Information Oct-1 9-201 6 Alfaro-Velazquez Ervin. [address] [place] [address], [address], [place], [address], [place]. tel:[phone] [place] [address] [address], [place], [place], [address], [place] tel:[phone] [place] No Information Oct-1 2-201 6 Alfaro-Velazquez Ervin. [address] [place] [address], [address], [place], [address], [place]. tel:[phone] [place] [address] [address], [place], [place], [address], [place] tel:[phone] [place] No Information Oct-1 0-201 6 Alfaro-Velazquez Ervin. [address] [place] [address], [address], [place], [address], [place]. tel:[phone] [place] [address] [address], [place], [place], [address], [place] tel:[phone] [place] No Information Oct-0 5-201 6 Alfaro-Velazquez Ervin. [address] [place] [address], [address], [place], [address], [place]. tel:[phone] [place] [address] [address], [place], [place], [address], [place] tel:[phone] [place] No Information Oct-0 3-201 6 Alfaro-Velazquez Ervin. [address] [place] [address], [address], [place], [address], [place]. tel:[phone] [place] [address] [address], [place], [place], [address], [place] tel:[phone] [place] No Information Sep-3 0-201 6 Alfaro-Velazquez Ervin. [address] [place] [address], [address], [place], [address], [place]. tel:[phone] [place] [address] [address], [place], [place], [address], [place] tel:[phone] [place] No Information Sep-2 8-201 6 Alfaro-Velazquez Ervin. [address] [place] [address], [address], [place], [address], [place]. tel:[phone] [place] [address] [address], [place], [place], [address], [place] tel:[phone] [place] No Information Sep-2 1-201 6 Alfaro-Velazquez Ervin. [address] [place] [address], [address], [place], [address], [place]. tel:[phone] [place] [address] [address], [place], [place], [address], [place] tel:[phone] [place] No Information Sep-1 9-201 6 Alfaro-Velazquez Ervin. [address] [place] [address], [address], [place], [address], [place]. tel:[phone] [place] [address] [address], [place], [place], [address], [place] tel:[phone] [place] No Information Sep-1 4-201 6 Alfaro-Velazquez Ervin. [address] [place] [address], [address], [place], [address], [place]. tel:[phone] [place] [address] [address], [place], [place], [address], [place] tel:[phone] [place] No Information Sep-1 2-201 6 Alfaro-Velazquez Ervin. [address] [place] [address], [address], [place], [address], [place]. tel:[phone] [place] [address] [address], [place], [place], [address], [place] tel:[phone] [place] No Information Sep-0 9-201 6 Russell Lyons. [address] [facility], [address], [place], [place], [facility], [place]. tel:[phone], [id number], tel:[phone] [place] No Information 6 AlfaroCaroMarcus Mueller. [address] [facility], [address], [place], [place], [facility], . tel:[phone] [address], [place], [place], [address], tel:[phone] [place] Muscle weakness (generalized)Uns pecified abnormalities of gait and mobilityOther malaiseStiffness of right hip, not elsewhere classifiedOther chronic painPain in unspecified hip 6 Orlando Nievesla. [address] [facility], [address], [place], [address], . tel:[phone] Family History Family Member Type Diagnosis Age At Onset No Information Payers Payer name Insurance type Covered libertarian ID Authoriza tion(s) [facility] Medicare Solutions [id number] Medicaid OON Write Off CI 00 Social [...]
[2025-02-04 18:45] VITALS: BP 152/80; PULSE 85; RESP 20; TEMP 36.9; O2SAT 99
== END 2025-02-04 19:41 | disposition home or self-care (01) ==
PROVIDERS: Emergency Provider Nurse Practitioner Family; PCP Family Medicine
DX: S80.01XA Contusion of right knee, initial encounter (principal); S70.01XA Contusion of right hip, initial encounter; W18.09XA Striking against other object with subsequent fall, initial encounter; Z96.643 Presence of artificial hip joint, bilateral; I10 Essential (primary) hypertension; J45.909 Unspecified asthma, uncomplicated; E11.9 Type 2 diabetes mellitus without complications; F12.90 Cannabis use, unspecified, uncomplicated
CPT/HCPCS: 73502; 73564; 99214; G0463

== ENCOUNTER 2025-06-28 16:42 | Emergency (ER) | payer MEDICARE, MEDICAID, SELFPAY ==
--- OUTSIDE RECORDS SUMMARY | 2025-06-28 16:46 | XMS_ITS | Clinical Summary ---
Author Organization [facility] Address [address] [place] [address] Care Team Providers Care Journalism Instructor Name Role Phone Michael Arroyo APRN-OBSTETRICAL ANESTHESIOLOGIST Primary Care Pro vider Niurka Byrne MD Unavailable Source Comments [facility],non-owned Affiliates and Associated Physician Practices is amultiple site organization consisting of ambulatory clinics and hospital sitesin [place], [place], [place] and [place]. This disclosure is being madepursuant to the Care Everywhere program and may not contain all information available regarding this patient. Last updated 18.[facility] Allergies No known active allergies Medications * Be aware that medications may not be up to date on this document. Alwaysverify current medications with the patient. citalopram (CELEXA) 40 MG tablet Take 1 (one) tablet by mouth once daily Active omeprazole (PRILOSEC) 20 MG capsule Take 1 (one) capsule by mouth daily before breakfast 30 capsule 2 Active HYDROcodone-zulma taminophen (Cutler) 5-325 MG tablet Take 1 (one) tablet by mouth every 8 hours as needed 2 Active Multiple Vitamins-Minera ls (BARIATRIC MULTIVITAMINS/I HELADIO PO) Active Calcium Citrate-Vitamin D (CALCIUM CITRATE CHEWY BITE PO) Active Active Problems Problem Noted Date Diagnosed Date S/P gastric bypass 12/13/2021 Morbid obesity due to excess calories 07/05/2016 HTN (hypertension) 07/05/2016 Type 2 diabetes mellitus without complication Overview (05/26/2025): IMO 05/26/2025 Hypercholesteremia 07/05/2016 INGA (obstructive sleep apnea) 07/05/2016 [...] Health Maintenance Due Date Last Done Comments HEPATITIS C SCREENING 06/09/1999 DTAP/TDAP/TD VACCINES (1 - Tdap) 2000 HEPATITIS B VACCINE (1 of 3 - 19+ 3-dose series) 2000 PNEUMOCOCCAL VACCINE (1 of 2 - PCV) 2000 HPV VACCINE (1 - 3-dose SCDM series) 2008 DIABETES RETINOPATHY SCREENING 03/03/2021 DIABETES-FOOT EXAM WITH MONOFILAMENT 03/03/2021 DIABETES-STATIN 2021 DIABETES-HGB A1C 05/17/2022 11/14/2021 DIABETES-SERUM CREATININE 05/07/20242022, 06/15/2022, 12/14/2021, Additional history exists DEPRESSION SCREENING 08/26/2024 DIABETES - URINE PROTEIN SCREENING 08/26/2024 MEDICARE AWV CALENDAR YEAR 2024 MAMMOGRAM 12/18/2024 12/18/2022, 11/22/2022 PAP SMEAR 03/27/2025 03/27/2022 COVID-19 VACCINE ( - season) 2025 INFLUENZA VACCINE (#1) 2025 09/23/2014 ZOSTER VACCINE (1 of 2) 2031 HIV SCREENING Completed 11/06/2022, 03/31/2022 HIB VACCINE [...] 2 diabetes mellitus without complication, unspecified whether long wall shear operator insulin use Morbid obesity Preop testing Morbid [...] Resulting Agency Comment [facility]: [facility] [address] [id number] Julia Silva APRN-OBSTETRICAL ANESTHESIOLOGIST LAB - CHEMISTRY EVY WATSON Final Result [facility] ACCOUNT BILL [address] [place] [address] * (ABNORMAL) HEMOGLOBIN A1C (HgbA1C) (11/14/2021 2:05 PM CDT) Pathologist [facility] Hemoglobin A1c 7.3(H) 4.8 - 5.6 % [facility] INSURANCE BILL Comment: . Prediabetes: 5.7 - 6.4 Diabetes: >6.4 Glycemic control for adults with diabetes: <7.0 Blood BLOOD SPECIMEN / Unknown 11/14/2021 2:05 PM CDT 11/14/2021 Narrative Resulting Agency Comment Lab [facility]: [facility] [address] [id number] us Robin Almeida MD LAB - CHEMISTRY ORDERABLES Fi nal Result [facility] INSURANCE BILL [address] [place] [address] from Last 3 Months or Most Recently Relevant to Health Maintenance Insurance [facility] MEDICAID [place] [address] [place] [id number] [facility] Advance Directives * Full Code (Latest Code Status on File) Date Activated Date Inactivated Comments 12/13/2021 5:01 PM 12/14/2021 7:09 PM Care Teams Journalism Instructor Relationship Specialty Start Date End Date Michael Arroyo, LIZETH-OBSTETRICAL ANESTHESIOLOGIST PCP - General Nurse Practitioner 11/29/21 Niurka Byrne MD 11/29/21
--- OUTSIDE RECORDS SUMMARY | 2025-06-28 16:46 | XMS_ITS | Encounter Summary ---
Author Organization [facility] Address [address] [place] [address] Phone Care Team Providers Care Cryogenics Engineer Name Role Phone Michael Arroyo APRN, LYN Primary Care Pr ovider Niurka Byrne MD Unavailable Ash PRO MD, Courtney Unavailable [phone] Reason for Visit * Reason Comments Medication Refill Encounter Details Date Type Department Care Team (Late st Contact Info) Description 08/08/2021 Refill [facility] - Family Medicine [facility] [address] [place] [id number] Michael Arroyo APRN, BLIND HANGER [address] [address] Medication Refill Social History Tobacco Use Types [...] COVID-19? No / Unsure 07/14/2021 12:12 PM HOOKER LASTER documented as of this encounter Miscellaneous Notes * Telephone Encounter - Komal Ortega RN - 08/08/2021 12:52 PM CST Medication failed the protocol, provider to review and approve the medication order if appropriate. Requested Prescriptions Pending Prescriptions Disp Refills ergocalciferol (VITAMIN D) 87143 UNIT Capsule [Pharmacy Med Name: VITAMIN D2 1.25MG(50,000 UNIT)] 4Capsule 2 Sig: TAKE 1 CAPSULE BY MOUTH ONE TIME PER WEEK Vitamin Supplements (Adult) Protocol Passed - 08/08/2021 8:33 AM Passed - Visit with relevant provider in past 12 months or upcoming 90 days Recent Visits Date Type Provider Dept 05/31/21 Telemedicine Michael Arroyo APRN, CNP [facility] 01/11/21 Telemedicine Michael Arroyo APRN, CNP [facility] 11/08/20 Office Visit Michael Arroyo APRN, CNP [facility] 10/20/20 Telemedicine Michael Arroyo APRN, L[facility] 08/25/20 Telemedicine Michael Arroyo APRN, L[place] [facility] [place] Showing recent visits within past 365 days and meeting all other requirements Future Appointments No visits were found meeting these conditions. Showing future appointments within next 90 days and meeting all other requirements Passed - Vitamin D less than 1.25mg ER LASTER documented in this encounter Plan of Treatment Not on file documented as of this encounter Visit Diagnoses Diagnosis Vitamin D deficiency Unspecified vitamin D deficiency documented in this encounter Care Teams Cryogenics Engineer Relationship Specialty Start Date End Date Michael Arroyo APRN, CNP [address] [address] PCP - General Certified Nurse Practitioner 03/02/20 Niurka Byrne MD #[facility] [address] [phone] Consulting Physician Endocrinology 09/13/20 Marium Aleman III, MD [address] [place] [address] Consulting Physician Urology 02/25/23 documented as of this encounter
--- OUTSIDE RECORDS SUMMARY | 2025-06-28 16:46 | XMS_ITS | Encounter Summary ---
Author Organization [facility] Address [address] [place] [address] Phone Care Team Providers Care Merchandise Distributor Name Role Phone Michael Arroyo APRN, LYN Primary Care Pr ovider Niurka Byrne MD Unavailable Ash PRO MD, Courtney Unavailable [phone] Reason for Visit * Reason Comments Medication Refill Encounter Details Date Type Department Care Team (Late st Contact Info) Description 10/27/2020 Refill [facility] - Family Medicine [facility] [address] [place] [id number] Michael Arroyo APRN, FERMENTING CELLARS SUPERVISOR #[address] [address] Medication Refill Social History Tobacco Use Types [...] COVID-19? No / Unsure 10/20/2020 2:23 PM MEDICAL CHIEF TECHNICIAN documented as of this encounter Miscellaneous Notes * Telephone Encounter - Lexie Jo RN - 10/27/2020 11:42 AM CST Sent to PCP CAL CHIEF TECHNICIAN * Telephone Encounter - Lexie Jo RN - 10/27/2020 11:41 AM CST Per nursing clinical judgement, provider to review and approve the medication(s) order(s) if appropriate. Last OV 10/20/20, F/U None, Last Rx 09/12/20 Lexie ESPINOZA Requested Prescriptions Pending Prescriptions Disp Refills ergocalciferol (VITAMIN D) 71564 UNIT Capsule [Pharmacy Med Name: VITAMIN D2 1.25MG(50,000 UNIT)] 4Capsule 2 Sig: TAKE 1 CAPSULE BY MOUTH ONE TIME PER WEEK Off-Protocol Failed - 10/27/2020 11:30 AM Failed - Medication not assigned to a protocol, review manually. Passed - Valid encounter within last 12 months Past Office Visits Recent Outpatient Visits 1 week ago Obstructive sleep apnea syndrome [facility] - Michael Philip APN, LYN 2 months ago Morbid (severe) obesity due to excess calories (HCC) [facility] Philip APN, LYN 7 months ago Essential hypertension [facility] Michael Philip APN, FERMENTING CELLARS SUPERVISOR Upcoming Appointments Future Appointments In 5 days Niurka Byrne MD [facility] Endocrinology - [facility] Arrive at: Virtual Visit PACK OUT OPERATOR - Recent and Past Visits Recent Visits Date Type Provider Dept 10/20/20 Telemedicine [facility]20 Telemedicine Michael [facility]o APN, C[facility] 03/02/20 Office Visit Michael Arroyo APN, CNP [facility] Showing recent visits within past 460 days with a meds authorizing provider and meeting all other requirements Future Appointments No visits were found meeting these conditions. Showing future appointments within next 90 days with a meds authorizing provider and meeting all other requirements CAL CHIEF TECHNICIAN documented in this encounter Plan of Treatment Not on file documented as of this encounter Visit Diagnoses Diagnosis Vitamin D deficiency Unspecified vitamin D deficiency documented in this encounter Care Teams Merchandise Distributor Relationship Specialty Start Date End Date Michael Arroyo APRN, FERMENTING CELLARS SUPERVISOR #2 [facility] [address] [place] [address] PCP - General Certified Nurse Practitioner 03/02/20 Niurka Byrne MD #2 [facility] [address] [place] [address] Consulting Physician Endocrinology 09/13/20 Marium Aleman III, MD [address]2 [place] [address] Consulting Physician Urology 02/25/23 documented as of this encounter
--- OUTSIDE RECORDS SUMMARY | 2025-06-28 16:46 | XMS_ITS | Encounter Summary ---
Author Organization [facility] Address [address] [place] [address] Phone Care Team Providers Care Fuller Brush Man Name Role Phone Michael Arroyo APRN, LYN Primary Care Pr ovider Niurka Byrne MD Unavailable Ash PRO MD, Courtney Unavailable [phone] Reason for Visit * Reason Comments Medication Refill Encounter Details Date Type Department Care Team (Late st Contact Info) Description 12/09/2023 Refill [facility] - Family Medicine [facility] [address] [place] [phone] Michael Arroyo APRN, IT TELECOM TECHNICIAN #[address] [address] Medication Refill Social History Tobacco Use Types [...] on filedocumented in this encounter Care Teams Fuller Brush Man Relationship Specialty Start Date End Date Michael Arroyo APRN, LYN #[address] [address] PCP - General Certified Nurse Practitioner 03/02/20 Niurka Byrne MD #[address] [phone] Consulting Physician Endocrinology 09/13/20 Marium Aleman III, MD [address] [place] [address] Consulting Physician Urology 02/25/23 documented as of this encounter
--- OUTSIDE RECORDS SUMMARY | 2025-06-28 16:46 | XMS_ITS | Encounter Summary ---
Author Organization [facility] Address [address] [place] [address] Phone Care Team Providers Care Christian Education Director Name Role Phone Michael Arroyo APRN, LYN Primary Care Pr ovider Niurka Byrne MD Unavailable Ash PRO MD, Courtney Unavailable [phone] Reason for Visit * Reason Comments Medication Refill Encounter Details Date Type Department Care Team (Late st Contact Info) Description 11/28/2021 Refill [facility] - Endocrinology [facility] [address] [place] [address] Niurka Byrne MD #[address] [address] Medication Refill Social History Tobacco [...] ??? Insulin Pen Needle (BD Pen Needle Davina 2nd Gen) 32G X 4 MM Misc [Pharmacy Med Name: BD DAVINA 2 GEN PEN NDL [id number]] 3 Sig: USE TO INJECT INSULIN FIVE TIMES DAILY Next appt: Message sent to schedule follow up. documented in this encounter Plan of Treatment Not on file documented as of this encounter Visit Diagnoses Not on filedocumented in this encounter Care Teams Christian Education Director Relationship Specialty Start Date End Date Michael Arroyo APRN, FINISHED GARMENT INSPECTOR #2 [facility] [address] [place] [address] PCP - General Certified Nurse Practitioner 03/02/20 Niurka Byrne MD #2 [facility] [address] [place] [address] Consulting Physician Endocrinology 09/13/20 Marium Aleman III, MD [address] [place] [address] Consulting Physician Urology 02/25/23 documented as of this encounter
--- OUTSIDE RECORDS SUMMARY | 2025-06-28 16:46 | XMS_ITS | Clinical Summary ---
Author Organization [facility] Address [address] [place] [address] Care Team Providers Care Siding Applicator Name Role Phone Michael Arroyo NP Primary Care Provider Imer Scott MD Unavailable [phone] Allergies Active Allergy Reactions Criticality Noted Date [...] daily before breakfast 30 capsule 06/20/20 24 Active benzonatate (TESSALON) 100 mg capsuleIndications :Cough [...] (11/13/2022): Added automatically from request for surgery [id number] Irregular periods 11/12/2022 Pre-eclampsia 11/12/2022 Arthritis of [...] (06/18/2022): Added automatically from request for surgery [id number] Primary osteoarthritis of right hip 05/16/2022 11/01/2022 [...] Headache, tensi on Hyperlipidemia Hyperlipidemia Diabetes mellitus Diabetes--hist ory of --no meds since 11/2021 Hypertension Hypertension his tory of --no meds since 2012 Type 2 diabetes mellitus Diabete s type 2; Comments: DNM 12/30/2014 - Arthritis Arthritis; Comme nts: DNM 12/30/2014 - Rhesus isoimmunization affec ting 10/21/2014 07/07/2014 Sleep apnea does use cpap Chronic bronchitis (HCC) hx of - -last had 2017 Anemia Bipolar disorder Depression Anxiety Lung disease COPD Lactose intolerance [...] on file Legal Sex Female 1:23 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 Gender Identity Not on file Sexual Orientation [...] 78.5 kg (173 lb) 07/22/2024 12:35 PM WARDROBE TECHNICIAN Height 167.6 cm (5' 6) 06/20/2024 12:03 [...] <65 (1 of 2 - PCV) 2000 HPV Vaccines (1 - 3-dose SCD M series) 2008 Lipid Panel 09/20/2017 09/20/2016, 01/24, 07/26/2015, Additional history exists Hemoglobin A1C 04/11/2023 10/12/2022, 05/27, 11/14/2021 Depression Screening 09/26/2023 09/26/2022 DTaP/Tdap/Td Vaccine (7 - Td or Tdap) 10/07/2024 10/07/2014, 06/05/1996, 01/15/1986, Additional history exists Influenza Vaccine (#1) 2025 09/23/2014 eGFR 06/20/2025 06/20/2024, 03/26, 10/22/2023, Additional history exists Breast Cancer Screening-Mammogram 07/06/2025 07/06/2024, 07/06/2024, 07/04/2023, Additional history exists Medical Devices Implanted Type Area Descriptive Catalog Librarian Device Identifier Shelf Expiration Date Model / Serial / Lot [employer]uy [employer] Pringle 52mm Sector Hip Shell Acetabular Gription Sterile Latex Free [id number] - [id number] Implanted:Qty: 1 on 07/04/2022 by Imer Scott MD at [facility] Left: Hip [employer] 05/25/2032 [id number] / / [id number] [employer] Pringle 52mm 36mm Hip Neutral Liner Acetabular Altrx Sterile Latex Free [id number] - [id number] Implanted:Qty: 1 on 07/04/2022 by Imer Scott MD at [facility] Left: Hip [employer] 05/25/2027 [id number] / / [id number] [employer] Actis 105mm Collar Hip 5 High Offset Stem Femoral [id number] - [id number] Implanted:Qty: 1 on 07/04/2022 by Imer Scott MD at [facility] Left: Hip [employer] 02/23/2032 [id number] / / [id number] [employer] Articul/Davie 36mm Cementless Hip +8.5mm 12/14 Taper Head Femoral Latex Free 1365-36-330 - [id number] Implanted:Qty: 1 on 07/04/2022 by Imer Scott MD at [facility] Left: Hip [employer] 04/25/2027 1365-36-330 / / [id number] [employer] Pringle 54mm Sector Hip Shell Acetabular Gription Sterile Latex Free [id number] - [id number] Implanted:Qty: 1 on 10/17/2022 by Imer Scott MD at [facility] Right: Hip [employer] [id number] 08/25/2032 [id number] / / [id number] [employer] Pringle 54mm 36mm Hip Neutral Liner Acetabular Altrx Sterile Latex Free [id number] - [id number] Implanted:Qty: 1 on 10/17/2022 by Imer Scott MD at [facility] Right: Hip [employer] [id number] 05/25/2027 [id number] / / [id number] [employer] Pringle 6.5mm 35mm Acetabular Cancellous Screw Bone Sterile 1217-35-500 - [id number] Implanted:Qty: 1 on 10/17/2022 by Imer Scott MD at [facility] Right: Hip [employer] [id number] 03/25/2032 1217-35-500 / / [id number] [employer] Actis 105mm Collar Hip 5 High Offset Stem Femoral [id number] - [id number] Implanted:Qty: 1 on 10/17/2022 by Imer Scott MD at [facility] Right: Hip [employer] [id number] 06/25/2032 [id number] / / [id number] [employer] Articul/Davie 36mm Cementless Hip +5mm 08/08 Taper Head Femoral Latex Free [id number] - [id number] Implanted:Qty: 1 on 10/17/2022 by Imer Scott MD at [facility] Right: Hip [employer] [id number] 08/25/2027 [id number] / / [id number] [employer] Suture Cossayuna Knotless Fibertak Resorbable Kp6842-[id number] - [id number] Implanted:Qty: 1 on 05/09/2023 by Wei Moran MD at [facility] Left: Metacarpal [employer] [id number] 01/24/2028 [id number] / / [id number] [facility] Sealant Fibrin Patch Rives Set Frozen Prefilled Syringe Artiss 10ml [id number] - [id number] - [id number] Implanted:Qty: 1 on 04/21/2024 by Jyoti Parsons MD at [facility] N/A: Abdomen [facility] [employer] 09/25/2025 [id number] / [id number] / [id number] Procedures Procedure Name Priority Date/Time Associated Diagnosis Comments EGFR STAT 06/20/2024 12:45 PM CDT HEMOGLOBIN A1C Routine 10/12/2022 12:10 PM WARDROBE TECHNICIAN Pre-op testing SERUM LIPID PANEL Routine 09/20/2016 1:5 6 PM WARDROBE TECHNICIAN from Last 3 Months or Most Recently [...] of Race in Diagnosing Kidney Disease, JASN 202). The CKD-EPI equation should not be used for patients with unstable renal function and has not been validated in children and those over 70. Current interpretive data was last reviewed 2021. Blood 06/20/2024 12:4 5 PM CDT 06/20/2024 12:47 PM CDT us Chuck Morris MD LAB BLOOD ORDERABLES Final Res ult AIME SALGUERO (DERIK) 1 [facility] Department [place] [address] * Hemoglobin A1c (10/12/2022 12:10 PM WARDROBE TECHNICIAN) Hgb A1C 4.7 4.0 - 5.6 % AIME SALGUERO (DERIK) Estimated Average Glucose 88 mg/dL AIME SALGUERO (BRANDEIS) Comment: The ADA recommends reporting an estimated Average Glucose (eAG) with all Hemoglobin A1c results using the equation derived from a study of 507 normal and diabetic adults. Minority populations were underrepresented and children were not included. (Diabetes Care 31:2575-7396, 2008). The eAG is not equivalent to a fasting glucose. Blood 10/12/2022 12:1 0 PM WARDROBE TECHNICIAN 10/12/2022 12:41 PM WARDROBE TECHNICIAN us Imer Scott MD LAB BLOOD ORDERABLES Fin al Result AIME SALGUERO (BRANDEIS) 1 [facility] Department [place] [address] * Serum lipid panel (09/20/2016 1:56 PM WARDROBE TECHNICIAN) [facility] Cholesterol 152 40 - 199 mg/dl CDR [...] revised on 2014. Serum 09/20/2016 1:56 PM WARDROBE TECHNICIAN us Historical Provider LAB BLOOD ORDERABLES Daija dasilva Result CDR HISTORICAL RESULTS from Last 3 Months or Most Recently Relevant to Health Maintenance Insurance [facility] MEDICARE ADVANTAGE [facility] MEDICARE [facility]ANT[facility] MEDICARE Address: [address] [address] [place] [address] [facility] MEDICARE [facility] MEDIC[facility] Address: [address] [address] [place] [address] IDPA Advance Directives For more information, please contact: [phone] * Full Code (Latest Code Status on File) Date Activated Date Inactivated Comments 10/17/2022 2:55 PM 10/19/2022 2:53 PM * Full Code Date Activated Date Inactivated Comments 07/04/2022 3:02 PM 07/05/2022 4:42 PM Care Teams Siding Applicator Relationship Specialty Start Date End Date Michael Arroyo NP [address] [address] PCP - General Nurse Practitioner 05/23/22 Imer Scott MD [address] [facility] [address] [place] [address] [place] [address] Surgeon Orthopedic Surgery 07/05/22
--- OUTSIDE RECORDS SUMMARY | 2025-06-28 16:46 | XMS_ITS | Clinical Summary ---
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 Gender Identity Not on file Sexual Orientation Not on file Plan of Treatment Health Maintenance Due Date Last Done Comments Cervical Cancer Screening Pa p Smear (Age 30 to 64) Every 3 Years 1981 Annual Physical 1984 Hepatitis C 1999 DTaP, Tdap and Td Vaccines ( 1 - Tdap) 2000 Hepatitis B Vaccines (1 of 3 - 19+ 3-dose series) 2000 HPV Vaccines (1 - 3-dose SCD M series) 2008 Cervical Cancer Screening Pa p with HPV Testing (Age 30 to 64) Every 5 Years 2011 Cervical Cancer Screening with HPV 2011 Mammogram Screening 2021 COVID-19 Vaccine (2024-2 6 season) 2025 Influenza Adult (#1) 2025 Hepatitis A Vaccines Aged Out No long er eligible based on patient's age to complete this topic Meningococcal B Vaccine Aged Out No l onger eligible based on patient's age to complete this topic Meningococcal Vaccine Aged Out No daryl megan eligible based on patient's age to complete this topic Pneumococcal Vaccine: Pediat rics (0 to 5 Years) and At-Risk Patients (6 to 49 Years) Aged Out No longer eligible b ased on patient's age to complete this topic RSV Immunizations Under 20 Months Aged Out No longer eligible based on patient's age to complete this topic
--- OUTSIDE RECORDS SUMMARY | 2025-06-28 16:46 | XMS_ITS | Encounter Summary ---
Author Organization [facility] Address [address] [place] [address] Phone Care Team Providers Care Cracker And Cookie Machine Operator Name Role Phone Michael Arroyo APRN, LYN Primary Care Pr ovider Niurka Byrne MD Unavailable Ash PRO MD, Courtney Unavailable [phone] Reason for Visit * Reason Comments Medication Refill Encounter Details Date Type Department Care Team (Late st Contact Info) Description 09/29/2021 Refill [facility] - Family Medicine [facility] [address] [place] [phone] Michael Arroyo APRN, LYN #[address] [address] Medication Refill Social History Tobacco Use Types [...] COVID-19? No / Unsure 09/14/2021 2:24 PM DATA CLERK documented as of this encounter Miscellaneous Notes * Telephone Encounter - Jelena Caballero RN - 10/02/2021 8:20 AM CST Last Rx 09/12/20 for 3 months - pt never had lab work done CLERK documented in this encounter Plan of Treatment Not on file documented as of this encounter Visit Diagnoses Diagnosis Vitamin D deficiency Unspecified vitamin D deficiency documented in this encounter Care Teams Cracker And Cookie Machine Operator Relationship Specialty Start Date End Date Michael Arroyo APRN, CORRECTIONAL CASE RECORDS SUPERVISOR #2 [facility] [address] [place] [address] PCP - General Certified Nurse Practitioner 03/02/20 Niurka Byrne MD #2 [facility] [address] [place] [phone] Consulting Physician Endocrinology 09/13/20 Marium Aleman III, MD #[address] [place] [address] Consulting Physician Urology 02/25/23 documented as of this encounter
--- OUTSIDE RECORDS SUMMARY | 2025-06-28 16:46 | XMS_ITS | Clinical Summary ---
Author Organization [facility] Address [address] [place] [address] Phone Care Team Providers Care Apprentice Painter Brush Name Role Phone Michael Arroyo APRN, RECEIVING WORKER Primary Care Pr ovider Niurka Byrne MD Unavailable Ash PRO MD, Courtney Unavailable [phone] Allergies Active Allergy Reactions Criticality Noted Date Comments Latex Hives Medium 06/20/2024 Medications Multiple Vitamins-Thurston als (Centrum Silver Adult 50+) Tablet Take 1 Tab by mouth every morning. Take one tablet by mouth daily Active calcium citrate (CALCITRATE) 950 (200 Ca) MG Tablet Take 950 mg by mouth. Active citalopram (CeleXA) 40 MG Tablet Take 1 Tablet by mouth daily. 90 Tablet 3 09/10/19 25 Active tiZANidine (ZANAFLEX) 2 MG Tablet Take 1 Tablet by mouth 3 times daily. 90 Tablet 5 04/20/20 25 Active esomeprazole (NexIUM) 40 MG CAPSULE DELAYED RELEASEIndicat ions:Colicky epigastric pain Take 1 Capsule by mouth daily. 90 Capsule 3 05/24/20 25 Active Ozempic, 1 MG/DOSE, 4 MG/3ML Solution Pen-injector 1 mg by Subcutaneous route once a week. 9 mL 05/24/20 25 Active Lisdexamfetami ne Dimesylate 30 MG Capsule 06/03/20 25 Active atomoxetine (Strattera) 25 MG Capsule Take 25 mg by mouth daily. 025 Discontinu ed(Med List Clean Up) HYDROcodone-ac etaminophen (NORCO) 5-325 MG TabletIndicati ons:Chronic joint pain Take 1 Tablet by mouth 2 times daily as needed for Moderate or more severe pain. 60 Tablet 05/24/20 25 025 Discontinu ed(Med List Clean Up) metroNIDAZOLE (FLAGYL) 500 MG Tablet Take 1 Tablet by mouth 2 times daily for 7 days. 14 Tablet 06/10/20 25 025 fluconazole (DIFLUCAN) 150 MG Tablet Take 1 Tablet by mouth once for 1 dose. 1 Tablet 06/11/20 25 025 Active Problems Problem Noted Date Diagnosed Date [...] Encounters Date Type Department Care Team Description 06/15/2025 Travel 06/10/2025 [facility] [place] [phone] Michael Arroyo APRN, CNP VAGINITIS SCREEN, MOLECULAR, CHLAMYDIA & GC DNA PROBE ADULT, SYPHILIS IGG/IGM W/REFLEX, Additional followed-up results: 2 06/08/2025 2:00 PM CDT [facility] [place] [phone] Michael Arroyo APRN, CNP Chronic hip pain, bilateral (Primary Dx); Screening examination for STI; Screening for HIV (human immunodeficiency virus) Discharge Disposition: Discharged to home or Selfcare 06/08/2025 Travel 06/07/2025 Results [facility] [place] [phone] Michael Arroyo APRN, CNP [facility] DR[facility] SCREEN AMB 06/03/2025 Telephone [facility] [place] [address] Michael Arroyo APRN, CNP 05/23/2025 MyChart RX Renewal [facility] [address] [place] [phone] Niurka Byrne MD Medication Renewal Reviewed 05/23/2025 MyChart [facility]al [facility] [place] [phone] Michael Arroyo APRN, CNP Medication Renewal Declined 04/19/2025 MyChart RX Renewal [facility] [address] [place] [phone] Niurka Byrne MD Medication Renewal Reviewed 04/19/2025 MyChart RX Renewal [facility] [address] [place] [address] Michael Arroyo, GLOBAL PRODUCT MANAGER, LYN Medication Renewal Request from Last 3 Months Immunizations Immunization Administration [...] drink = 0.6 oz pur e alcohol) [facility] Utilities Answer Date Recorded In the past 12 months has [employer], gas, oil, or water [employer] threatened to shut off services in your home? Yes 07/09/2024 Social Connection and Isolation Panel Answer Date Recorded In a typical week, how many times do you talk on the phone with family, friends, or neighbors? Three times a week 07/09/20 How often do you get togethe r with friends or relatives? Once a week 07/09/2024 How often do you attend chur or islam services? 1 to 4 times per year 07/09/2024 Do you belong to any clubs o r organizations such as yarsanism groups, unions, fraternal or athletic groups, or [...] housing, medical care, and heating? Hard 07/09/2024 [facility] [place] [facility] Occupat ional Health - Occupational Stress [...] any time in the past 12 m [facility], were you homeless or living in a senior care (including now)? No 07/09/2024 Education Answer Date [...] Sign Reading Time Taken Comments Blood Pressure 150/100 06/08/2025 1:55 PM CDT Pulse 94 06/08/2025 1:55 PM CDT Temperature 36.5 C (97.7 F) 06/08/2025 1:55 PM CDT Respiratory Rate 12 06/08/2025 1:55 PM CDT Oxygen Saturation 98% 06/08/2025 1:55 PM CDT Inhaled Oxygen Concentration - - Weight 74.6 kg (164 lb 6.4 oz) 06/08/2025 1:55 P M CDT Height 167.6 cm (5' 6) 06/08/2025 1:55 PM CDT Body Mass Index 26.53 06/08/2025 1:55 PM CDT Plan of Treatment Health Maintenance Due Date Last Done Comments DTaP/Tdap/Td Immunization (6 - Tdap) 06/06/1996 06/05/1996, 01/15/1986, 02/08/1983, Additional history exists Hepatitis B Immunization (1 of 3 - 19+ 3-dose series) 2000 Medicare Initial AWV G0438 06/26/2007 Human Papillomavirus (HPV) Immunization (1 - 3-dose SCDM series) 2008 Diabetes: Nephropathy Screening 11/07/2023 11/06/2022, 09/12/2020, 06/08/2020 Diabetes: Eye Exam 12/01/2024 12/02/2023 Diabetes: Hemoglobin A1c 03/15/202509/15/ 025, 05/12/2024, 07/10/2023, Additional history exists Influenza Immunization (#1) 2025 SARS-COV-2 Immunization ( season) 2025 Diabetes: Foot Exam 05/12/2025 05/12/2024, 11/21/2022, 06/19/2021, Additional history exists Mammogram 07/06/2025 07/06/2024, 04/2023, 11/22/2022 Cervical Cancer Screening (CCS) 10/08/2027 HPV/Cotest 10/08/2027 10/08/2022, 03/27/2022 Pap Smear 10/08/2027 10/08/2022, 09/2021, 03/03/2020 Colonoscopy 09/15/2030 09/15/2020 Colorectal Cancer Screening 09/15/2030 Respiratory Syncytial Virus (RSV) Immunization (Adult) (1 - 1-dose 75+ series) 2056 Discussion re Starting/Frequency of Mammograms Completed 07/06/2024, 07/04/2023, 12/18/2022, Additional history exists Hepatitis C Virus (HCV) Screening Completed 06/15/2025, 10/14/2024, 05/20/2024, Additional history exists Meningococcal Immunization (ACWY) Aged Out No longer eligible based on patient's age to complete this topic Pneumococcal Immunization Combined Discontinued Rotavirus Immunization Aged Out No lo nger eligible based on patient's age to complete this topic Procedures Procedure Name Priority Date/Time Associated Diagnosis Comments HIV 1 & 2 ANTIBODY & ANTIGEN SCREEN Routine 06/15/2025 12:05 PM CDT Screening for HIV (human immunodeficiency virus) HIV 1 & 2 ANTIBODY & ANTIGEN SCREEN PANEL Routine 06/15/2025 12:05 PM CDT Screening for HIV (human immunodeficiency virus) HEPATITIS C ANTIBODY Routine 06/15/2025 12:05 PM CDT Screening examination for STI SYPHILIS IGG/IGM W/REFLEX Routine 06/15/2025 12:05 PM CDT Screening examination for STI CHLAMYDIA & GC DNA PROBE Routine 06/08/2025 2:57 PM CDT Screening examination for STI CHLAMYDIA & GC DNA PROBE ADULT Routine 06/08/2025 2:57 PM CDT Screening examination for STI VAGINITIS SCREEN, MOLECULAR Routine 06/08/2025 2:57 PM CDT Screening examination for STI [facility] DRUG SCREEN AMB Routine 06/03/2025 Therapeutic drug monitoring POCT GLYCOSYLATED HEMOGLOBIN Routine 09/15/2024 1:34 PM WOOL HAT FINISHER Type 2 diabetes mellitus without complication, with long-term current use of insulin (HCC) GREGORY DIAG BILATERAL DIGITAL W CAD W ANDREEA Routine 07/06/2024 2:30 PM WOOL HAT FINISHER Abnormal mammogram HM DILATED EYE EXAM 12/02/2023 1 2:00 AM CDT PODIATRY CONSULT 11/21/2022 12:0 0 AM CDT CMP (COMPREHENSIVE METABOLIC PANEL) Routine 11/06/2022 4:17 PM CDT Hypochromic microcytic anemia HUMAN PAPILLOMA VIRUS (HPV) Routine 10/08/2022 4:56 PM WOOL HAT FINISHER Encounter for screening for human papillomavirus (HPV) PATHOLOGY CYTOLOGY COACH OPERATOR Routine 10/08/2022 4:56 PM WOOL HAT FINISHER Encounter for gynecological examination without abnormal finding Screening for malignant neoplasm of cervix from Last 3 Months or Most Recently Relevant to Health Maintenance Results * HIV 1 & 2 ANTIBODY & ANTIGEN SCREEN (06/15/2025 12:05 PM CDT) HIV 1 & 2 ANTIBODY & ANTIGEN SCREEN NON DETECTED NON DETECTED 06/15/2025 9:54 PM CDT [facility] Blood Venipuncture / Unknown 06/15/2025 12:05 PM CDT 06/15/2025 1:54 PM CDT us Michael Arroyo GLOBAL PRODUCT MANAGER, RECEIVING WORKER CHEMISTRY ORDERA BLES Final Result [facility] [address] [place] [address], [place] * SYPHILIS IGG/IGM W/REFLEX (06/15/2025 12:05 PM CDT) Pathologist [facility] SYPHILIS IGG/IGM Nonreactive Nonreactive 06/15/2025 9:54 PM CDT [facility] Blood Venipuncture / Unknown 06/15/2025 12:05 PM CDT 06/15/2025 1:55 PM CDT Michael Arroyo APRN, RECEIVING WORKER IMMUNOLOGY ORDER HELEN Final Result Performing Organization Address City/[facility]/ZIP Co de Phone Number [facility] [address] [place] [address], [place] * HEPATITIS C ANTIBODY (06/15/2025 12:05 PM CDT) Pathologist [facility] hepatitis C antibody 0.07 <1 S/CO 06/15/2025 9:40 PM CDT [facility] Comment: Signal/Cutoff ratio < 0.79 is Nondetected Signal/Cutoff ratio 0.80-0.99 is Grayzone Signal/Cutoff ratio > 0.99 is Detected Supplemental assays are recommended if signal/cutoff ratio is >/=1.00. Signal/cutoff ratio result >/= 5.00 is 97% predictive of positivity for recombinant immunoblot assay (RIBA) and will be reported to the [place] Department of Public [facility] as required. Blood Venipuncture / Unknown 06/15/2025 12:05 PM CDT 06/15/2025 1:55 PM CDT Michael Arroyo APRN, RECEIVING WORKER CHEMISTRY ORDERA BLES Final Result Performing Organization Address City/[facility]/ZIP Co de Phone Number [facility] [address] [place] [address], [place] * CHLAMYDIA & GC DNA PROBE ADULT (06/08/2025 2:57 PM CDT) Pathologist [facility] CHLAMYDIA DNA NEGATIVE NEGATIVE 06/09/2025 1:22 AM CDT [facility] Comment: Presumed negative for C. trachomatis. A negative result does not preclude C. trachomatis infection because results are dependent on adequate specimen collection, absence of inhibitors, and sufficient DNA to be detected. This test was performed using MYRIAM 5800 Real Time PCR. GC DNA NEGATIVE NEGATIVE 06/09/2025 1:22 AM CDT [facility] Comment: Presumed negative for N. gonorrhoeae. A negative result does not preclude N. gonorrhoeae infection because results are dependent on adequate specimen collection, absence of inhibitors, and sufficient DNA to be detected. This test was performed using MYRIAM 5800 Real Time PCR. Other (Self-collect vaginal swab) Non-Phlebotomy Collection / Unknown 06/08/2025 2:57 PM CDT 06/08/2025 2:57 PM CDT Michael Arroyo APRN, RECEIVING WORKER MICROBIOLOGY - G ENERAL ORDERABLES Final Result [facility] [address] [place] [address], * (ABNORMAL) VAGINITIS SCREEN, MOLECULAR (06/08/2025 2:57 PM CDT) TRICHOMONAS NOT DETECTED NOT DETECTED 06/09/2025 12:13 AM CDT [facility] BACTERIAL VAGINOSIS DETECTED(A) NOT DETECTED 06/09/2025 12:13 AM CDT [facility] YOLANDA NOT DETECTED NOT DETECTED 06/09/2025 12:13 AM CDT [facility] Comment: Yolanda group Not detected with the following possible Yolanda species: Yolanda albicans and/or Yolanda tropicalis and/or Yolanda parapsilosis and/or Yolanda dubliniensis YOLANDA GLABRATA NOT DETECTED NOT DETECTED 06/09/2025 12:13 AM CDT [facility] YOLANDA KRUSEI NOT DETECTED NOT DETECTED 06/09/2025 12:13 AM CDT [facility] Other VAGINAL STRUCTURE / Unknown Non-Phlebotomy Collection / Unknown 06/08/2025 2:57 PM CDT 06/08/2025 2:57 PM CDT Michael Arroyo APRN, CNP MICROBIOLOGY - G ENERAL ORDERABLES Final Result [facility] [address] [place] [address], [place] * [facility] DRUG SCREEN AMB (06/03/2025) AMPHETAMINES (AMP) POC BARBITURATES (BAR) BUPRENORPHINE (BUPG) POC BENZODIAZEPINE (BZO) POC COCAINE (KATIE) POC METHADONE (MTD) POC ECSTASY (MDMA) POC METHAMPHETAMINES (MET) POC MORPHINE OXYCODONE (OXY) POC PHENCYCLIDINE (PCP) POC PROPOXYPHENE (PPX) POC TRICYCLIC ANTIDEPRESSANTS (TCA) POC MARIJUANA (THC) POC 06/03/2025 Michael Arroyo APRN, CNP POINT OF CARE TE STING (MANUAL) Final Result * POCT GLYCOSYLATED HEMOGLOBIN (09/15/2024 1:34 PM WOOL HAT FINISHER) HGB-A1C 5.1 4 - 6 % Blood 09/15/2024 1:34 PM WOOL HAT FINISHER Michael Arroyo APRN, CNP POINT OF CARE TE STING (MANUAL) Final Result * GREGORY DIAG BILATERAL DIGITAL W CAD W ANDREEA (07/06/2024 2:30 PM WOOL HAT FINISHER) Anatomical Region Laterality Modality breast Bilateral Mammography 07/06/2024 2:33 PM WOOL HAT FINISHER Narrative 07/07/2024 8:00 AM WOOL HAT FINISHER - GREGORY DIAG BILATERAL DIGITAL W CAD [...] exams dated: 07/04/2023, 07/04/2023, 11/22/2022, and 12/07/2022 [facility]. BREAST TISSUE:There are scattered areas of fibroglandular [...] signed by: Gala Altamirano M.D. ll/:07/06/2024 16:38:23 Automatic Gluing Machine Operator(s): RT Abdelrahman(Marcial)(M), [facility] letter sent: Additional Imaging Reading location: [place] [...] exams dated: 07/04/2023, 07/04/2023, 11/22/2022, [facility] BRE[facility] TISSUE:There are scattered areas of fibroglandular [...] signed by: Gala Altamirano M.D. ll/:07/06/2024 16:38:23 Automatic Gluing Machine Operator(s): RT Abdelrahman(R)(M), [facility] letter sent: Additional Imaging Reading location: [place] Mammogram BI-RADS: Category 0: Incomplete: Need Additional Imaging Evaluation us Michael Arroyo APRN, LYN IMG MAMMO ORDERA BLES Final Result * HM DILATED EYE EXAM (12/02/2023 12:00 AM CDT) 12/02/2023 us Provider Scan PROCEDURE/MINOR SURGICAL ORDERAB LES Final Result SCAN * PODIATRY CONSULT (11/21/2022 12:00 AM CDT) 11/21/2022 us Ralph Bo MD GENERIC SCAN ORDERS CONSU LT Final Result SCAN * (ABNORMAL) CMP (COMPREHENSIVE METABOLIC PANEL) (11/06/2022 4:17 PM CDT) SODIUM 138 136 - 144 mmol/L 11/06/2022 5:09 PM CDT [facility] POTASSIUM 3.9 3.5 - 5.1 mmol/L 11/06/2022 5:09 PM CDT [facility] CHLORIDE 101 100 - 110 mmol/L 11/06/2022 5:09 PM CDT [facility] CO2, VENOUS 24 22 - 32 mmol/L 11/06/2022 5:09 PM CDT [facility] ANION GAP 16.9 8.0 - 20.0 mmol/L 11/06/2022 5:09 PM CDT [facility] GLUCOSE 94 70 - 99 mg/dL 11/06/2022 5:09 PM CDT [facility] BUN 17 6 - 20 mg/dL 11/06/2022 5:09 PM CDT [facility] CREATININE, BLOOD 0.55(L) 0.60 - 1.10 mg/dL 11/06/2022 5:09 PM CDT [facility] BUN/CREATININE RATIO 31(H) 12 - 20 ratio 11/06/2022 5:09 PM CDT [facility] TOTAL PROTEIN 7.4 6.0 - 8.3 g/dL 11/06/2022 5:09 PM CDT [facility] ALBUMIN 4.1 3.5 - 5.2 g/dL 11/06/2022 5:09 PM CDT [facility] Comment: The colormetric methods used for the determination of Albumin may lead to falsely elevated test results in patients suffering from renal failure or insufficiency due to interference with other proteins. A/G RATIO 1.2 1.0 - 2.0 11/06/2022 5:09 PM CDT [facility] CALCIUM 9.5 8.9 - 10.3 mg/dL 11/06/2022 5:09 PM CDT [facility] T BILI 0.7 <=1.2 mg/dL 11/06/2022 5:09 PM CDT [facility] SGOT (AST) 13 <=32 U/L 11/06/2022 5:09 PM CDT [facility] SGPT (ALT) 10 <=41 U/L 11/06/2022 5:09 PM CDT [facility] ALKALINE PHOSPHATASE 82 35 - 105 U/L 11/06/2022 5:09 PM CDT [facility] IS THE PATIENT REQUIRED TO BE FASTING? No 11/06/2022 5:09 PM CDT [facility] GFR, ESTIMATED >60 >=60 11/06/2022 5:09 PM CDT [facility] Comment: Creatinine Clearance is the preferred criteria for selecting drug dose adjustments in renally impaired patients. The GFR is provided as additional pertinent clinical information. GFR is reported in mL/min/1.73 sq m. Calculation based on the Chronic Kidney Disease Epidemiology Collaboration (CKD- EPI) equation refit without adjustment for race. GFR, EST. >60 >=60 023 5:09 PM CDT [facility] GFR, EST. NONAFRICAN >60 >=60 11/06/2022 5:09 PM CDT [facility] Blood Venipuncture / Unknown 11/06/2022 4:17 PM CDT 11/06/2022 4:35 PM CDT us Michael Arroyo GLOBAL PRODUCT MANAGER, RECEIVING WORKER CHEMISTRY ORDERA BLES Final Result [facility] [address] [place] [address] * PATHOLOGY CYTOLOGY COACH OPERATOR (10/08/2022 4:56 PM WOOL HAT FINISHER) SPECIMEN ADEQUACY Satisfactory for evaluation. Endocervical/transf ormation zone component is present. 10/15/2022 2:21 PM WOOL HAT FINISHER [facility] DESCRIPTIVE DIAGNOSIS NEGATIVE FOR INTRAEPITHELIAL LESIONS OR MALIGNANCY. 10/15/2022 2:21 PM WOOL HAT FINISHER [facility] at [address] WOOL HAT FINISHER OTHER FINDINGS Atrophic hormonal pattern. 10/15/2022 2:21 PM WOOL HAT FINISHER [facility] HPV Reflex if ASCUS? Yes 10/15/2022 2:21 PM WOOL HAT FINISHER [facility] Automated Examination Analysis of this sample has been assisted by an automated imaging and review system ([employer] System, [employer], [place], [place]). This case is further evaluated and finalized by a diesel power shovel operator and/or pathologist. 10/15/2022 2:21 PM WOOL HAT FINISHER [facility] Disclaimer The PAP smear is a screening [...] 65 unless clinically indicated. 10/15/2022 2:21 PM WOOL HAT FINISHER [facility] Other CERVIX UTERI STRUCTURE / Unknown Non-Phlebotomy Collection / Unknown 10/08/2022 4:56 PM WOOL HAT FINISHER 10/08/2022 4:57 PM WOOL HAT FINISHER us Wilber Bobby MD PATHOLOGY/CYTOLOGY ORDERABLES nal Result [facility] [address] [place] [address], * HUMAN PAPILLOMA VIRUS (HPV) (10/08/2022 4:56 PM WOOL HAT FINISHER) HPV OTHER HIGH RISK TYPES, PCR NEGATIVE NEGATIVE 10/12/2022 7:19 AM WOOL HAT FINISHER [facility] Comment: The following Other High Risk types [...] TYPE 16 NEGATIVE NEGATIVE 10/12/2022 7:19 AM [facility] Comment: A negative high-risk HPV result [...] TYPE 18 NEGATIVE NEGATIVE 10/12/2022 7:19 AM [facility] Comment: A negative high-risk HPV result [...] SCREENING OR DIAGNOSTIC SCREENING 10/12/2022 7:19 AM [facility] Other Non-Phlebotomy Collection / Unknown 10/08/2022 4:56 PM WOOL HAT FINISHER 10/08/2022 4:57 PM WOOL HAT FINISHER Narrative [facility] - 10/12/2022 7:19 AM WOOL HAT FINISHER Performed by Real-Time Polymerase Chain Reaction (PCR) on the Martina Myriam 4800. This assay has been validated for use with post-aliquot samples from the [employer] T5000 processor. us Wilber Bobby MD LAB SEND OUTS Final Result [facility] [address] [place] [address], [facility] [address] [place] [address] from Last 3 Months or Most Recently Relevant to Health Maintenance Insurance MEDICAID [place] MEDICARE C [employer] Advance Directives * Full Code (Latest Code Status on File) Date Activated Date Inactivated Comments 09/13/2020 7:15 AM 09/15/2020 9:13 AM Care Teams Apprentice Painter Brush Relationship Specialty Start Date End Date Michael Arroyo APRN, RECEIVING WORKER #2 [facility] [address] [place] [address] PCP - General Certified Nurse Practitioner 03/02/20 Niurka Byrne MD #2 [facility] [address] [place] [address] Consulting Physician Endocrinology 09/13/20 Marium Aleman III, MD [address] [place] [address] Consulting Physician Urology 02/25/23
--- OUTSIDE RECORDS SUMMARY | 2025-06-28 16:46 | XMS_ITS | Encounter Summary ---
Author Organization [facility] Address [address] [place] [address] Phone Care Team Providers Care Adhesive Bonding Machine Operator Name Role Phone Michael Arroyo APRN, LYN Primary Care Pr ovider Niurka Byrne MD Unavailable Ash PRO MD, Courtney Unavailable [phone] Reason for Visit * Reason Comments Medication Refill Encounter Details Date Type Department Care Team (Late st Contact Info) Description 02/02/2021 Refill [facility] [address] [place] [id number] Michael Arroyo APRN, LYN [address] [address] Medication Refill Social History Tobacco Use Types [...] encounter Miscellaneous Notes * Telephone Encounter - AdaEulaliajuan De La Cruz RN - 02/03/2021 10:04 AM CDT Medication failed the protocol, provider to review and approve the medication order if appropriate. Requested Prescriptions Pending Prescriptions Disp Refills ergocalciferol (VITAMIN D) 23828 UNIT Capsule [Pharmacy Med Name: VITAMIN D2 1.25MG(50,000 UNIT)] 4Capsule 2 Sig: TAKE 1 CAPSULE BY MOUTH ONE TIME PER WEEK [facility]finch Off-Protocol Failed - 02/02/2021 1:32 PM Failed - Medication not assigned to a protocol, review manually. Passed - Valid encounter within last 12 months Past Office Visits Recent Outpatient Visits 3 weeks ago Carpal tunnel syndrome of left wrist [facility] - Michael Philip APN, UTILITY WORKER DRIVER 2 months ago Primary osteoarthritis of both hips [facility] - Michael Philip APN, UTILITY WORKER DRIVER 3 months ago Obstructive sleep apnea syndrome [facility] - Michael Philip APN, UTILITY WORKER DRIVER 5 months ago Morbid (severe) obesity due to excess calories (HCC) [facility] - Michael Philip APN, UTILITY WORKER DRIVER 11 months ago Essential hypertension [facility] - Michael Philip APN, UTILITY WORKER DRIVER Upcoming Appointments Future Appointments In 2 months Niurka Byrne MD [facility] Endocrinology - [place] MATERIAL MIXER - Recent and Past Visits Recent Visits Date Type Provider Dept 01/11/21 Telemedicine Michael Arroyo APN, CNP [facility] [place] 11/08/20 Office Visit Michael Arroyo APN, CNP [facility] 10/20/20 Telemedicine Michael Arroyo APN, CNP [facility] [place] 08/25/20 Telemedicine Michael Arroyo APN, CNP [facility] [place] 03/02/20 Office Visit Michael Arroyo ANALYSIS EVALUATOR, UTILITY WORKER DRIVER [facility] Showing recent visits within past 460 [...] deficiency documented in this encounter Care Teams Adhesive Bonding Machine Operator Relationship Specialty Start Date End Date Michael Arroyo APRN, UTILITY WORKER DRIVER #2 [facility] [address] [place] [address] PCP - General Certified Nurse Practitioner 03/02/20 Niurka Byrne MD #[address] [address] Consulting Physician Endocrinology 09/13/20 Marium Aleman III, MD [address] [place] [address] Consulting Physician Urology 02/25/23 documented as of this encounter
--- OUTSIDE RECORDS SUMMARY | 2025-06-28 16:46 | XMS_ITS | Encounter Summary ---
Author Organization [facility] Address [address] [place] [address] Phone Care Team Providers Care Lpta Name Role Phone Michael Arroyo APRN, LYN Primary Care Pr ovider Niurka Byrne MD Unavailable Ash PRO MD, Courtney Unavailable [phone] Reason for Visit * Reason Comments Medication Refill Encounter Details Date Type Department Care Team (Late st Contact Info) Description 01/12/2023 Refill [facility] - Family Medicine [facility] [address] [place] [id number] Michael Arroyo APRN, WAFER POLISHING WORKER [address] [address] Medication Refill Social History Tobacco Use Types [...] [place] 10/08/22 Office Visit Wilber Bobby MD [facility] [place] Showing recent visits within past 182 days and meeting all other requirements Future Appointments Date Type Provider Dept 03/08/23 Appointment Michael Arroyo APRN, CNP [facility] Showing future appointments within next 90 days and meeting all other requirements Passed - Patient has established therapy with Citalopram for at least 6 months documented in this encounter Plan of Treatment Not on file documented as of this encounter Visit Diagnoses Not on filedocumented in this encounter Care Teams Lpta Relationship Specialty Start Date End Date Michael Arroyo APRN, WAFER POLISHING WORKER [address] [facility] [address] [place] [address] PCP - General Certified Nurse Practitioner 03/02/20 Niurka Byrne MD [address] [facility] [address] [place] [address] Consulting Physician Endocrinology 09/13/20 Marium Aleman III, MD [address] [place] [address] Consulting Physician Urology 02/25/23 documented as of this encounter
--- OUTSIDE RECORDS SUMMARY | 2025-06-28 16:46 | XMS_ITS | Encounter Summary ---
Author Organization [facility] Address [address] [place] [address] Phone Care Team Providers Care Financial Services Auditor Name Role Phone Michael Arroyo APRN, LYN Primary Care Pr ovider Niurka Byrne MD Unavailable Ash PRO MD, Courtney Unavailable [phone] Reason for Visit * Reason Onset Date Comments Medication Refill 06/08/2021 Encounter Details Date Type Department Care Team (Late st Contact Info) Description 06/08/2021 Refill [facility] - [facility] - [place] [address] [place] [id number] Michael Arroyo APRN, EYEGLASS INSPECTOR #[address] [address] Medication Refill Social History Tobacco Use Types [...] week ago Seasonal allergic rhinitis, unspecified trigger [facility] Family Medicine - Michael Philip APN, EYEGLASS INSPECTOR 4 months ago Carpal tunnel syndrome of left wrist [facility] - Michael Philip APN, EYEGLASS INSPECTOR 7 months ago Primary osteoarthritis of both hips [facility] - Michael Philip APN, EYEGLASS INSPECTOR 7 months ago Obstructive sleep apnea syndrome [facility] - Michael Philip APN, EYEGLASS INSPECTOR 9 months ago Morbid (severe) obesity due to excess calories (HCC) [facility] Family [facility] - Michael Philip APN, EYEGLASS INSPECTOR Upcoming Appointments Future Appointments In 1 week Niurka Byrne MD [facility] [place] Visit [employer] 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 OPERATOR - Recent and Past Visits Recent Visits Date Type Provider Dept 05/31/21 Telemedicine Michael Arroyo APN, CNP [facility] 01/11/21 Telemedicine Michael Arroyo APN, LYN [facility] [place] 11/08/20 Office Visit Michael Arroyo APN, CNP [facility] 10/20/20 Telemedicine Michael Arroyo APN, LYN [facility] [place] 08/25/20 Telemedicine Michael Arroyo APN, LYN [facility] [place] Showing recent visits within past 460 days with a meds authorizing provider and meeting all other requirements Future Appointments No visits were found meeting these conditions. Showing future appointments within next 90 days with a meds authorizing provider and meeting all other requirements * Telephone Encounter - Lucy Arias - 06/08/2021 2:17 PM CDT Received a faxed Rx request from pharmacy. Reordered refill medication(s) requested and pended for nurse and physician/THLAIA review. Refill encounter routed to [email or web address] for processing. documented in this encounter Plan of Treatment Not on file documented as of this encounter Visit Diagnoses Diagnosis Primary osteoarthritis of both hips Primary localized osteoarthrosis, pelvic region and thigh documented in this encounter Care Teams Financial Services Auditor Relationship Specialty Start Date End Date Michael Arroyo APRN, LYN [address] [address] PCP - General Certified Nurse Practitioner 03/02/20 Niurka Byrne MD [address] [address] Consulting Physician Endocrinology 09/13/20 Marium Aleman III, MD [address] [place] [address] Consulting Physician Urology 02/25/23 documented as of this encounter
[2025-06-28 16:50] VITALS: BP 138/71; PULSE 100; RESP 20; TEMP 36.9; O2SAT 100
--- NOTE | 2025-06-28 17:41 | ED_ITS ---
HPI - URI/Sore Throat General Chief Complaint: Upper Respiratory Infection Stated Complaint: Throat pain Time Seen by Provider: 06/28/25 17:41 Source: patient, RN notes reviewed and old records reviewed Mode of arrival: ambulatory Limitations: no limitations History of Present Illness HPI Narrative: 45-year-old female presents to the [facility] with a sore throat for 3 days. no treatment prior to arrival Related Data Home Medications ?Medication ?Instructions ?Recorded ?Confirmed ?Last Taken ?Type citalopram 40 mg tablet (Celexa) 40 mg PO DAILY 01/10/23 Unknown History omeprazole 20 mg capsule,delayed mg 09/24/23 Unknown History release esomeprazole magnesium 40 mg mg 06/28/25 Unknown Hist ory capsule,delayed release hydrocodone 5 mg-acetaminophen 325 tablet 06/28/25 Un known History mg tablet lisdexamfetamine 30 mg capsule mg 06/28/25 Unknown Hi story tizanidine 2 mg tablet mg 06/28/25 Unknown History Allergies Allergy/AdvReac Type Severity Reaction Status Date / Time No Known Allergies Allergy Verified 06/28/25 17:00 Review of Systems Review of Systems: All systems reviewed & are unremarkable except as noted in HPI and below Constitutional: Constitutional: Reports no additional constitutional complaints ENT: Reports as per HPI and Reports sore throat Cardiovascular: Cardiovascular: Reports no additional cardiovascular complaints, Denies chest pain and Denies dyspnea Respiratory: Respiratory: Reports no additional respiratory complaints, Denies chest congestion, Denies cough and Denies dyspnea Musculoskeletal: Musculoskeletal: Reports no additional musculoskeletal complaints Integumentary/Breasts: Skin/Breast: Reports system reviewed and no additional complaints, except as docu PMFSH Past Medical History Medical History History of colon polyps Bipolar disorder Diabetes Carpal tunnel syndrome, bilateral Chronic back pain Sleep apnea Asthma HTN (hypertension) Surgical History Surgical History History of hand surgery Right thumb tendon repair History of carpal tunnel release of both wrists left 2011 right 2013 History of cholecystectomy History of tonsillectomy Family History Family History Father Diabetes mellitus Hypertension Mother Depression Grandparent Cancer Grandparent Diabetes mellitus Hypertension Cancer Cerebrovascular accident Social History Social History Smoking status: Never smoker Alcohol intake: never Substance use: current Substance use type: marijuana Lack of Transportation: No Lack of Food: Sometimes True Current Housing: I Have Housing Concerned About Future Housing: No Difficulty Paying Gas/Electric Bills: No Difficulty Paying for Meds: No Currently Unemployed: No Education: High School Diploma/GED Difficulty w/ Childcare or Family Care: No Comments At the time of my signature, I reviewed and agree with the nursing past medical, surgical, social, and family history. There is no relevant family history pertinent to the patient complaint. Exam Const: General: cooperative, healthy appearing, comfortable, no acute distress, well developed, alert and well nourished Nutritional Appearance: well nourished Orientation/consciousness: patient oriented x3 Limitations: no limitations HENMT: Head: normal to inspection Mouth: Yes Normal oral and palatal mucosa present, Yes lip normal, Yes tongue normal and Yes moist mucous membranes Throat: posterior oropharynx normal, uvula midline, postnasal drainage and uvular edema Eyes: General: appearance normal, both eyes and all related structures Alignment and Position: alignment normal Neck: Neck: normal visual inspection, full ROM, no lymphadenopathy and no meningeal signs Chest: Chest palpation & inspection: normal inspection of the chest Resp: Effort & Inspection: normal respiratory effort and able to speak in complete sentences Auscultation: clear to auscultation bilaterally, no cr ackles, no rales, no rhonchi and no wheezes Cardio: Rate: regular rate Skin: General skin exam: normal color and no rashes or lesions noted Neuro: General: patient oriented x3, gait normal, moves all extremities and no meningeal signs Cognition (Neuro): normal cognition Speech: normal speech Gait exam (Neuro): Normal gait present Extrem: General: normal to inspection, full ROM, capillary refill normal and normal gait Psych: Appearance: grossly normal and well kempt Mental Status: mental status grossly normal Speech and movement: Normal speech and movement present and Clear speech present Affect: normal affect Attitude: cooperative Course Course Level of Care: Express Care Visit Vital Signs Vital signs: Vital Signs Temperature 98.4 F 06/28/25 16:50 Pulse Rate 100 06/28/25 16:50 Respiratory Rate 20 06/28/25 16:50 Blood Pressure 138/71 06/28/25 16:50 Pulse Oximetry 100 06/28/25 16:50 Oxygen Delivery Room Air 06/28/25 16:50 Temperature 98.4 F 06/28/25 16:50 Pulse Rate 100 06/28/25 16:50 Respiratory Rate 20 06/28/25 16:50 Blood Pressure 138/71 06/28/25 16:50 Pulse Oximetry 100 06/28/25 16:50 Oxygen Delivery Room Air 06/28/25 16:50 Reviewed MDM - URI/Sore Throat MDM Narrative Medical decision making narrative: patient sitting in exam room. Patient is nontoxic, vitals stable. Patient presents with sore throat for 3 days. Strep test negative. Will culture. No acute findings other than postnasal drainage noted patient appropriate for outpatient treatment with close follow-up. Discharge instructions reviewed with patient, as well as provided in writing per nursing staff. The instructions also include specific and strict return/GO TO THE ER as well as f/u information. All questions have been answered, and the patient deny any further questions with discharge and discharge plan. Some parts of this dictation were generated by voice recognition software and may contain typographical and/or grammatical inaccuracies. Differential Diagnosis Differential diagnosis: Likely upper respiratory infection, otitis media, sinusitis, viral infection, bronchitis, influenza and pharyngitis Lab Data Labs: Lab Results 06/28/25 Range/Units 17:48 POC Grp A Strep Screen Negative (Negative) reviewed Critical Care Time Critical Care Time Critical Care Time: No Discharge Plan Discharge Clinical Impression: Pharyngitis, Post-nasal drainage Patient Disposition: Home Condition: Stable Instructions: Antibiotic Form, Pharyngitis (ED), Postnasal Drip (DC) Additional Instructions: Your rapid strep swab was negative today at [facility]. A throat culture will be sent to the laboratory for further testing. If the test is positive, you will receive a phone call within 48 hours and an appropriate antibiotic will be initiated at that time. Your symptoms are likely due to a viral illness, which is not treated with antibiotics. Typically viral infections last 7-10 days, can linger for couple of weeks. It is very important to treat your symptoms. Drink plenty of water, Gatorade, Pedialyte, ice pops or Jell-O. -Alternate Tylenol and Motrin per package directions for fever or pain. You can alternate every 4 hours -Antihistamine medication such as Zyrtec/Claritin/Neha during the day can help improve symptoms. -doing daily nasal irrigations can help relieve pressure your sinuses. Things like a Neti pot -Use Flonase twice a day for 5 days then daily to help reduce the inflammation and dry up your sinuses. -You can also use Mucinex. Be sure to drink plenty of water with this medication at least 8 ounces with every dose and it is important to drink 8 to 10 glasses of water per day. Water is a natural decongestant -Eat and drink things that are easy to swallow, like tea or soup, or popsicles. -Oral rinses such as: Salt water gargles and/or may use topical anesthetic (eg. Chloraseptic spray) or lozenges to relieve dryness or throat pain). -Frequent hand washing or hand waiter/waitress head is one of the best ways to prevent spread of infection. -Using a vaporizer or humidifier at night will also help thin secretions and help with coughing up phlegm. -Follow up with primary care provider in 7-10 days if condition is not improving - For new or worsening symptoms go directly to the nearest ER Patient Language: Bhutanese Prescriptions: No Action omeprazole 20 mg capsule,delayed release(DR/EC) esomeprazole magnesium 40 mg capsule,delayed release(DR/EC) tizanidine 2 mg tablet hydrocodone-acetaminophen 5-325 mg tablet lisdexamfetamine 30 mg capsule citalopram [Celexa] 40 mg tablet 40 mg PO DAILY Follow-up/Referrals: UNKNOWN,DOCTOR [Primary Care Provider] Stand Alone Forms: Work/School Release IP Time of Disposition: 17:47
[2025-06-28 17:50] LABS: EDSTREPNEGPOS1 Negative (Negative)
== END 2025-06-28 17:53 | disposition home or self-care (01) ==
PROVIDERS: Emergency Provider Nurse Practitioner
DX: J02.9 Acute pharyngitis, unspecified (principal); R09.82 Postnasal drip; F12.90 Cannabis use, unspecified, uncomplicated; E11.9 Type 2 diabetes mellitus without complications; I10 Essential (primary) hypertension; J45.909 Unspecified asthma, uncomplicated
CPT/HCPCS: 87081; 87880; 99213; G0463